=== PATIENT | female | born 1940 | race Caucasian/White ===

== ENCOUNTER → 2018-01-24 12:07 | Outpatient (CLI) | payer MEDICARE, SELFPAY ==
[2018-01-24 13:37] LABS: Cholesterol 202 mg/dL (140-199); HDL Cholesterol 66 mg/dL (40-60); LDL Cholesterol Calculated 116 mg/dL (<100); Triglycerides 101 mg/dL (35-150)
== END ==
PROVIDERS: PCP Family Medicine; Visit Provider Family Medicine
DX: E78.2 Mixed hyperlipidemia (principal)
CPT/HCPCS: 36415; 80061

== ENCOUNTER → 2018-04-07 11:12 | Outpatient (CLI) | payer MEDICARE, SELFPAY ==
[2018-04-07 12:52] LABS: Thyroid Stimulating Hormone 0.69 uIU/mL (0.47-4.68)
[2018-04-07 14:26] LABS: Folate 6.6 ng/mL (2.76-20.0); Vitamin B12 306 pg/mL (239-931)
== END ==
PROVIDERS: PCP Family Medicine; Visit Provider Psychiatry & Neurology Psychiatry
DX: F32.9 Major depressive disorder, single episode, unspecified (principal)
CPT/HCPCS: 36415; 82607; 82746; 84443

== ENCOUNTER → 2018-04-28 09:49 | Outpatient (CLI) | payer MEDICARE, SELFPAY ==
--- NOTE | 2018-04-28 | DI.MRI.S_ITS ---
PROCEDURE: MR LUMBAR SPINE WO CON INDICATIONS: RADICULOPATHY LUMBAR TECHNIQUE: Noncontrast sagittal T1 spin echo and T2 fast echo, sagittal STIR, axial T1 and T2 fast spin echo through the lumbar spine. In cases with scoliosis, additional coronal T2 fast spin echo may be performed. COMPARISON: [facility], MR, L-SPINE WITHOUT CONTRAST, 07/02/2016, 17:30. [facility], CR, L-SPINE 2-3 VIEWS, 06/08/2016, 13:36. FINDINGS: Image quality: Diagnostic, with note made of motion artifact. Alignment and Curvature: There is minimal retrolisthesis at L3-L4 and L4-L5. Bone Marrow: Marrow is of normal overall signal. No acute vertebral body compression fractures. Spinal Cord: Conus medullaris terminates at the L1 level. Visualized cord demonstrates normal signal and size. Paraspinous Soft Tissues: No paravertebral masses. T12-L1: The disc height is well-preserved. Loss of disc signal is seen at this level. Mild to moderate generalized disc bulge is seen. No neural foraminal narrowing is seen. Mild central canal narrowing is seen. L1-L2: The disc height is well-preserved. Loss of disc signal is seen at this level. An annular fissure is seen posteriorly, as on series 5 image 11. Uhwy-[id number]-[id number] disc bulge is seen at this level. No significant neural foraminal narrowing is seen. Mild to moderate central canal narrowing is seen. When comparison is made with the prior examination, these findings are similar. L2-L3: Mild to moderate loss of disc height and disc signal are seen. Moderate generalized disc bulge is seen. Reactive marrow endplate changes are seen, which are hyperintense on T1-weighted and T2-weighted imaging and most consistent with fatty metaplasia (Modic type II changes). Mild to moderate bilateral neural foraminal narrowing is seen. Moderate central canal narrowing is seen. These degenerative changes have progressed compared to 2016. L3-L4: Moderate to severe loss of disc height and disc signal are seen. Reactive marrow endplate changes are seen which are hypointense on T1-weighted imaging and hyperintense on T2 weighted imaging, which is most consistent with edema (Modic type I changes). Moderate to prominent disc bulge is seen, with a central disc extrusion present. There is an associated annular fissure, as on series 5 image 8. There is moderate right-sided and moderate to severe left-sided neural foraminal narrowing. There is associated impingement upon the exiting left L3 nerve root. Moderate to severe central canal narrowing is seen. These degenerative changes are mildly progressed compared to 2016. L4-L5: Moderate loss of disc height and disc signal are seen. Moderate generalized disc bulge is seen. There is a superimposed right lateral recess disc extrusion, with inferior migration of disc material, as on series 4 image 8 and on series 7 image 10. There is a faintly seen annular fissure posteriorly, as on series 3 image 9. Mild to moderate facet hypertrophy is seen. There is moderate to severe right-sided neural foraminal narrowing seen, with associated impingement upon the exiting right L4 nerve root. Moderate left-sided neural foraminal narrowing is seen. Severe central canal narrowing is seen at this level. Compared to 2016, these degenerative changes are minimally progressed. L5-S1: The disc height is well-preserved. Loss of disc signal is seen at this level. At Mild loss of disc height is seen. Loss of disc signal is seen. There is a central disc protrusion, as on series 7 image 5. Mild to moderate hypertrophy is seen. There is mild to moderate left-sided and no significant right-sided neural foraminal narrowing seen. Minimal central canal narrowing is seen. Compared to 2016, these degenerative changes are similar. IMPRESSION: Overall mild progression of degenerative change compared to 2016. The degenerative changes are worst at the L3-L4 and L4-L5 levels. Dictated by: Matthew Borjas M.D. on 04/28/2018 at 10:03 Approved by: Matthew Borjas M.D. on 04/28/2018 at 10:14
== END ==
PROVIDERS: PCP Family Medicine; Visit Provider Physical Medicine & Rehabilitation Pain Medicine
DX: M51.16 Intervertebral disc disorders with radiculopathy, lumbar region (principal)
CPT/HCPCS: 72148

== ENCOUNTER → 2018-07-25 13:34 | Outpatient (CLI) | payer MEDICARE, SELFPAY ==
[2018-07-25 14:19] LABS: Add Manual Diff / Slide Review NO; Basophils Percent Auto 0.7 % (0-2); Eosinophils Percent Auto 1.9 % (2-4); Hematocrit 35.4 % (36-46); Hemoglobin 12.2 g/dL (12.0-16.0); Lymphocytes Percent Auto 16.7 % (25-40); Mean Corpuscular HGB Conc 34.6 % (30-36); Mean Corpuscular Hemoglobin 33.4 PG (26-34); Mean Corpuscular Volume 96.5 fL (80-100); Monocytes Percent Auto 7.9 % (3-14); Neutrophils Absolute Auto 5700 /uL (3000-5900); Neutrophils Percent Auto 72.8 % (50-75); Platelet Count 223 X10^3/uL (150-400); Red Blood Cell Count 3.67 X10^6/uL (4.0-5.2); Red Cell Distribution Width 14.2 % (11.6-14.8); White Blood Cell Count 7.8 X10^3/uL (4.5-11.0)
[2018-07-25 14:21] LABS: Reticulocyte Count, Percent 1.8 % (1.06-2.63)
[2018-07-25 14:30] LABS: Cholesterol 172 mg/dL (140-199); HDL Cholesterol 58 mg/dL (40-60); HEMOLYSIS < 15 (0-50); Iron 63 ug/dL (37-170); LDL Cholesterol Calculated 94 mg/dL (<100); Triglycerides 102 mg/dL (35-150)
[2018-07-25 14:41] LABS: Percent Iron Saturation 23 % (15-50); Total Iron Binding Capacity 273 ug/dL (265-497); Transferrin 229 mg/dL (206-381)
[2018-07-25 15:21] LABS: Alanine Aminotransferase 20 IU/L (9-52); Albumin 4.3 g/dL (3.5-5.0); Albumin Globulin Ratio 1.9 (1.0-2.8); Alkaline Phosphatase 80 U/L (38-126); Aspartate Aminotransferase 18 IU/L (14-36); BUN Creatinine Ratio 16.3 (6-22); Bilirubin Total 0.3 mg/dL (0.2-1.3); Blood Urea Nitrogen 13 mg/dL (7-17); Calcium 9.6 mg/dL (8.4-10.2); Carbon Dioxide 24 mmol/L (22-32); Chloride 103 mmol/L (98-107); Estimated Glomerular Filt Rate > 60.0 mL/min (>60); Globulin 2.3 g/dL (1.7-4.1); Glucose 87 mg/dL (80-110); HEMOLYSIS < 15 (0-50); Potassium 4.5 mmol/L (3.4-5.1); Sodium 139 mmol/L (137-145); Total Protein 6.6 g/dL (6.3-8.2)
[2018-07-25 15:32] LABS: Vitamin D 25 Hydroxy (D3) 36.7 ng/mL (30.0-100.0)
== END ==
PROVIDERS: Family Provider Psychiatry & Neurology Psychiatry; PCP Student in an Organized Health Care Education/Training Program; Visit Provider Student in an Organized Health Care Education/Training Program
DX: D64.9 Anemia, unspecified (principal); E55.9 Vitamin D deficiency, unspecified; R25.1 Tremor, unspecified; F33.1 Major depressive disorder, recurrent, moderate; F41.9 Anxiety disorder, unspecified
CPT/HCPCS: 36415; 80053; 80061; 82306; 83540; 83550; 85025; 85045

== ENCOUNTER → 2018-12-30 13:02 | Outpatient (CLI) | payer MEDICARE, SELFPAY ==
--- NOTE | 2018-12-30 | DI.MRI.S_ITS ---
PROCEDURE: MR CERVICAL SPINE WO CON INDICATIONS: Bilateral arm tremors TECHNIQUE: Noncontrast sagittal T1 spin echo and T2 fast spin echo, sagittal STIR, foraminal oblique sagittal T2 fast spin echo, and axial gradient echo or T2 fast spin echo through the cervical spine. COMPARISON: [facility], , NM BONE SCAN WHOLE BODY, 08/27/2000, 13:52. FINDINGS: Image quality: Excellent. Alignment and Curvature: There is grade 1 anterolisthesis at C6-C7. Bone Marrow: Degenerative endplate signal changes. Spinal Cord: Visualized spinal cord has normal size and signal. No cerebellar tonsillar herniation. Paraspinous Soft Tissues: No paravertebral masses. Prevertebral soft tissues are normal in thickness. C2-C3: Mild loss of disc height and disc desiccation. There is mild posterior disc bulge and bilateral uncovertebral hypertrophy. The central canal is patent. There is moderate foraminal stenosis. No definitive nerve root impingement. C3-C4: Preserved disc height. Mild disc desiccation. There is mild posterior disc bulge. Moderate right and mild left facet arthropathy. The central canal is patent. There is [id number] foraminal stenosis and possible nerve root impingement. C4-C5: Moderate loss of disc height and disc desiccation. There is mild posterior disc bulge and posterior and left posterior lateral annular fissure. Moderate facet arthropathy bilaterally. The central canal is moderately narrowed. There is mild bilateral foraminal stenosis. No definitive nerve root impingement. C5-C6: Moderate loss of disc height and disc desiccation. There is diffuse posterior disc bulge and uncovertebral hypertrophy. Moderate facet arthropathy bilaterally. The central canal is mildly narrowed. There is severe right and moderate left foraminal stenosis. No definitive nerve root impingement. C6-C7: Severe loss of disc height and disc desiccation. There is circumferential posterior disc bulge and posterior and to uncovertebral hypertrophy. Mild facet arthropathy bilaterally. The central canal is moderately narrowed. There is moderate bilateral foraminal stenosis. No definitive nerve root impingement. C7-T1: Preserved height. Mild disc desiccation. There is mild posterior disc bulge. Mild facet arthropathy bilaterally. The central canal is mildly narrowed. No foraminal stenosis. No definitive nerve root impingement. T1-T2: There is a large posterior disc osteophyte complex causing moderate central canal stenosis. IMPRESSION: 1. Multilevel degenerative disc disease and facet arthropathy as described. 2. Multilevel central canal stenosis as described, moderate at C4-C5, C6-7 C7 and T1-T2. 3. Multilevel foraminal stenosis as described. Dictated by: Dougie Rosales M.D. on 12/30/2018 at 16:40 Approved by: Dougie Rosales M.D. on 12/30/2018 at 18:09
--- NOTE | 2018-12-30 | DI.MRI.S_ITS ---
PROCEDURE: MR LUMBAR SPINE WO CON INDICATIONS: Low back and right leg radicular pain. Bilateral leg tremors TECHNIQUE: Noncontrast sagittal T1 spin echo and T2 fast echo, sagittal STIR, axial T1 and T2 fast spin echo through the lumbar spine. In cases with scoliosis, additional coronal T2 fast spin echo may be performed. COMPARISON: [facility], MR, L-SPINE WITHOUT CONTRAST, 07/02/2016, 17:30. [facility], MR, MR LUMBAR SPINE WO CON, 04/28/2018, 10:11. FINDINGS: Image quality: Excellent. Alignment and Curvature: There is mild scoliosis. There is grade 1 retrolisthesis of L3 on L4 and L4-L5. Bone Marrow: Mild chronic compression fracture of T12. There degenerative endplate signal changes scattered in lumbar spine. No acute vertebral body compression fractures. Spinal Cord: Conus medullaris terminates at the L1-L2 level. Visualized cord demonstrates normal signal and size. Paraspinous Soft Tissues: No paravertebral masses. L1-L2: Preserved disc height. Moderate disc desiccation. There is diffuse posterior disc bulge and posterior central annular fissure. Mild bilateral facet arthropathy. The central canal is mildly narrowed. No foraminal stenosis. No definitive nerve root impingement. No significant change from the last exam. L2-L3: Moderate loss of disc height and disc desiccation. There is diffuse posterior disc bulge and disc osteophyte complex. Mild bilateral facet arthropathy. The central canal is mildly narrowed. Moderate bilateral foraminal stenosis. No definitive nerve root impingement. No significant change from the last exam. L3-L4: Severe loss of disc height and disc desiccation. There is diffuse posterior disc bulge and disc osteophyte complex. Mild bilateral facet arthropathy and hypertrophy of ligamentum flavum. The central canal is severely narrowed. Severe bilateral foraminal stenosis and likely nerve root impingement. No significant change from the last exam. L4-L5: Moderate loss of disc height and disc desiccation. There is diffuse posterior disc bulge and posterior central disc protrusion. Mild bilateral facet arthropathy and hypertrophy of ligamentum flavum. The central canal is severely narrowed. Severe bilateral foraminal stenosis and likely nerve root impingement. No significant change from the last exam. L5-S1: Preserved disc height. Moderate disc desiccation. There is diffuse posterior disc bulge and posterior central annular fissure. Mild bilateral facet arthropathy and hypertrophy of ligamentum flavum. The central canal is patent. [id number] bilateral foraminal stenosis and likely nerve root impingement. No significant change from the last exam. IMPRESSION: 1. Multilevel degenerative disc disease and facet arthropathy as described. 2. Multilevel central canal stenosis, severe at L3-L4 and L4-L5. 3. Multilevel foraminal stenosis as described. 4. Mild chronic compression fracture of T12. Dictated by: Dougie Rosales M.D. on 12/30/2018 at 16:29 Approved by: Dougie Rosales M.D. on 12/30/2018 at 18:10
== END ==
PROVIDERS: Family Provider Physical Medicine & Rehabilitation; PCP Student in an Organized Health Care Education/Training Program; Visit Provider Physical Medicine & Rehabilitation Pain Medicine
DX: M54.5 Low back pain (principal); M51.16 Intervertebral disc disorders with radiculopathy, lumbar region; M51.17 Intervertebral disc disorders with radiculopathy, lumbosacral region; M48.07 Spinal stenosis, lumbosacral region; M48.061 Spinal stenosis, lumbar region without neurogenic claudication; M47.26 Other spondylosis with radiculopathy, lumbar region; M47.27 Other spondylosis with radiculopathy, lumbosacral region; M48.54XA Collapsed vertebra, not elsewhere classified, thoracic region, initial encounter for fracture; R25.1 Tremor, unspecified
CPT/HCPCS: 72141; 72148

== ENCOUNTER 2019-01-08 09:45 | Outpatient (RCR) | payer MEDICARE, SELFPAY ==
--- NOTE | 2018-09-29 14:45 | PT.OIE ---
Current Diagnoses Low back pain (09/29/18) Difficulty in walking, not elsewhere classified (09/29/18) Weakness (09/29/18) Fracture of unspecified part of neck of right femur, initial encounter for closed fracture (09/29/18) Past Medical History (Last Reviewed 08/29/18 @ 13:25 by Ranjit Quezada DO) Anxiety (Chronic) Depression (Chronic) Hyperlipidemia (Chronic) Hypertension (Chronic) Lumbar spinal stenosis (Chronic) Lumbosacral radiculopathy (Chronic) Ductal carcinoma in situ (DCIS) of right breast (Resolved 2012) Past Surgical History (Last Reviewed 08/29/18 @ 13:25 by Ranjit Quezada DO) History of ankle surgery (Resolved 2009) History of bilateral mastectomy (Resolved 03/04/13) History of breast augmentation (Resolved 09/2013) History of orthopedic surgery (Resolved 2007) History of removal of cyst (Resolved 1963) History of right hip hemiarthroplasty (Resolved 09/12/17) History of tonsillectomy (Resolved) Status post appendectomy (Resolved) Status post epidural steroid injection (Resolved 07/10/18) Status post total abdominal hysterectomy and bilateral salpingo-oophorectomy (MARTIN-BSO) (Resolved 1962) Provider Visit Care Team Role Provider Type Henok Yanes DO Family Provider Physician Specialty: Psychiatry Address: [address] [place] [address], [id number] Email: [email or web address] Nain Tran MD Attending Provider Physician Primary Care Provider Specialty: Internal Medicine Address: [address] [place] [address], [id number] Email: Physical Therapy Initial Evaluation PT-OP-A Visit Information Start: 09/19/18 16:41 Freq: Status: Active Protocol: Document 09/29/18 11:15 [facility] (Rec: 09/29/18 12:07 [facility] [id number]) Out-Patient Physical Therapy Visit Information Visit Information Visit Type Initial Evaluation Visit Start Time 11:20 Visit Stop Time 12:00 Total Visit Minutes 40 Visit Number 1 PT-OP-B Current Condition Start: 09/19/18 16:41 Freq: Status: Active Protocol: Document 09/29/18 11:15 [facility] (Rec: 09/29/18 12:07 [facility] [id number]) Current Condition History of Current Condition History of Current Condition Pt reports she fell and broke her R hip 1 year ago and had had her hip replaced. Pt reports she is limited in her activity tolerance and has to limit her stops when going shopping. Reports occasionally has pain that goes down R leg and B knee and back pain that limit her. Sometimes her L ankle that also had surgery has pain when stepping down. Reports knees are in terrable condition. Reports pain when leaning against them or when standing up. Reports if she does too much activity her legs get weak and they fall. REports since sciatica her legs have gotten very weak. Pt reports she has been using the cane ever since she had her bout of sciatic after the hip replacement. She thinks sciatica started around May. In the past year, pt reports many many falls. Reports this AM her dog turned over the waste basket, she had to sit down and when she sits down she goes way backwards. Pt reports is also disabled and in unable to help with house activities . Pt reports pt is not supporitive at all and says he is an alcholic. Pt seeing a counselor for depression & home issues. Reports she has been unable to keep up her house d/t back pain and weakness. Pt reports her main issue is leg weakness. Notes sometimes she starts walking and gets going faster and faster and falls. reports tremors in UE and feeling clumsy. Prior Treatments and Tests 2 shots for sciatic and 2nd one helped. Reports therapy last year after hip replacement at [facility] that helped a lot Treatment Goals Patient/Caregiver Goals Pt reports she wants to get more strength. She wants to be able to travel to go visit her dgt in [place]. Improve ability to take care of house PT-OP-E Functional Tests Start: 09/19/18 16:41 Freq: Status: Active Protocol: Document 09/29/18 11:15 [facility] (Rec: 09/29/18 12:07 [facility] [id number]) Functional Tests Tinetti Balance and Gait Assessment Balance Score 8 Gait Score 7 Composite Score 15 Composite Score Impairment Rating 40 to <60% Impaired (Score 12- 16) PT-OP-G Mobility & Gait Start: 09/19/18 16:41 Freq: Status: Active Protocol: Document 09/29/18 11:15 [facility] (Rec: 09/29/18 12:07 [facility] [id number]) OP Gait Assessment Comments Gait Comments Pt amb with SPC with good step length but lateral leaning. PT-OP-M Strength Start: 09/19/18 16:41 Freq: Status: Active Protocol: Document 09/29/18 11:15 [facility] (Rec: 09/29/18 12:07 [facility] [id number]) Hip Strength Hip Manual Muscle Testing Right Flexion (L2) 3+ Fair+ Abduction 3+ Fair+ External Rotation 3- Fair- Internal Rotation 4- Good- Left Flexion (L2) 4- Good- Abduction 4 Good External Rotation 4+ Good+ Internal Rotation 4- Good- Knee Strength Knee Manual Muscle Testing Left Flexion (S2) 4+ Good+ Extension (L3) 4 Good Right Flexion (S2) 4+ Good+ Extension (L3) 4 Good Comments pain in back w/flex PT-OP-Q Treatments Start: 09/19/18 16:41 Freq: Status: Active Protocol: Document 09/29/18 11:15 [facility] (Rec: 09/29/18 12:07 [facility] [id number]) Therapeutic Exercises Supine Exercises SLR Supine Exercise Name SLR Side bilateral Reps/Minutes 10 bridge Supine Exercise Name bridge Side bilateral Reps/Minutes 10 PT-OP-T Assessment and Plan Start: 09/19/18 16:41 Freq: Status: Active Protocol: Document 09/29/18 11:15 [facility] (Rec: 09/29/18 14:45 [facility] [id number]) Physical Therapy Assessment Rehab Potential Rehabilitation Potential Good Evaluation Complexity Number of Personal Factors/Comorbidities 3 or More Number of Body Systems Impaired 4 or More Clinical Presentation at Evaluation Evolving Impairments Impairments Activity Tolerance Balance Functional Activities Functional Mobility Gait Pain Posture Soft Tissue Mobility Strength Goals functional ability Short Term Goal (STG) 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 STG Duration 10/30/18 Aviation Project Manager Goal (LTG) Pt will feel strong enough to be able to travel to visit her dgt. LTG Duration 11/27/18 balance Short Term Goal (STG) Pt will have improvement of tinnetti to 20/28. STG Duration 10/30/18 Aviation Project Manager Goal (LTG) Improvement of tinnetti to 25/ 28 to show low risk for falls LTG Duration 11/27/18 strength Short Term Goal (STG) Pt will be indep with HEP STG Duration 10/30/18 Aviation Project Manager Goal (LTG) Pt will have 4+/5 overall LE strength to improve ability to do functional activities at home. LTG Duration 11/27/18 Assessment Summary Assessment Pt presents with overall complaint of weakness in BLE and impaired balance and gait since fall causing R hip fx and R JENNIFER. SHe has back pain and knee pain that do limit her functional ability, but is feels most limited by strength and balance. Pt would benefit from skilled PT to improve functional ability around the house and the community. Physical Therapy Plan Frequency and Duration Frequency of Treatment 2x/Week Duration of Treatment 2 months Plan of Care Start Date 09/29/18 Plan of Care End Date 11/27/18 Therapeutic Interventions Therapeutic Interventions Aquatic Therapy Balance Training Gait Training Home Exercise Program Joint Mobilizations Manual Therapy Neuromuscular Re-education Patient/Caregiver Education Self-Care/Home Management Soft Tissue Mobilization Taping Therapeutic Activities Therapeutic Exercises Modalities Cold Pack/Ice Massage Electric Stimulation Hot Packs Ultrasound Next Visit Focus/Plan Next Note Type Treatment Note Next Visit Plan seated stepped, balance board, leg press, balance exercises, discuss silver sneakers?
--- NOTE | 2018-09-29 14:46 | PT.OPPOC ---
Current Diagnoses Low back pain (09/29/18) Difficulty in walking, not elsewhere classified (09/29/18) Weakness (09/29/18) Fracture of unspecified part of neck of right femur, initial encounter for closed fracture (09/29/18) Provider Visit Care Team Role Provider Type Henok Yanes DO Family Provider Physician Specialty: Psychiatry Address: [facility] [place], [address] Email: [email or web address] Nain Tran MD Attending Provider Physician Primary Care Provider Specialty: Internal Medicine Address: [address] [place] [address], [address] Email: Plan Of Care PT-OP-T Assessment and Plan Start: 09/19/18 16:41 Freq: Status: Active Protocol: Document 09/29/18 11:15 [facility] (Rec: 09/29/18 14:45 [facility] [id number]) Physical Therapy Assessment Rehab Potential Rehabilitation Potential Good Evaluation Complexity Number of Personal Factors/Comorbidities 3 or More Number of Body Systems Impaired 4 or More Clinical Presentation at Evaluation Evolving Impairments Impairments Activity Tolerance Balance Functional Activities Functional Mobility Gait Pain Posture Soft Tissue Mobility Strength Goals functional ability Short Term Goal (STG) 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 STG Duration 10/30/18 Label Cutter Goal (LTG) Pt will feel strong enough to be able to travel to visit her dgt. LTG Duration 11/27/18 balance Short Term Goal (STG) Pt will have improvement of tinnetti to 20/28. STG Duration 10/30/18 Mcfp Goal (LTG) Improvement of tinnetti to 25/ 28 to show low risk for falls LTG Duration 11/27/18 strength Short Term Goal (STG) Pt will be indep with HEP STG Duration 10/30/18 Label Cutter Goal (LTG) Pt will have 4+/5 overall LE strength to improve ability to do functional activities at home. LTG Duration 11/27/18 Assessment Summary Assessment Pt presents with overall complaint of weakness in BLE and impaired balance and gait since fall causing R hip fx and R JENNIFER. SHe has back pain and knee pain that do limit her functional ability, but is feels most limited by strength and balance. Pt would benefit from skilled PT to improve functional ability around the house and the community. Physical Therapy Plan Frequency and Duration Frequency of Treatment 2x/Week Duration of Treatment 2 months Plan of Care Start Date 09/29/18 Plan of Care End Date 11/27/18 Therapeutic Interventions Therapeutic Interventions Aquatic Therapy Balance Training Gait Training Home Exercise Program Joint Mobilizations Manual Therapy Neuromuscular Re-education Patient/Caregiver Education Self-Care/Home Management Soft Tissue Mobilization Taping Therapeutic Activities Therapeutic Exercises Modalities Cold Pack/Ice Massage Electric Stimulation Hot Packs Ultrasound Next Visit Focus/Plan Next Note Type Treatment Note Next Visit Plan seated stepped, balance board, leg press, balance exercises, discuss silver sneakers? Plan of Care Dates Plan of Care Start Date 09/29/18 Plan of Care End Date 11/27/18 Please Sign and Return: I have reviewed this Plan of Care and certify that the skilled therapy services above are required to meet the patient?s needs. Physician Signature Date Printed Name and Credentials Clinical Instructor Signature Printed Name and Credentials
--- NOTE | 2018-10-02 15:18 | PT.OTN ---
Current Diagnoses Fracture of unspecified part of neck of right femur, initial encounter for closed fracture (10/02/18) Physical Therapy Treatment Note PT-OP-A Visit Information Start: 09/19/18 16:41 Freq: Status: Active Protocol: Document 10/02/18 13:34 [facility] (Rec: 10/02/18 15:18 [facility] [id number]) Out-Patient Physical Therapy Visit Information Visit Information Visit Type Treatment Note Visit Start Time 13:34 Visit Stop Time 14:17 Total Visit Minutes 43 Visit Number 2 Number of COUNTRY PRINTER Visits 0 Evaluation Information Evaluation Date 09/29/18 PT-OP-B Current Condition Start: 09/19/18 16:41 Freq: Status: Active Protocol: Document 09/29/18 11:15 [facility] (Rec: 09/29/18 12:07 [facility] [id number]) Current Condition History of Current Condition History of Current Condition Pt reports she fell and broke her R hip 1 year ago and had had her hip replaced. Pt reports she is limited in her activity tolerance and has to limit her stops when going shopping. Reports occasionally has pain that goes down R leg and B knee and back pain that limit her. Sometimes her L ankle that also had surgery has pain when stepping down. Reports knees are in terrable condition. Reports pain when leaning against them or when standing up. Reports if she does too much activity her legs get weak and they fall. REports since sciatica her legs have gotten very weak. Pt reports she has been using the cane ever since she had her bout of sciatic after the hip replacement. She thinks sciatica started around May. In the past year, pt reports many many falls. Reports this AM her dog turned over the waste basket, she had to sit down and when she sits down she goes way backwards. Pt reports is also disabled and in unable to help with house activities . Pt reports pt is not supporitive at all and says he is an alcholic. Pt seeing a counselor for depression & home issues. Reports she has been unable to keep up her house d/t back pain and weakness. Pt reports her main issue is leg weakness. Notes sometimes she starts walking and gets going faster and faster and falls. reports tremors in UE and feeling clumsy. Prior Treatments and Tests 2 shots for sciatic and 2nd one helped. Reports therapy last year after hip replacement at [facility] that helped a lot Treatment Goals Patient/Caregiver Goals Pt reports she wants to get more strength. She wants to be able to travel to go visit her dgt in [place]. Improve ability to take care of house PT-OP-C Subjective Start: 09/19/18 16:41 Freq: Status: Active Protocol: Document 10/02/18 13:34 [facility] (Rec: 10/02/18 15:18 [facility] [id number]) OP-PT Subjective Patient Comments Patient Comments She has been doing one set of the ex's, but was too tired to do 2 sets. States they made her muscle sore. PT-OP-E Functional Tests Start: 09/19/18 16:41 Freq: Status: Active Protocol: Document 09/29/18 11:15 [facility] (Rec: 09/29/18 12:07 [facility] [id number]) Functional Tests Tinetti Balance and Gait Assessment Balance Score 8 Gait Score 7 Composite Score 15 Composite Score Impairment Rating 40 to <60% Impaired (Score 12- 16) PT-OP-G Mobility & Gait Start: 09/19/18 16:41 Freq: Status: Active Protocol: Document 09/29/18 11:15 [facility] (Rec: 09/29/18 12:07 [facility] [id number]) OP Gait Assessment Comments Gait Comments Pt amb with SPC with good step length but lateral leaning. PT-OP-M Strength Start: 09/19/18 16:41 Freq: Status: Active Protocol: Document 09/29/18 11:15 [facility] (Rec: 09/29/18 12:07 [facility] [id number]) Hip Strength Hip Manual Muscle Testing Right Flexion (L2) 3+ Fair+ Abduction 3+ Fair+ External Rotation 3- Fair- Internal Rotation 4- Good- Left Flexion (L2) 4- Good- Abduction 4 Good External Rotation 4+ Good+ Internal Rotation 4- Good- Knee Strength Knee Manual Muscle Testing Left Flexion (S2) 4+ Good+ Extension (L3) 4 Good Right Flexion (S2) 4+ Good+ Extension (L3) 4 Good Comments pain in back w/flex PT-OP-Q Treatments Start: 09/19/18 16:41 Freq: Status: Active Protocol: Document 10/02/18 13:34 [facility] (Rec: 10/02/18 15:18 [facility] [id number]) Cardio Equipment Recumbent Elliptical (Biodex) Duration (Minutes) 5 Resistance 1 Seat Position 4 Gym Equipment Shuttle Recovery Bilateral Squats Resistance 37 Shuttle Recovery Platform Stable Reps/Time 10x, 5x Unilateral Squats Resistance 12 Shuttle Recovery Platform Stable Reps/Time 10x Therapeutic Exercises Supine Exercises SLR Supine Exercise Name SLR Side bilateral Reps/Minutes 10 x 2 bridge Supine Exercise Name bridge Side bilateral Reps/Minutes 10 x 2 Sitting Exercises Knee ext/flex Sitting Exercise Name Hold 5 sec's Side right Reps/Minutes 10 x Comments H.O. 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 STG Duration 10/30/18 Health Occupations Instructor Goal (LTG) Pt will feel strong enough to be able to travel to visit her dgt. LTG Duration 11/27/18 balance Short Term Goal (STG) Pt will have improvement of tinnetti to 20/28. STG Duration 10/30/18 Health Occupations Instructor Goal (LTG) Improvement of tinnetti to 25/ 28 to show low risk for falls LTG Duration 11/27/18 strength Short Term Goal (STG) Pt will be indep with HEP STG Duration 10/30/18 Health Occupations Instructor Goal (LTG) Pt will have 4+/5 overall LE strength to improve ability to do functional activities at home. LTG Duration 11/27/18 Progress Towards Goals Progress Comments Goal #1 Progressing with strengthening. Goal #2 No change Goal #3 No change Assessment Summary Assessment Pt required review with ex's and cuing to slow ex's for eccentric strengthening. Pt fatigues quickly. Arthritic R knee may be a hinderance in LE strengthening. Physical Therapy Plan Frequency and Duration Frequency of Treatment 2x/Week Duration of Treatment 2 months Plan of Care Start Date 09/29/18 Plan of Care End Date 11/27/18 Therapeutic Interventions Therapeutic Interventions Aquatic Therapy Balance Training Gait Training Home Exercise Program Joint Mobilizations Manual Therapy Neuromuscular Re-education Patient/Caregiver Education Self-Care/Home Management Soft Tissue Mobilization Taping Therapeutic Activities Therapeutic Exercises Modalities Cold Pack/Ice Massage Electric Stimulation Hot Packs Ultrasound Next Visit Focus/Plan Next Note Type Treatment Note Next Visit Plan Progress program. Add balance board, balance exercises, discuss silver sneakers?
--- NOTE | 2018-10-06 12:31 | PT.OTN ---
Current Diagnoses Fracture of unspecified part of neck of right femur, initial encounter for closed fracture (10/06/18) Physical Therapy Treatment Note PT-OP-A Visit Information Start: 09/19/18 16:41 Freq: Status: Active Protocol: Document 10/06/18 11:25 LRN (Rec: 10/06/18 12:29 LRN [id number]) Out-Patient Physical Therapy Visit Information Visit Information Visit Type Treatment Note Visit Start Time 11:25 Visit Stop Time 12:10 Total Visit Minutes 45 Visit Number 3 Number of RN BSN Visits 0 Evaluation Information Evaluation Date 09/29/18 PT-OP-B Current Condition Start: 09/19/18 16:41 Freq: Status: Active Protocol: Document 09/29/18 11:15 [facility] (Rec: 09/29/18 12:07 [facility] [id number]) Current Condition History of Current Condition History of Current Condition Pt reports she fell and broke her R hip 1 year ago and had had her hip replaced. Pt reports she is limited in her activity tolerance and has to limit her stops when going shopping. Reports occasionally has pain that goes down R leg and B knee and back pain that limit her. Sometimes her L ankle that also had surgery has pain when stepping down. Reports knees are in terrable condition. Reports pain when leaning against them or when standing up. Reports if she does too much activity her legs get weak and they fall. REports since sciatica her legs have gotten very weak. Pt reports she has been using the cane ever since she had her bout of sciatic after the hip replacement. She thinks sciatica started around May. In the past year, pt reports many many falls. Reports this AM her dog turned over the waste basket, she had to sit down and when she sits down she goes way backwards. Pt reports is also disabled and in unable to help with house activities . Pt reports pt is not supporitive at all and says he is an alcholic. Pt seeing a counselor for depression & home issues. Reports she has been unable to keep up her house d/t back pain and weakness. Pt reports her main issue is leg weakness. Notes sometimes she starts walking and gets going faster and faster and falls. reports tremors in UE and feeling clumsy. Prior Treatments and Tests 2 shots for sciatic and 2nd one helped. Reports therapy last year after hip replacement at [facility] [place] [facility] that helped a lot Treatment Goals Patient/Caregiver Goals Pt reports she wants to get more strength. She wants to be able to travel to go visit her dgt in [place]. Improve ability to take care of house PT-OP-C Subjective Start: 09/19/18 16:41 Freq: Status: Active Protocol: Document 10/06/18 11:25 LRN (Rec: 10/06/18 12:29 LRN [id number]) OP-PT Subjective Patient Comments Patient Comments Did ex's daily and was sore and hip hurt the next day. PT-OP-E Functional Tests Start: 09/19/18 16:41 Freq: Status: Active Protocol: Document 09/29/18 11:15 [facility] (Rec: 09/29/18 12:07 [facility] [id number]) Functional Tests Tinetti Balance and Gait Assessment Balance Score 8 Gait Score 7 Composite Score 15 Composite Score Impairment Rating 40 to <60% Impaired (Score 12- 16) PT-OP-G Mobility & Gait Start: 09/19/18 16:41 Freq: Status: Active Protocol: Document 09/29/18 11:15 LR (Rec: 09/29/18 12:07 [facility] [id number]) OP Gait Assessment Comments Gait Comments Pt amb with SPC with good step length but lateral leaning. PT-OP-M Strength Start: 09/19/18 16:41 Freq: Status: Active Protocol: Document 09/29/18 11:15 [facility] (Rec: 09/29/18 12:07 [facility] [id number]) Hip Strength Hip Manual Muscle Testing Right Flexion (L2) 3+ Fair+ Abduction 3+ Fair+ External Rotation 3- Fair- Internal Rotation 4- Good- Left Flexion (L2) 4- Good- Abduction 4 Good External Rotation 4+ Good+ Internal Rotation 4- Good- Knee Strength Knee Manual Muscle Testing Left Flexion (S2) 4+ Good+ Extension (L3) 4 Good Right Flexion (S2) 4+ Good+ Extension (L3) 4 Good Comments pain in back w/flex PT-OP-Q Treatments Start: 09/19/18 16:41 Freq: Status: Active Protocol: Document 10/06/18 11:25 LRN (Rec: 10/06/18 12:29 LRN [id number]) Cardio Equipment Recumbent Elliptical (Biodex) Duration (Minutes) 8 Resistance 1 Seat Position 4 Other keeping at 30rpm or greater Therapeutic Exercises Supine Exercises SLR Supine Exercise Name SLR Side bilateral Reps/Minutes 7x, 10x bridge Supine Exercise Name bridge Side bilateral Reps/Minutes 10 x Sitting Exercises Resisted Knee flex Sitting Exercise Name T-Band knee flex strengthening Side bilateral Resistance Lev 2 Equipment Used Step stool & T-Band Reps/Minutes 15x Comments Start with feet on step stool Knee ext/flex Sitting Exercise Name Knee ext Side bilateral Resistance 2# Reps/Minutes 10x Therapeutic Activity Therapeutic Activity Transfer training Name Sit <-> Stand Reps/Minutes 2x Comments Up/Down from R side of table Neuro Re-Education Treatment Balance Activities Balance board Details Fwd/Bwd Equipment Tilt board PT-OP-T Assessment and Plan Start: 09/19/18 16:41 Freq: Status: Active Protocol: Document 10/06/18 11:25 LRN (Rec: 10/06/18 12:29 LRN [id number]) Physical Therapy Assessment Assessment Summary Assessment Pt Left LBP limiting her ex tolerance. STM may be needed to improve the pt's tolerance to exercise. She needed training for neutral spine positioning with ex's to minimize back pain. Pt is interested in [place] program. Physical Therapy Plan Next Visit Focus/Plan Next Note Type Treatment Note Next Visit Plan Progress program and balance exercises. Further discussion on silver Issue Lev 2 T-Band and handouts for knee strengthening HEP. MFR to trunk as needed to minimize back pain.
--- NOTE | 2018-10-17 14:58 | PT.OTN ---
Current Diagnoses Fracture of unspecified part of neck of right femur, initial encounter for closed fracture (10/17/18) Physical Therapy Treatment Note PT-OP-A Visit Information Start: 09/19/18 16:41 Freq: Status: Active Protocol: Document 10/17/18 10:34 LRN (Rec: 10/17/18 11:15 LRN [id number]) Out-Patient Physical Therapy Visit Information Visit Information Visit Type Treatment Note Visit Note Pt 15' late, had trouble finding parking lot. Visit Start Time 10:45 Visit Stop Time 11:15 Total Visit Minutes 30 Visit Number 4 Number of CLAY MINE CUTTING MACHINE OPERATOR Visits 0 Evaluation Information Evaluation Date 09/29/18 PT-OP-B Current Condition Start: 09/19/18 16:41 Freq: Status: Active Protocol: Document 09/29/18 11:15 LR (Rec: 09/29/18 12:07 [facility] [id number]) Current Condition History of Current Condition History of Current Condition Pt reports she fell and broke her R hip 1 year ago and had had her hip replaced. Pt reports she is limited in her activity tolerance and has to limit her stops when going shopping. Reports occasionally has pain that goes down R leg and B knee and back pain that limit her. Sometimes her L ankle that also had surgery has pain when stepping down. Reports knees are in terrable condition. Reports pain when leaning against them or when standing up. Reports if she does too much activity her legs get weak and they fall. REports since sciatica her legs have gotten very weak. Pt reports she has been using the cane ever since she had her bout of sciatic after the hip replacement. She thinks sciatica started around May. In the past year, pt reports many many falls. Reports this AM her dog turned over the waste basket, she had to sit down and when she sits down she goes way backwards. Pt reports is also disabled and in unable to help with house activities . Pt reports pt is not supporitive at all and says he is an alcholic. Pt seeing a counselor for depression & home issues. Reports she has been unable to keep up her house d/t back pain and weakness. Pt reports her main issue is leg weakness. Notes sometimes she starts walking and gets going faster and faster and falls. reports tremors in UE and feeling clumsy. Prior Treatments and Tests 2 shots for sciatic and 2nd one helped. Reports therapy last year after hip replacement at [facility] that helped a lot Treatment Goals Patient/Caregiver Goals Pt reports she wants to get more strength. She wants to be able to travel to go visit her dgt in [place]. Improve ability to take care of house PT-OP-C Subjective Start: 09/19/18 16:41 Freq: Status: Active Protocol: Document 10/17/18 10:34 LRN (Rec: 10/17/18 11:15 LRN [id number]) OP-PT Subjective Patient Comments Patient Comments States she was not able to exercise every day because the first day she was so sore she couldn't get out of bed and couldn't ex for 2 days. PT-OP-E Functional Tests Start: 09/19/18 16:41 Freq: Status: Active Protocol: Document 09/29/18 11:15 [facility] (Rec: 09/29/18 12:07 [facility] [id number]) Functional Tests Tinetti Balance and Gait Assessment Balance Score 8 Gait Score 7 Composite Score 15 Composite Score Impairment Rating 40 to <60% Impaired (Score 12- 16) PT-OP-G Mobility & Gait Start: 09/19/18 16:41 Freq: Status: Active Protocol: Document 09/29/18 11:15 LR (Rec: 09/29/18 12:07 [facility] [id number]) OP Gait Assessment Comments Gait Comments Pt amb with SPC with good step length but lateral leaning. PT-OP-M Strength Start: 09/19/18 16:41 Freq: Status: Active Protocol: Document 09/29/18 11:15 LR (Rec: 09/29/18 12:07 [facility] [id number]) Hip Strength Hip Manual Muscle Testing Right Flexion (L2) 3+ Fair+ Abduction 3+ Fair+ External Rotation 3- Fair- Internal Rotation 4- Good- Left Flexion (L2) 4- Good- Abduction 4 Good External Rotation 4+ Good+ Internal Rotation 4- Good- Knee Strength Knee Manual Muscle Testing Left Flexion (S2) 4+ Good+ Extension (L3) 4 Good Right Flexion (S2) 4+ Good+ Extension (L3) 4 Good Comments pain in back w/flex PT-OP-Q Treatments Start: 09/19/18 16:41 Freq: Status: Active Protocol: Document 10/17/18 10:34 LRN (Rec: 10/17/18 11:15 LRN [id number]) Therapeutic Exercises Supine Exercises bridge Supine Exercise Name bridge Side bilateral Reps/Minutes 30 x Prone Exercises FLORENCIO Prone Exercise Name Prone push ups Side bilateral Reps/Minutes 10 x 2 Sitting Exercises Resisted Knee flex Sitting Exercise Name T-Band knee flex strengthening Side bilateral Resistance Lev 2 Equipment Used Step stool & T-Band Reps/Minutes 30 x Comments Start with feet on step stool Neuro Re-Education Treatment Vestibular Rehabilitation VOR Retraining Details Head turns looking at static spot Distance From Target 10 Speed Slow Position Sitting/Standing PT-OP-T Assessment and Plan Start: 09/19/18 16:41 Freq: Status: Active Protocol: Document 10/17/18 10:34 LRN (Rec: 10/17/18 11:15 LRN [id number]) Physical Therapy Assessment Assessment Summary Assessment Today the pt was 30' late because she was confused with where the PT parking lot was. She came in a wheel chair because she was so fatigued walking to therapy from where she was parked. The pt shows signs balance deficit due to vestibular involvement with dizziness onset with VOR exercise. Further training to improve balance and strengthening to improve tolerance to daily activities. Physical Therapy Plan Frequency and Duration Frequency of Treatment 2x/Week Duration of Treatment 2 months Plan of Care Start Date 09/29/18 Plan of Care End Date 11/27/18 Next Visit Focus/Plan Next Note Type Treatment Note Next Visit Plan Progress program and balance/ vestibular exercises. Discuss [employer] Class. Issue Lev 2 T-Band and handouts for knee strengthening HEP. MFR to trunk as needed to minimize back pain.
--- NOTE | 2018-10-31 12:44 | PT.OTN ---
Current Diagnoses Fracture of unspecified part of neck of right femur, initial encounter for closed fracture (10/31/18) Physical Therapy Treatment Note PT-OP-A Visit Information Start: 09/19/18 16:41 Freq: Status: Active Protocol: Document 10/31/18 11:20 LRN (Rec: 10/31/18 12:22 LRN [id number]) Out-Patient Physical Therapy Visit Information Visit Information Visit Type Treatment Note Visit Start Time 11:20 Visit Stop Time 11:58 Total Visit Minutes 38 Visit Number 5 Number of DRY END OPERATOR Visits 0 Evaluation Information Evaluation Date 09/29/18 PT-OP-B Current Condition Start: 09/19/18 16:41 Freq: Status: Active Protocol: Document 09/29/18 11:15 [facility] (Rec: 09/29/18 12:07 [facility] [id number]) Current Condition History of Current Condition History of Current Condition Pt reports she fell and broke her R hip 1 year ago and had had her hip replaced. Pt reports she is limited in her activity tolerance and has to limit her stops when going shopping. Reports occasionally has pain that goes down R leg and B knee and back pain that limit her. Sometimes her L ankle that also had surgery has pain when stepping down. Reports knees are in terrable condition. Reports pain when leaning against them or when standing up. Reports if she does too much activity her legs get weak and they fall. REports since sciatica her legs have gotten very weak. Pt reports she has been using the cane ever since she had her bout of sciatic after the hip replacement. She thinks sciatica started around May. In the past year, pt reports many many falls. Reports this AM her dog turned over the waste basket, she had to sit down and when she sits down she goes way backwards. Pt reports is also disabled and in unable to help with house activities . Pt reports pt is not supporitive at all and says he is an alcholic. Pt seeing a counselor for depression & home issues. Reports she has been unable to keep up her house d/t back pain and weakness. Pt reports her main issue is leg weakness. Notes sometimes she starts walking and gets going faster and faster and falls. reports tremors in UE and feeling clumsy. Prior Treatments and Tests 2 shots for sciatic and 2nd one helped. Reports therapy last year after hip replacement at [facility] that helped a lot Treatment Goals Patient/Caregiver Goals Pt reports she wants to get more strength. She wants to be able to travel to go visit her dgt in [place]. Improve ability to take care of house PT-OP-C Subjective Start: 09/19/18 16:41 Freq: Status: Active Protocol: Document 10/31/18 11:20 LRN (Rec: 10/31/18 12:22 LRN [id number]) OP-PT Subjective Patient Comments Patient Comments States the last ex's given caused too much back pain, so stopped after not too many reps. She reports several nights ago her R thigh and LE hurt, could hardly get out of bed. Needed to take Alleve and Gabapentin. Worried its Sciatic pain. PT-OP-E Functional Tests Start: 09/19/18 16:41 Freq: Status: Active Protocol: Document 09/29/18 11:15 [facility] (Rec: 09/29/18 12:07 [facility] [id number]) Functional Tests Tinetti Balance and Gait Assessment Balance Score 8 Gait Score 7 Composite Score 15 Composite Score Impairment Rating 40 to <60% Impaired (Score 12- 16) PT-OP-G Mobility & Gait Start: 09/19/18 16:41 Freq: Status: Active Protocol: Document 09/29/18 11:15 [facility] (Rec: 09/29/18 12:07 [facility] [id number]) OP Gait Assessment Comments Gait Comments Pt amb with SPC with good step length but lateral leaning. PT-OP-M Strength Start: 09/19/18 16:41 Freq: Status: Active Protocol: Document 09/29/18 11:15 [facility] (Rec: 09/29/18 12:07 [facility] [id number]) Hip Strength Hip Manual Muscle Testing Right Flexion (L2) 3+ Fair+ Abduction 3+ Fair+ External Rotation 3- Fair- Internal Rotation 4- Good- Left Flexion (L2) 4- Good- Abduction 4 Good External Rotation 4+ Good+ Internal Rotation 4- Good- Knee Strength Knee Manual Muscle Testing Left Flexion (S2) 4+ Good+ Extension (L3) 4 Good Right Flexion (S2) 4+ Good+ Extension (L3) 4 Good Comments pain in back w/flex PT-OP-Q Treatments Start: 09/19/18 16:41 Freq: Status: Active Protocol: Document 10/31/18 11:20 LRN (Rec: 10/31/18 12:22 LRN [id number]) Therapeutic Exercises Sitting Exercises Resisted Knee flex Sitting Exercise Name T-Band knee flex strengthening Side bilateral Resistance Lev 2 Equipment Used Step stool & T-Band Reps/Minutes 20 x Comments Start with feet on step stool Knee ext/flex Sitting Exercise Name Knee ext Side bilateral Resistance Lev 2 T-/Band Reps/Minutes 20x Standing Exercises Hip AB strengthening/balance trng Standing Exercise Name Side stepping Side bilateral Resistance Lev 2 T-Band Reps/Minutes 4' Neuro Re-Education Treatment Balance Activities Balance board Details Fwd/Bwd/side to side Equipment Tilt board, Gait belt Reps/Duration 10' Comments With and without UE support Coordination Activities Finger tip to finger tip Details Stable and target that moved Speed Static targets, pt slow movement Reps/Duration 7' Comments Pt had greater difficulty hitting static target with L hand. R hand had a little difficulty hitting target that had moved, Vestibular Rehabilitation VOR Retraining Details Smooth pursuit & gaze stabilization ex's Distance From Target 10' Speed Slow Position Sitting/Standing Comments Pt had dizziness with diagonal smooth pursuit and gaze stabilization (horizontal). Self-Care/Home Management Treatment Education Other Education Discussed Silver sneaker program with pt. PT-OP-T Assessment and Plan Start: 09/19/18 16:41 Freq: Status: Active Protocol: Document 10/31/18 11:20 LRN (Rec: 10/31/18 12:22 LRN [id number]) Physical Therapy Assessment Progress Towards Goals Progress Towards Goals Slow Progress due to Medical Issues Progress Comments Complaints of R sciatic type pain is hindering her progress . Assessment Summary Assessment Pt no enthusiatic regarding [employer] Sneaker Program; therefore doubtful she will check into the program. The pt shows signs balance deficit due to vestibular involvement with dizziness onset with VOR exercise. She is limited with strengthening due to her arthritic knees and R Sciatic type pain. Further assessment of RLE pain is needed to decrease and improve the pt's tolerance to exercise. Further training to improve balance and strengthening to improve tolerance to daily activities. Physical Therapy Plan Frequency and Duration Frequency of Treatment 2x/Week Duration of Treatment 2 months Plan of Care Start Date 09/29/18 Plan of Care End Date 11/27/18 Next Visit Focus/Plan Next Note Type Treatment Note Next Visit Plan Check R LE for Sciatic pain. Progress program and balance/ vestibular exercises. Issue Lev 2 T-Band and handouts for knee strengthening HEP. MFR to trunk as needed to minimize back pain.
--- NOTE | 2018-11-03 14:15 | PT.OTN ---
Current Diagnoses Fracture of unspecified part of neck of right femur, initial encounter for closed fracture (11/03/18) Physical Therapy Treatment Note PT-OP-A Visit Information Start: 09/19/18 16:41 Freq: Status: Active Protocol: Document 11/03/18 11:19 LRN (Rec: 11/03/18 12:18 LRN [id number]) Out-Patient Physical Therapy Visit Information Visit Information Visit Type Treatment Note Visit Start Time 11:19 Visit Stop Time 11:58 Total Visit Minutes 39 Visit Number 6 Number of POULTRY SCALDER Visits 0 Evaluation Information Evaluation Date 09/29/18 PT-OP-B Current Condition Start: 09/19/18 16:41 Freq: Status: Active Protocol: Document 09/29/18 11:15 [facility] (Rec: 09/29/18 12:07 [facility] [id number]) Current Condition History of Current Condition History of Current Condition Pt reports she fell and broke her R hip 1 year ago and had had her hip replaced. Pt reports she is limited in her activity tolerance and has to limit her stops when going shopping. Reports occasionally has pain that goes down R leg and B knee and back pain that limit her. Sometimes her L ankle that also had surgery has pain when stepping down. Reports knees are in terrable condition. Reports pain when leaning against them or when standing up. Reports if she does too much activity her legs get weak and they fall. REports since sciatica her legs have gotten very weak. Pt reports she has been using the cane ever since she had her bout of sciatic after the hip replacement. She thinks sciatica started around May. In the past year, pt reports many many falls. Reports this AM her dog turned over the waste basket, she had to sit down and when she sits down she goes way backwards. Pt reports is also disabled and in unable to help with house activities . Pt reports pt is not supporitive at all and says he is an alcholic. Pt seeing a counselor for depression & home issues. Reports she has been unable to keep up her house d/t back pain and weakness. Pt reports her main issue is leg weakness. Notes sometimes she starts walking and gets going faster and faster and falls. reports tremors in UE and feeling clumsy. Prior Treatments and Tests 2 shots for sciatic and 2nd one helped. Reports therapy last year after hip replacement at [facility] that helped a lot Treatment Goals Patient/Caregiver Goals Pt reports she wants to get more strength. She wants to be able to travel to go visit her dgt in [place]. Improve ability to take care of house PT-OP-C Subjective Start: 09/19/18 16:41 Freq: Status: Active Protocol: Document 11/03/18 11:19 LRN (Rec: 11/03/18 12:18 LRN [id number]) OP-PT Subjective Patient Comments Patient Comments R leg is not hurting right now . Pt has Lev 2 T-Band at home . liked the balance ex's. PT-OP-E Functional Tests Start: 09/19/18 16:41 Freq: Status: Active Protocol: Document 09/29/18 11:15 LR (Rec: 09/29/18 12:07 [facility] [id number]) Functional Tests Tinetti Balance and Gait Assessment Balance Score 8 Gait Score 7 Composite Score 15 Composite Score Impairment Rating 40 to <60% Impaired (Score 12- 16) PT-OP-G Mobility & Gait Start: 09/19/18 16:41 Freq: Status: Active Protocol: Document 09/29/18 11:15 LR (Rec: 09/29/18 12:07 [facility] [id number]) OP Gait Assessment Comments Gait Comments Pt amb with SPC with good step length but lateral leaning. PT-OP-M Strength Start: 09/19/18 16:41 Freq: Status: Active Protocol: Document 09/29/18 11:15 LR (Rec: 09/29/18 12:07 [facility] [id number]) Hip Strength Hip Manual Muscle Testing Right Flexion (L2) 3+ Fair+ Abduction 3+ Fair+ External Rotation 3- Fair- Internal Rotation 4- Good- Left Flexion (L2) 4- Good- Abduction 4 Good External Rotation 4+ Good+ Internal Rotation 4- Good- Knee Strength Knee Manual Muscle Testing Left Flexion (S2) 4+ Good+ Extension (L3) 4 Good Right Flexion (S2) 4+ Good+ Extension (L3) 4 Good Comments pain in back w/flex PT-OP-Q Treatments Start: 09/19/18 16:41 Freq: Status: Active Protocol: Document 11/03/18 11:19 LRN (Rec: 11/03/18 12:18 LRN [id number]) Gym Equipment Shuttle Recovery Bilateral Squats Resistance 62# Shuttle Recovery Platform Stable Reps/Time 8x2, 5x Shuttle Balance Staggered stance Details Static stance Reps/Duration 3' Comments Pt legs were feeling tired. Normal stance Details Static, with Head turns with horizontal eye movements Reps/Duration 10' Comments Increased sway and some LOB with only horiz eye movements. Therapeutic Exercises Sitting Exercises Resisted Knee flex Sitting Exercise Name T-Band knee flex strengthening Side bilateral Resistance Lev 2 Equipment Used Step stool & T-Band Reps/Minutes 10x, 20x Comments Start with feet on step stool Knee ext/flex Sitting Exercise Name Knee ext Side bilateral Resistance Lev 2 T-/Band Reps/Minutes 20x Standing Exercises Hip AB strengthening/balance trng Standing Exercise Name Side stepping Side bilateral Resistance Lev 2 T-Band Reps/Minutes 4' Sit to Stand Side bilateral Reps/Minutes 5x Comments Previously put on HOLD due to arthritic instability of R knee Neuro Re-Education Treatment Vestibular Rehabilitation VOR Retraining Details Smooth pursuit & gaze stabilization ex's Speed Slow Position On Shuttle Balance Comments Pt had dizziness with gaze stabilization (horizontal). 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 STG Duration 10/30/18 (11/03/18 GOAL MET for carrying laundry up/down stairs) Halfway Goal (LTG) Pt will feel strong enough to be able to travel to visit her dgt. LTG Duration 11/27/18 balance Short Term Goal (STG) Pt will have improvement of tinnetti to 20/28. STG Duration 10/30/18 Halfway Goal (LTG) Improvement of tinnetti to 25/ to show low risk for falls LTG Duration 11/27/18 strength Short Term Goal (STG) Pt will be indep with HEP STG Duration 10/30/18 Attorney Lawyer Goal (LTG) Pt will have 4+/5 overall LE strength to improve ability to do functional activities at home. LTG Duration 11/27/18 Progress Towards Goals Progress Towards Goals Slow Progress due to Medical Issues Progress Comments Functional STG was MET. Assessment Summary Assessment Pt has Lev 2 T-Band. She is not having RLE Sciatic pain today, appears controlled by medications. She tolerated greater resistance on the shuttle indicating improved knee strength. Functional ability is improved, she is now carrying laundry up/down stairs. Balance deficit due to vestibular involvement with dizziness onset with VOR exercise and LE weakness. Strengthening is hindered due to her arthritic knees and R Sciatic type pain. Not able to assess RLE pain because not present. Further training to improve balance and LE strength to improve tolerance to daily activities. Physical Therapy Plan Frequency and Duration Frequency of Treatment 2x/Week Duration of Treatment 2 months Plan of Care Start Date 09/29/18 Plan of Care End Date 11/27/18 Next Visit Focus/Plan Next Note Type Treatment Note Next Visit Plan Monitor R LE for Sciatic pain. Progress balance/vestibular exercises. MFR to trunk as needed to minimize back pain.
--- NOTE | 2018-11-06 15:37 | PT.OTN ---
Current Diagnoses Fracture of unspecified part of neck of right femur, initial encounter for closed fracture (11/06/18) Physical Therapy Treatment Note PT-OP-A Visit Information Start: 09/19/18 16:41 Freq: Status: Active Protocol: Document 11/06/18 11:21 LRN (Rec: 11/06/18 11:46 LRN [id number]) Out-Patient Physical Therapy Visit Information Visit Information Visit Type Treatment Note Visit Start Time 11:21 Visit Stop Time 12:05 Total Visit Minutes 44 Visit Number 7 Number of TRAM OPERATOR Visits 0 Evaluation Information Evaluation Date 09/29/18 PT-OP-B Current Condition Start: 09/19/18 16:41 Freq: Status: Active Protocol: Document 09/29/18 11:15 [facility]H (Rec: 09/29/18 12:07 [facility] [id number]) Current Condition History of Current Condition History of Current Condition Pt reports she fell and broke her R hip 1 year ago and had had her hip replaced. Pt reports she is limited in her activity tolerance and has to limit her stops when going shopping. Reports occasionally has pain that goes down R leg and B knee and back pain that limit her. Sometimes her L ankle that also had surgery has pain when stepping down. Reports knees are in terrable condition. Reports pain when leaning against them or when standing up. Reports if she does too much activity her legs get weak and they fall. REports since sciatica her legs have gotten very weak. Pt reports she has been using the cane ever since she had her bout of sciatic after the hip replacement. She thinks sciatica started around May. In the past year, pt reports many many falls. Reports this AM her dog turned over the waste basket, she had to sit down and when she sits down she goes way backwards. Pt reports is also disabled and in unable to help with house activities . Pt reports pt is not supporitive at all and says he is an alcholic. Pt seeing a counselor for depression & home issues. Reports she has been unable to keep up her house d/t back pain and weakness. Pt reports her main issue is leg weakness. Notes sometimes she starts walking and gets going faster and faster and falls. reports tremors in UE and feeling clumsy. Prior Treatments and Tests 2 shots for sciatic and 2nd one helped. Reports therapy last year after hip replacement at [facility] that helped a lot Treatment Goals Patient/Caregiver Goals Pt reports she wants to get more strength. She wants to be able to travel to go visit her dgt in [place]. Improve ability to take care of house PT-OP-C Subjective Start: 09/19/18 16:41 Freq: Status: Active Protocol: Document 11/06/18 11:21 LRN (Rec: 11/06/18 11:46 LRN [id number]) OP-PT Subjective Patient Comments Patient Comments May have over did ex's because fell twice. Once was overreaching and grabbed a twirling chair and was twirled to the ground; the other time she reports either tripping on something or her R leg gave out on her and she went to the ground. PT-OP-E Functional Tests Start: 09/19/18 16:41 Freq: Status: Active Protocol: Document 09/29/18 11:15 [facility] (Rec: 09/29/18 12:07 [facility] [id number]) Functional Tests Tinetti Balance and Gait Assessment Balance Score 8 Gait Score 7 Composite Score 15 Composite Score Impairment Rating 40 to <60% Impaired (Score 12- 16) PT-OP-G Mobility & Gait Start: 09/19/18 16:41 Freq: Status: Active Protocol: Document 09/29/18 11:15 LR (Rec: 09/29/18 12:07 [facility] [id number]) OP Gait Assessment Comments Gait Comments Pt amb with SPC with good step length but lateral leaning. PT-OP-M Strength Start: 09/19/18 16:41 Freq: Status: Active Protocol: Document 09/29/18 11:15 [facility] (Rec: 09/29/18 12:07 [facility] [id number]) Hip Strength Hip Manual Muscle Testing Right Flexion (L2) 3+ Fair+ Abduction 3+ Fair+ External Rotation 3- Fair- Internal Rotation 4- Good- Left Flexion (L2) 4- Good- Abduction 4 Good External Rotation 4+ Good+ Internal Rotation 4- Good- Knee Strength Knee Manual Muscle Testing Left Flexion (S2) 4+ Good+ Extension (L3) 4 Good Right Flexion (S2) 4+ Good+ Extension (L3) 4 Good Comments pain in back w/flex PT-OP-Q Treatments Start: 09/19/18 16:41 Freq: Status: Active Protocol: Document 11/06/18 11:21 LRN (Rec: 11/06/18 11:46 LRN [id number]) Therapeutic Exercises Supine Exercises Ankle/Toe DF Side right Reps/Minutes 15x Sidelying Exercises Hip AB Side right Reps/Minutes 15x2 Comments With assist for proper hip AB movement Clamshell Side right Reps/Minutes 10x2 Comments With assist and cuing for neutral core positioning Sitting Exercises Resisted Knee flex Sitting Exercise Name T-Band knee flex strengthening Side bilateral Resistance Lev 2 Equipment Used Step stool & T-Band Reps/Minutes 10x, 20x Comments Start with feet on step stool Knee ext/flex Sitting Exercise Name Knee ext Side left Resistance Lev 2 T-/Band Reps/Minutes 20x Manual Therapy Treatment Soft Tissue Mobilization R Gluteal Body Location R Upper Gluteal Mobilization Type Strumming Intensity/Depth Moderate Body Position Sidelying Joint Mobilizations Lumbar Joint L3 Direction PA Grade II Body Position Sidelying Comments Oscillations Manual Traction Lumbar Details Traction at Pelvis Body Position Supine Comments 3' Self-Care/Home Management Treatment Education Patient Education Home Exercise Program Activities Self-Care/Home Management Activities Issued & reviewed HEP: R Clamshell, and R hip AB strengthening. PT-OP-T Assessment and Plan Start: 09/19/18 16:41 Freq: Status: Active Protocol: Document 11/06/18 11:21 LRN (Rec: 11/06/18 12:09 LRN [id number]) Physical Therapy Assessment Progress Towards Goals Progress Towards Goals Slow Progress due to Medical Issues Progress Comments Functional STG was MET. Assessment Summary Assessment Pt is having RLE Sciatic pain to start. She appears to have neurological weakness of her R ankle DF's and possibly R Quads. Her pain is controlled by medications. Her balance and stability appears compromised today and showed poor sitting balance during knee flex/ext strengthening exercise. Balance deficit appear worse with onset of sciatic pain as well as vestibular involvement with dizziness onset with VOR exercise. Strengthening is hindered due to her arthritic knees and R Sciatic type pain. Further training needed to improve balance and LE strength to improve tolerance to daily activities. Physical Therapy Plan Frequency and Duration Frequency of Treatment 2x/Week Duration of Treatment 2 months Plan of Care Start Date 09/29/18 Plan of Care End Date 11/27/18 Next Visit Focus/Plan Next Note Type Treatment Note Next Visit Plan Monitor and treat R LE for Sciatic pain in order to improve pt's balance and stability. Progress balance/ vestibular exercises.
--- NOTE | 2018-11-10 15:39 | PT.OTN ---
Current Diagnoses Fracture of unspecified part of neck of right femur, initial encounter for closed fracture (11/10/18) Physical Therapy Treatment Note PT-OP-A Visit Information Start: 09/19/18 16:41 Freq: Status: Active Protocol: Document 11/10/18 11:22 LRN (Rec: 11/10/18 12:18 LRN [id number]) Out-Patient Physical Therapy Visit Information Visit Information Visit Type Treatment Note Visit Start Time 11:22 Visit Stop Time 12:09 Total Visit Minutes 47 Visit Number 8 Number of TABLE SETTER Visits 0 Evaluation Information Evaluation Date 09/29/18 PT-OP-B Current Condition Start: 09/19/18 16:41 Freq: Status: Active Protocol: Document 09/29/18 11:15 [facility]H (Rec: 09/29/18 12:07 [facility] [id number]) Current Condition History of Current Condition History of Current Condition Pt reports she fell and broke her R hip 1 year ago and had had her hip replaced. Pt reports she is limited in her activity tolerance and has to limit her stops when going shopping. Reports occasionally has pain that goes down R leg and B knee and back pain that limit her. Sometimes her L ankle that also had surgery has pain when stepping down. Reports knees are in terrable condition. Reports pain when leaning against them or when standing up. Reports if she does too much activity her legs get weak and they fall. REports since sciatica her legs have gotten very weak. Pt reports she has been using the cane ever since she had her bout of sciatic after the hip replacement. She thinks sciatica started around May. In the past year, pt reports many many falls. Reports this AM her dog turned over the waste basket, she had to sit down and when she sits down she goes way backwards. Pt reports is also disabled and in unable to help with house activities . Pt reports pt is not supporitive at all and says he is an alcholic. Pt seeing a counselor for depression & home issues. Reports she has been unable to keep up her house d/t back pain and weakness. Pt reports her main issue is leg weakness. Notes sometimes she starts walking and gets going faster and faster and falls. reports tremors in UE and feeling clumsy. Prior Treatments and Tests 2 shots for sciatic and 2nd one helped. Reports therapy last year after hip replacement at [facility] that helped a lot Treatment Goals Patient/Caregiver Goals Pt reports she wants to get more strength. She wants to be able to travel to go visit her dgt in [place]. Improve ability to take care of house PT-OP-C Subjective Start: 09/19/18 16:41 Freq: Status: Active Protocol: Document 11/10/18 11:22 LRN (Rec: 11/10/18 12:18 LRN [id number]) OP-PT Subjective Patient Comments Patient Comments Didn't exercise because she had a cold. Having a dental implant in tomorrow. PT-OP-E Functional Tests Start: 09/19/18 16:41 Freq: Status: Active Protocol: Document 09/29/18 11:15 LR (Rec: 09/29/18 12:07 [facility] [id number]) Functional Tests Tinetti Balance and Gait Assessment Balance Score 8 Gait Score 7 Composite Score 15 Composite Score Impairment Rating 40 to <60% Impaired (Score 12- 16) PT-OP-G Mobility & Gait Start: 09/19/18 16:41 Freq: Status: Active Protocol: Document 09/29/18 11:15 LR (Rec: 09/29/18 12:07 [facility] [id number]) OP Gait Assessment Comments Gait Comments Pt amb with SPC with good step length but lateral leaning. PT-OP-M Strength Start: 09/19/18 16:41 Freq: Status: Active Protocol: Document 09/29/18 11:15 LR (Rec: 09/29/18 12:07 [facility] [id number]) Hip Strength Hip Manual Muscle Testing Right Flexion (L2) 3+ Fair+ Abduction 3+ Fair+ External Rotation 3- Fair- Internal Rotation 4- Good- Left Flexion (L2) 4- Good- Abduction 4 Good External Rotation 4+ Good+ Internal Rotation 4- Good- Knee Strength Knee Manual Muscle Testing Left Flexion (S2) 4+ Good+ Extension (L3) 4 Good Right Flexion (S2) 4+ Good+ Extension (L3) 4 Good Comments pain in back w/flex PT-OP-Q Treatments Start: 09/19/18 16:41 Freq: Status: Active Protocol: Document 11/10/18 11:22 LRN (Rec: 11/10/18 12:18 LRN [id number]) Gym Equipment Shuttle Balance Side sway Details Shifting and rocking side to side Reps/Duration 5' Comments Blue setting Working on stable upper body, moving at hips/knees to rock Normal stance Details Static, with Head turns with horizontal eye movements Reps/Duration 10' Comments Increased sway and some LOB with only horiz eye movements. Therapeutic Exercises Standing Exercises Standing wgt shift Standing Exercise Name Wgt shift keeping COG & upper body stable Side bilateral Reps/Minutes 12' Comments Pt able to perform occasionally for short periods Hip AB strengthening/balance trng Standing Exercise Name Side stepping Side bilateral Resistance Lev 2 T-Band Reps/Minutes 4' Neuro Re-Education Treatment Balance Activities Standing balance Details Lifts and lift holds MARCH & SIDE LIFTS Surface Level Reps/Duration 10' Comments Without UE support Balance board Details Fwd/Bwd/side to side Equipment Tilt board, Gait belt Reps/Duration 5' Comments Without UE support PT-OP-T Assessment and Plan Start: 09/19/18 16:41 Freq: Status: Active Protocol: Document 11/10/18 11:22 LRN (Rec: 11/10/18 12:18 LRN [id number]) Physical Therapy Assessment Goals functional ability Short Term Goal (STG) Pt will be able to do small bulk filler for short durations. STG Duration 10/30/18 (11/03/18 GOAL MET for carrying laundry up/down stairs) Usp Goal (LTG) Pt will feel strong enough to be able to travel to visit her dgt. LTG Duration 11/27/18 balance Short Term Goal (STG) Pt will have improvement of tinetti to 20/28. STG Duration 10/30/18 Usp Goal (LTG) Improvement of tinetti to 25/ 28 to show low risk for falls LTG Duration 11/27/18 strength Short Term Goal (STG) Pt will be indep with HEP STG Duration 10/30/18 Mortgage Collector Goal (LTG) Pt will have 4+/5 overall LE strength to improve ability to do functional activities at home. LTG Duration 11/27/18 Progress Towards Goals Progress Towards Goals Slow Progress due to Medical Issues Progress Comments Functional STG was MET. Assessment Summary Assessment No RLE Sciatic pain to start, pain controlled by medications . Improved balance and stability today, possibly due to no sciatic pain limiting exercises. Strengthening is hindered due to her arthritic knees. Pt has difficulty using hip/knee strategy for maintaining balance; she shifts with her upper body instead. Further training needed to improve balance and LE strength to improve tolerance to daily activities. Physical Therapy Plan Frequency and Duration Frequency of Treatment 2x/Week Duration of Treatment 2 months Plan of Care Start Date 09/29/18 Plan of Care End Date 11/27/18 Next Visit Focus/Plan Next Note Type Treatment Note Next Visit Plan Monitor and treat R LE for Sciatic pain as needed to improve balance and stability. Continue LE strengthening & balance/vestibular exercises. Progress note in 2 visits.
--- NOTE | 2018-11-17 14:31 | PT.OTN ---
Current Diagnoses Fracture of unspecified part of neck of right femur, initial encounter for closed fracture (11/17/18) Physical Therapy Treatment Note PT-OP-A Visit Information Start: 09/19/18 16:41 Freq: Status: Active Protocol: Document 11/17/18 11:20 LRN (Rec: 11/17/18 12:31 LRN [id number]) Out-Patient Physical Therapy Visit Information Visit Information Visit Type Treatment Note Visit Start Time 11:20 Visit Stop Time 12:00 Total Visit Minutes 40 Visit Number 9 Number of POLICE BOOKING OFFICER Visits 0 Evaluation Information Evaluation Date 09/29/18 PT-OP-B Current Condition Start: 09/19/18 16:41 Freq: Status: Active Protocol: Document 09/29/18 11:15 LRH (Rec: 09/29/18 12:07 [facility] [id number]) Current Condition History of Current Condition History of Current Condition Pt reports she fell and broke her R hip 1 year ago and had had her hip replaced. Pt reports she is limited in her activity tolerance and has to limit her stops when going shopping. Reports occasionally has pain that goes down R leg and B knee and back pain that limit her. Sometimes her L ankle that also had surgery has pain when stepping down. Reports knees are in terrable condition. Reports pain when leaning against them or when standing up. Reports if she does too much activity her legs get weak and they fall. REports since sciatica her legs have gotten very weak. Pt reports she has been using the cane ever since she had her bout of sciatic after the hip replacement. She thinks sciatica started around May. In the past year, pt reports many many falls. Reports this AM her dog turned over the waste basket, she had to sit down and when she sits down she goes way backwards. Pt reports is also disabled and in unable to help with house activities . Pt reports pt is not supporitive at all and says he is an alcholic. Pt seeing a counselor for depression & home issues. Reports she has been unable to keep up her house d/t back pain and weakness. Pt reports her main issue is leg weakness. Notes sometimes she starts walking and gets going faster and faster and falls. reports tremors in UE and feeling clumsy. Prior Treatments and Tests 2 shots for sciatic and 2nd one helped. Reports therapy last year after hip replacement at [facility] that helped a lot Treatment Goals Patient/Caregiver Goals Pt reports she wants to get more strength. She wants to be able to travel to go visit her dgt in [place]. Improve ability to take care of house PT-OP-C Subjective Start: 09/19/18 16:41 Freq: Status: Active Protocol: Document 11/17/18 11:20 LRN (Rec: 11/17/18 12:31 LRN [id number]) OP-PT Subjective Patient Comments Patient Comments Hurt all over first in morning . Took Gabapentin and Alleve, so no pain currently. PT-OP-E Functional Tests Start: 09/19/18 16:41 Freq: Status: Active Protocol: Document 09/29/18 11:15 LR (Rec: 09/29/18 12:07 [facility] [id number]) Functional Tests Tinetti Balance and Gait Assessment Balance Score 8 Gait Score 7 Composite Score 15 Composite Score Impairment Rating 40 to <60% Impaired (Score 12- 16) PT-OP-G Mobility & Gait Start: 09/19/18 16:41 Freq: Status: Active Protocol: Document 09/29/18 11:15 LR (Rec: 09/29/18 12:07 [facility] [id number]) OP Gait Assessment Comments Gait Comments Pt amb with SPC with good step length but lateral leaning. PT-OP-M Strength Start: 09/19/18 16:41 Freq: Status: Active Protocol: Document 09/29/18 11:15 LRH (Rec: 09/29/18 12:07 [facility] [id number]) Hip Strength Hip Manual Muscle Testing Right Flexion (L2) 3+ Fair+ Abduction 3+ Fair+ External Rotation 3- Fair- Internal Rotation 4- Good- Left Flexion (L2) 4- Good- Abduction 4 Good External Rotation 4+ Good+ Internal Rotation 4- Good- Knee Strength Knee Manual Muscle Testing Left Flexion (S2) 4+ Good+ Extension (L3) 4 Good Right Flexion (S2) 4+ Good+ Extension (L3) 4 Good Comments pain in back w/flex PT-OP-Q Treatments Start: 09/19/18 16:41 Freq: Status: Active Protocol: Document 11/17/18 11:20 LRN (Rec: 11/17/18 12:31 LRN [id number]) Cardio Equipment Recumbent Elliptical (Biodex) Duration (Minutes) 5 Resistance 1 Seat Position 5 Other keeping at 30rpm or greater Gym Equipment Shuttle Recovery Bilateral Squats Resistance 62# Shuttle Recovery Platform Stable Reps/Time 15x2 Unilateral Squats Resistance 12 Shuttle Recovery Platform Stable Reps/Time 10x Therapeutic Exercises Standing Exercises Standing wgt shift Standing Exercise Name Neuro paulo: Wgt shift keeping COG & upper body stable Side bilateral Reps/Minutes 15' Comments Pt able to perform occasionally for short periods Sit to Stand Side bilateral Reps/Minutes 5x Comments Previously put on HOLD due to arthritic instability of R knee Neuro Re-Education Treatment Balance Activities Recovery training from LOB backwards Details Pt practice of recovery when given perturbation of backward pull Equipment Gait Belt & Min>Mod A. Reps/Duration 5' Comments Technique of step back and ending with wide stance. Standing balance Details Lifts and lift holds MARCH & SIDE LIFTS Surface Level Reps/Duration 5' Comments Without UE support Self-Care/Home Management Treatment Education Patient Education Home Exercise Program Activities Self-Care/Home Management Activities Reissued previously given HEP. 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 STG Duration 10/30/18 (11/03/18 GOAL MET for carrying laundry up/down stairs) Railway Head Tender Goal (LTG) Pt will feel strong enough to be able to travel to visit her dgt. LTG Duration 11/27/18 balance Short Term Goal (STG) Pt will have improvement of tinetti to 20/28. STG Duration 10/30/18 Usp Goal (LTG) Improvement of tinetti to 25/ 28 to show low risk for falls LTG Duration 11/27/18 strength Short Term Goal (STG) Pt will be indep with HEP STG Duration 10/30/18 Usp Goal (LTG) Pt will have 4+/5 overall LE strength to improve ability to do functional activities at home. LTG Duration 11/27/18 Progress Towards Goals Progress Towards Goals Slow Progress due to Medical Issues Progress Comments Functional STG was MET. Assessment Summary Assessment Pt needs encouragement to do strengthening ex's at home. No RLE Sciatic pain, controlled by medications this AM. Pt demonstrates improved LE strength with ability to tolerate greater resistance on squat ex's. Pt has difficulty using hip/knee strategy for maintaining balance; she shifts with her upper body instead. Further training needed to improve balance and LE strength to improve tolerance to daily activities. Physical Therapy Plan Frequency and Duration Frequency of Treatment 2x/Week Duration of Treatment 2 months Plan of Care Start Date 09/29/18 Plan of Care End Date 11/27/18 Next Visit Focus/Plan Next Note Type Progress Note Next Visit Plan Monitor and treat R LE for Sciatic pain as needed to improve balance and stability. Continue LE strengthening & balance/vestibular exercises. Progress note next visit.
--- NOTE | 2018-11-20 14:46 | PT.OTN ---
Current Diagnoses Fracture of unspecified part of neck of right femur, initial encounter for closed fracture (11/20/18) Physical Therapy Treatment Note PT-OP-A Visit Information Start: 09/19/18 16:41 Freq: Status: Active Protocol: Document 11/20/18 11:16 LRN (Rec: 11/20/18 12:16 LRN [id number]) Out-Patient Physical Therapy Visit Information Visit Information Visit Type Progress Note Visit Start Time 11:16 Visit Stop Time 12:05 Total Visit Minutes 49 Visit Number 10 Number of DISTRIBUTION ENGINEERING TECHNOLOGIST Visits 0 Evaluation Information Evaluation Date 09/29/18 PT-OP-B Current Condition Start: 09/19/18 16:41 Freq: Status: Active Protocol: Document 09/29/18 11:15 LRH (Rec: 09/29/18 12:07 [facility] [id number]) Current Condition History of Current Condition History of Current Condition Pt reports she fell and broke her R hip 1 year ago and had had her hip replaced. Pt reports she is limited in her activity tolerance and has to limit her stops when going shopping. Reports occasionally has pain that goes down R leg and B knee and back pain that limit her. Sometimes her L ankle that also had surgery has pain when stepping down. Reports knees are in terrable condition. Reports pain when leaning against them or when standing up. Reports if she does too much activity her legs get weak and they fall. REports since sciatica her legs have gotten very weak. Pt reports she has been using the cane ever since she had her bout of sciatic after the hip replacement. She thinks sciatica started around May. In the past year, pt reports many many falls. Reports this AM her dog turned over the waste basket, she had to sit down and when she sits down she goes way backwards. Pt reports is also disabled and in unable to help with house activities . Pt reports pt is not supporitive at all and says he is an alcholic. Pt seeing a counselor for depression & home issues. Reports she has been unable to keep up her house d/t back pain and weakness. Pt reports her main issue is leg weakness. Notes sometimes she starts walking and gets going faster and faster and falls. reports tremors in UE and feeling clumsy. Prior Treatments and Tests 2 shots for sciatic and 2nd one helped. Reports therapy last year after hip replacement at [facility] that helped a lot Treatment Goals Patient/Caregiver Goals Pt reports she wants to get more strength. She wants to be able to travel to go visit her dgt in [place]. Improve ability to take care of house PT-OP-C Subjective Start: 09/19/18 16:41 Freq: Status: Active Protocol: Document 11/20/18 11:16 LRN (Rec: 11/20/18 12:16 LRN [id number]) OP-PT Subjective Patient Comments Patient Comments Did ex's yesterday. Wobbly today. Pt excited to demonstrate her improved ability to weight shift. OP-PT Pain Assessment Pain Assessment Grid Paper Pain Assessment Grid Completed Yes Location Legs Pain Location Details Navarro LE sciatic pain: Ant & Post LE's Intensity 3 PT-OP-E Functional Tests Start: 09/19/18 16:41 Freq: Status: Active Protocol: Document 09/29/18 11:15 [facility] (Rec: 09/29/18 12:07 [facility] [id number]) Functional Tests Tinetti Balance and Gait Assessment Balance Score 8 Gait Score 7 Composite Score 15 Composite Score Impairment Rating 40 to <60% Impaired (Score 12- 16) PT-OP-G Mobility & Gait Start: 09/19/18 16:41 Freq: Status: Active Protocol: Document 09/29/18 11:15 [facility] (Rec: 09/29/18 12:07 [facility] [id number]) OP Gait Assessment Comments Gait Comments Pt amb with SPC with good step length but lateral leaning. PT-OP-M Strength Start: 09/19/18 16:41 Freq: Status: Active Protocol: Document 09/29/18 11:15 [facility] (Rec: 09/29/18 12:07 [facility] [id number]) Hip Strength Hip Manual Muscle Testing Right Flexion (L2) 3+ Fair+ Abduction 3+ Fair+ External Rotation 3- Fair- Internal Rotation 4- Good- Left Flexion (L2) 4- Good- Abduction 4 Good External Rotation 4+ Good+ Internal Rotation 4- Good- Knee Strength Knee Manual Muscle Testing Left Flexion (S2) 4+ Good+ Extension (L3) 4 Good Right Flexion (S2) 4+ Good+ Extension (L3) 4 Good Comments pain in back w/flex PT-OP-Q Treatments Start: 09/19/18 16:41 Freq: Status: Active Protocol: Document 11/20/18 11:16 LRN (Rec: 11/20/18 12:16 LRN [id number]) Therapeutic Exercises Sitting Exercises Knee ext/flex Sitting Exercise Name Knee ext Side left Resistance Lev 2 T-/Band Reps/Minutes 15x Standing Exercises Knee flex Standing Exercise Name Foot lifts Side bilateral Reps/Minutes 15x each Comments Holding onto railing Soleus stretch Standing Exercise Name Stretch followed immediately with active ankle DF Side bilateral Reps/Minutes 8' Comments Pt not able to have a good understanding of the stretch after much training Gastroc stretch Standing Exercise Name Stretch followed immediately with active ankle DF Side bilateral Reps/Minutes 8' Comments Much training needed to do correctly. Stand to sit Standing Exercise Name Popping up to stance when feeling buttock touch table Equipment Used Mat table Comments Table 21 inches high. Standing wgt shift Standing Exercise Name Neuro paulo: Wgt shift keeping COG & upper body stable Side bilateral Reps/Minutes 5' Comments Pt able to perform occasionally for short periods Sit to Stand Standing Exercise Name Eccentric partial sit Side bilateral Equipment Used Webbed chair & 21 tall Reps/Minutes 10x, 15x Self-Care/Home Management Treatment Education Patient Education Home Exercise Program Activities Self-Care/Home Management Activities Issued and reviewed HEP: Standing knee flexion, sit to stand, Gastroc & Soleus stretching. Reviewed previous HEP of sitting knee ext & flex. PT-OP-T Assessment and Plan Start: 09/19/18 16:41 Freq: Status: Active Protocol: Document 11/20/18 11:16 LRN (Rec: 11/20/18 14:31 LRN [id number]) Physical Therapy Assessment Rehab Potential Rehabilitation Potential Good Evaluation Complexity Number of Personal Factors/Comorbidities 3 or More Number of Body Systems Impaired 4 or More Clinical Presentation at Evaluation Evolving Impairments Impairments Activity Tolerance Balance Functional Activities Functional Mobility Gait Pain Posture Soft Tissue Mobility Strength Goals functional ability Short Term Goal (STG) Pt will be able to do small wind up operator for short durations. STG Duration 11/03/18 GOAL MET for carrying laundry up/down stairs Credentialing Manager Goal (LTG) Pt will feel strong enough to be able to travel to visit her dgt. LTG Duration 01/23/19 balance Short Term Goal (STG) Pt will have improvement of tinetti to 20/28. STG Duration 12/28/18 Correction Goal (LTG) Improvement of tinetti to 25/ 28 to show low risk for falls LTG Duration 01/23/19 strength Short Term Goal (STG) Pt will be indep with HEP STG Duration 12/28/18 Correction Goal (LTG) Pt will have 4+/5 overall LE strength to improve ability to do functional activities at home. LTG Duration 01/23/19 Progress Towards Goals Progress Towards Goals Slow Progress due to Medical Issues Progress Comments Functional Ability: STG: MET. LTG: Progressing Balance: Tinetti STG & LTG's not assessed. Strength: STG: Progressing with HEP. LTG: Strength of LE's is improving. Assessment Summary Assessment Pt progress is slow due to poor memory, variable onset of R LE Sciatic pain, and arthritis of the knees. Pt's sciatic pain is usually controlled by medications. Overall the pt demonstrates improved LE strength with ability to tolerate greater resistance on squat ex's. She has difficulty with balance demonstrating poor weight shifting ability. I would recommend continuation of skilled physical therapy for further training to improve balance and LE strength and to improve her tolerance to daily activities. Physical Therapy Plan Frequency and Duration Frequency of Treatment 2x/Week Duration of Treatment 2 months Plan of Care Start Date 11/20/18 Plan of Care End Date 01/23/19 Therapeutic Interventions Therapeutic Interventions Aquatic Therapy Balance Training Gait Training Home Exercise Program Joint Mobilizations Manual Therapy Neuromuscular Re-education Patient/Caregiver Education Self-Care/Home Management Soft Tissue Mobilization Taping Therapeutic Activities Therapeutic Exercises Modalities Cold Pack/Ice Massage Electric Stimulation Hot Packs Ultrasound Next Visit Focus/Plan Next Note Type Treatment Note Next Visit Plan Review hip strengthening HEP ( hip AB & Clamshell), improve ankle DF mobility and strength , strengthen LE's, balance/ vestibular exercises & training for proper weight shift. Monitor and treat R LE for Sciatic pain as needed to improve balance and stability .
--- NOTE | 2018-11-20 14:46 | PT.OPPOC ---
Current Diagnoses Fracture of unspecified part of neck of right femur, initial encounter for closed fracture (11/20/18) Provider Visit Care Team Role Provider Type Henok Yanes DO Family Provider Physician Specialty: Psychiatry Address: [address] [place], [address] Email: [email or web address] Tran MD Attending Provider Physician Primary Care Provider Specialty: Internal Medicine Address: [address] [place] [address], [id number] Email: Plan Of Care PT-OP-T Assessment and Plan Start: 09/19/18 16:41 Freq: Status: Active Protocol: Document 11/20/18 11:16 LRN (Rec: 11/20/18 14:31 LRN [id number]) Physical Therapy Assessment Rehab Potential Rehabilitation Potential Good Evaluation Complexity Number of Personal Factors/Comorbidities 3 or More Number of Body Systems Impaired 4 or More Clinical Presentation at Evaluation Evolving Impairments Impairments Activity Tolerance Balance Functional Activities Functional Mobility Gait Pain Posture Soft Tissue Mobility Strength Goals functional ability Short Term Goal (STG) 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 STG Duration 11/03/18 GOAL MET for carrying laundry up/down stairs Long-Term Goal (LTG) Pt will feel strong enough to be able to travel to visit her dgt. LTG Duration 01/23/19 balance Short Term Goal (STG) Pt will have improvement of tinetti to 20/28. STG Duration 12/28/18 Long-Term Goal (LTG) Improvement of tinetti to 25/ 28 to show low risk for falls LTG Duration 01/23/19 strength Short Term Goal (STG) Pt will be indep with HEP STG Duration 12/28/18 Long-Term Goal (LTG) Pt will have 4+/5 overall LE strength to improve ability to do functional activities at home. LTG Duration 01/23/19 Progress Towards Goals Progress Towards Goals Slow Progress due to Medical Issues Progress Comments Functional Ability: STG: MET. LTG: Progressing Balance: Tinetti STG & LTG's not assessed. Strength: STG: Progressing with HEP. LTG: Strength of LE's is improving. Assessment Summary Assessment Pt progress is slow due to poor memory, variable onset of R LE Sciatic pain, and arthritis of the knees. Pt's sciatic pain is usually controlled by medications. Overall the pt demonstrates improved LE strength with ability to tolerate greater resistance on squat ex's. She has difficulty with balance demonstrating poor weight shifting ability. I would recommend continuation of skilled physical therapy for further training to improve balance and LE strength and to improve her tolerance to daily activities. Physical Therapy Plan Frequency and Duration Frequency of Treatment 2x/Week Duration of Treatment 2 months Plan of Care Start Date 11/20/18 Plan of Care End Date 01/23/19 Therapeutic Interventions Therapeutic Interventions Aquatic Therapy Balance Training Gait Training Home Exercise Program Joint Mobilizations Manual Therapy Neuromuscular Re-education Patient/Caregiver Education Self-Care/Home Management Soft Tissue Mobilization Taping Therapeutic Activities Therapeutic Exercises Modalities Cold Pack/Ice Massage Electric Stimulation Hot Packs Ultrasound Next Visit Focus/Plan Next Note Type Treatment Note Next Visit Plan Review hip strengthening HEP ( hip AB & Clamshell), improve ankle DF mobility and strength , strengthen LE's, balance/ vestibular exercises & training for proper weight shift. Monitor and treat R LE for Sciatic pain as needed to improve balance and stability . Plan of Care Dates Plan of Care Start Date 11/20/18 Plan of Care End Date 01/23/19 Please Sign and Return: I have reviewed this Plan of Care and certify that the skilled therapy services above are required to meet the patient?s needs. Physician Signature Date Printed Name and Credentials Clinical Instructor Signature Printed Name and Credentials
--- NOTE | 2018-12-11 14:47 | PT.OTN ---
Current Diagnoses Fracture of unspecified part of neck of right femur, initial encounter for closed fracture (12/11/18) Physical Therapy Treatment Note PT-OP-A Visit Information Start: 09/19/18 16:41 Freq: Status: Active Protocol: Document 12/11/18 10:10 LRN (Rec: 12/11/18 11:06 [facility] [id number]) Out-Patient Physical Therapy Visit Information Visit Information Visit Type Treatment Note Visit Note Pt reports increased incidents of falls during time away from therapy. Visit Start Time 10:00 Visit Stop Time 10:55 Total Visit Minutes 55 Visit Number 11 Number of FINANCE LEAD Visits 0 Evaluation Information Evaluation Date 09/29/18 Precautions Precautions R JENNIFER PT-OP-B Current Condition Start: 09/19/18 16:41 Freq: Status: Active Protocol: Document 09/29/18 11:15 [facility] (Rec: 09/29/18 12:07 [facility] [id number]) Current Condition History of Current Condition History of Current Condition Pt reports she fell and broke her R hip 1 year ago and had had her hip replaced. Pt reports she is limited in her activity tolerance and has to limit her stops when going shopping. Reports occasionally has pain that goes down R leg and B knee and back pain that limit her. Sometimes her L ankle that also had surgery has pain when stepping down. Reports knees are in terrable condition. Reports pain when leaning against them or when standing up. Reports if she does too much activity her legs get weak and they fall. REports since sciatica her legs have gotten very weak. Pt reports she has been using the cane ever since she had her bout of sciatic after the hip replacement. She thinks sciatica started around May. In the past year, pt reports many many falls. Reports this AM her dog turned over the waste basket, she had to sit down and when she sits down she goes way backwards. Pt reports is also disabled and in unable to help with house activities . Pt reports pt is not supporitive at all and says he is an alcholic. Pt seeing a counselor for depression & home issues. Reports she has been unable to keep up her house d/t back pain and weakness. Pt reports her main issue is leg weakness. Notes sometimes she starts walking and gets going faster and faster and falls. reports tremors in UE and feeling clumsy. Prior Treatments and Tests 2 shots for sciatic and 2nd one helped. Reports therapy last year after hip replacement at [facility] that helped a lot Treatment Goals Patient/Caregiver Goals Pt reports she wants to get more strength. She wants to be able to travel to go visit her dgt in [place]. Improve ability to take care of house PT-OP-C Subjective Start: 09/19/18 16:41 Freq: Status: Active Protocol: Document 12/11/18 10:10 LRN (Rec: 12/11/18 11:06 [facility] [id number]) OP-PT Subjective Patient Comments Patient Comments Reports falling a lot. Fallen several times with last fall 2 days ago. All falls were forward and sometimes with SPC in hand. Fell trying to get up (multiple falls), trying to walk dog & walking into [facility] [address]. Has c/o R hip pain with exercise and later reports it as weakness. States now only sometimes the use of Gabapentin relieves the pain. Too tired to do home ex's due to falls. PT-OP-E Functional Tests Start: 09/19/18 16:41 Freq: Status: Active Protocol: Document 09/29/18 11:15 [facility] (Rec: 09/29/18 12:07 [facility] [id number]) Functional Tests Tinetti Balance and Gait Assessment Balance Score 8 Gait Score 7 Composite Score 15 Composite Score Impairment Rating 40 to <60% Impaired (Score 12- 16) PT-OP-G Mobility & Gait Start: 09/19/18 16:41 Freq: Status: Active Protocol: Document 09/29/18 11:15 [facility] (Rec: 09/29/18 12:07 [facility] [id number]) OP Gait Assessment Comments Gait Comments Pt amb with SPC with good step length but lateral leaning. PT-OP-M Strength Start: 09/19/18 16:41 Freq: Status: Active Protocol: Document 09/29/18 11:15 [facility] (Rec: 09/29/18 12:07 [facility] [id number]) Hip Strength Hip Manual Muscle Testing Right Flexion (L2) 3+ Fair+ Abduction 3+ Fair+ External Rotation 3- Fair- Internal Rotation 4- Good- Left Flexion (L2) 4- Good- Abduction 4 Good External Rotation 4+ Good+ Internal Rotation 4- Good- Knee Strength Knee Manual Muscle Testing Left Flexion (S2) 4+ Good+ Extension (L3) 4 Good Right Flexion (S2) 4+ Good+ Extension (L3) 4 Good Comments pain in back w/flex PT-OP-Q Treatments Start: 09/19/18 16:41 Freq: Status: Active Protocol: Document 12/11/18 10:10 [facility] (Rec: 12/11/18 11:06 [facility] [id number]) Therapeutic Exercises Supine Exercises Hip AB Supine Exercise Name [place]arro Hip AB w/TA Side bilateral Reps/Minutes 15x LE roll in/outs Supine Exercise Name LE Roll in/outs w/TA Side bilateral Reps/Minutes 15x SLR Supine Exercise Name SLR with TA Side left bridge Supine Exercise Name Bridge Reps/Minutes 10x Sidelying Exercises Hip AB Sidelying Exercise Name Hip AB after L innominate correction Side right Reps/Minutes 10x Comments With assist for proper hip AB movement Standing Exercises Ankle DF Standing Exercise Name Ankle DF with support of trunk Side bilateral Equipment Used ISAC, stairs railing Reps/Minutes 30x Gastroc stretch Standing Exercise Name Stretch followed immediately with active ankle DF Side bilateral Equipment Used SIAC Reps/Minutes 2' Manual Therapy Treatment Soft Tissue Mobilization R Gluteal Body Location Scar mob Mobilization Type Sustained Pressure Intensity/Depth Superficial Body Position Sidelying Comments Visual check of RLE showed no bruising. Joint Mobilizations SIJ Joint L SIJ - Contract relax Direction Correction of posteriorly rotated L innominate Body Position Supine Reps/Duration 8' Comments 2x to correct Self-Care/Home Management Treatment Education Patient Education Fall Risk Activities Self-Care/Home Management Activities Discussed with pt at length need for assist with laundry to avoid stair ambulation carrying laundry. I/S pt to obtain walker to use at home in open areas and outside and cont'd use of cane for in home in tight space areas. 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 STG Duration 11/03/18 GOAL MET for carrying laundry up/down stairs Business Transformation Analyst Goal (LTG) Pt will feel strong enough to be able to travel to visit her dgt. LTG Duration 01/23/19 balance Short Term Goal (STG) Pt will have improvement of tinetti to 20/28. STG Duration 12/28/18 Fpc Goal (LTG) Improvement of tinetti to 25/ 28 to show low risk for falls LTG Duration 01/23/19 strength Short Term Goal (STG) Pt will be indep with HEP STG Duration 12/28/18 Fpc Goal (LTG) Pt will have 4+/5 overall LE strength to improve ability to do functional activities at home. LTG Duration 01/23/19 Progress Towards Goals Progress Comments Pt attends today in a worsened state of tolerance to ex due to multiple falls over the past 2 weeks. Assessment Summary Assessment Pt returns after ~2 weeks since last appointment with reports of increase in falls at home and outside the home that is concerning. The pt is resistant to having to use a walker because of reported space limitations in her home. A cane does not appear to provide enough stability for the pt. Her hip did not show signs of bruising but she does have discoloration of the L hand from an apparent bruise. 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 The pt is at risk of falling. Physical Therapy Plan Frequency and Duration Frequency of Treatment 2x/Week Duration of Treatment 2 months Plan of Care Start Date 11/20/18 Plan of Care End Date 01/23/19 Other Referrals/Consults Referrals/Consults Recommended Primary care physician recheck . Next Visit Focus/Plan Next Note Type Treatment Note Next Visit Plan Pt is upset over frequent falls and has poor recall of HEP of hip strengthening ex's (hip AB & [employer]hell). Encourage use of walker for safety with gait. Assess Tinetti & add manual scar mobilization to decreased pain at R hip. Rehab to improve ankle DF mobility and strength , LE's strength, balance/ vestibular exercises & training for proper weight shift. Monitor and treat R LE for Sciatic pain as needed to improve balance and stability .
--- NOTE | 2018-12-16 15:06 | PT.OTN ---
Current Diagnoses Fracture of unspecified part of neck of right femur, initial encounter for closed fracture (12/16/18) Physical Therapy Treatment Note PT-OP-A Visit Information Start: 09/19/18 16:41 Freq: Status: Active Protocol: Document 12/16/18 09:55 [facility] (Rec: 12/16/18 10:36 [facility] [id number]) Out-Patient Physical Therapy Visit Information Visit Information Visit Type Treatment Note Visit Start Time 09:55 Visit Stop Time 10:36 Total Visit Minutes 41 Visit Number 12 Number of SUBWAY CAR REPAIRER Visits 0 Evaluation Information Evaluation Date 09/29/18 Precautions Precautions s/p R JENNIFER due to femoral neck fracture. PT-OP-B Current Condition Start: 09/19/18 16:41 Freq: Status: Active Protocol: Document 09/29/18 11:15 [facility] (Rec: 09/29/18 12:07 [facility] [id number]) Current Condition History of Current Condition History of Current Condition Pt reports she fell and broke her R hip 1 year ago and had had her hip replaced. Pt reports she is limited in her activity tolerance and has to limit her stops when going shopping. Reports occasionally has pain that goes down R leg and B knee and back pain that limit her. Sometimes her L ankle that also had surgery has pain when stepping down. Reports knees are in terrable condition. Reports pain when leaning against them or when standing up. Reports if she does too much activity her legs get weak and they fall. REports since sciatica her legs have gotten very weak. Pt reports she has been using the cane ever since she had her bout of sciatic after the hip replacement. She thinks sciatica started around May. In the past year, pt reports many many falls. Reports this AM her dog turned over the waste basket, she had to sit down and when she sits down she goes way backwards. Pt reports is also disabled and in unable to help with house activities . Pt reports pt is not supporitive at all and says he is an alcholic. Pt seeing a counselor for depression & home issues. Reports she has been unable to keep up her house d/t back pain and weakness. Pt reports her main issue is leg weakness. Notes sometimes she starts walking and gets going faster and faster and falls. reports tremors in UE and feeling clumsy. Prior Treatments and Tests 2 shots for sciatic and 2nd one helped. Reports therapy last year after hip replacement at [facility] that helped a lot Treatment Goals Patient/Caregiver Goals Pt reports she wants to get more strength. She wants to be able to travel to go visit her dgt in [place]. Improve ability to take care of house PT-OP-C Subjective Start: 09/19/18 16:41 Freq: Status: Active Protocol: Document 12/16/18 09:55 [facility] (Rec: 12/16/18 10:36 [facility] [id number]) OP-PT Subjective Patient Comments Patient Comments States after last PT session ran an errand and went home and fell on the way into the house. Is concerned she is not getting any stronger. Hasn't been doing HEP. Visiting [place] are not providing help. PT-OP-E Functional Tests Start: 09/19/18 16:41 Freq: Status: Active Protocol: Document 09/29/18 11:15 [facility] (Rec: 09/29/18 12:07 [facility] [id number]) Functional Tests Tinetti Balance and Gait Assessment Balance Score 8 Gait Score 7 Composite Score 15 Composite Score Impairment Rating 40 to <60% Impaired (Score 12- 16) PT-OP-G Mobility & Gait Start: 09/19/18 16:41 Freq: Status: Active Protocol: Document 09/29/18 11:15 [facility] (Rec: 09/29/18 12:07 [facility] [id number]) OP Gait Assessment Comments Gait Comments Pt amb with SPC with good step length but lateral leaning. PT-OP-M Strength Start: 09/19/18 16:41 Freq: Status: Active Protocol: Document 09/29/18 11:15 [facility] (Rec: 09/29/18 12:07 [facility] [id number]) Hip Strength Hip Manual Muscle Testing Right Flexion (L2) 3+ Fair+ Abduction 3+ Fair+ External Rotation 3- Fair- Internal Rotation 4- Good- Left Flexion (L2) 4- Good- Abduction 4 Good External Rotation 4+ Good+ Internal Rotation 4- Good- Knee Strength Knee Manual Muscle Testing Left Flexion (S2) 4+ Good+ Extension (L3) 4 Good Right Flexion (S2) 4+ Good+ Extension (L3) 4 Good Comments pain in back w/flex PT-OP-Q Treatments Start: 09/19/18 16:41 Freq: Status: Active Protocol: Document 12/16/18 09:55 [facility] (Rec: 12/16/18 10:36 [facility] [id number]) Therapeutic Exercises Sitting Exercises Knee ext/flex Sitting Exercise Name Knee ext/flex Side left Resistance Lev 2 T-/Band Reps/Minutes 20x each Standing Exercises Ankle DF Standing Exercise Name Ankle DF with support of trunk Side bilateral Equipment Used ISAC, stairs railing Reps/Minutes 30x each Comments Pt moves slow with ex,needs rest between sets Knee flex Standing Exercise Name Foot lifts Side bilateral Reps/Minutes 10x3 each Comments Holding onto railing. Pt moves slow with ex Gastroc stretch Standing Exercise Name Stretch followed immediately with active ankle DF Side bilateral Equipment Used ISAC Reps/Minutes 3' Sit to Stand Standing Exercise Name Sit to stand Side bilateral Equipment Used Webbed chair & 21 tall Reps/Minutes 10x, 15x Comments Pt moves slowly Gait Training Gait Activity 1 Description Gait 10'x4 Device Used None Distance/Duration 10'x4 Comments Rests between sets of 20'. TUG of 39 sec's Self-Care/Home Management Treatment Education Other Education Discussed with pt the need for her to exercise at home in order to improve LE strength. Discussed POC and for pt to return to [facility] for recheck. PT-OP-T Assessment and Plan Start: 09/19/18 16:41 Freq: Status: Active Protocol: Document 12/16/18 09:55 [facility] (Rec: 12/16/18 10:36 [facility] [id number]) Physical Therapy Assessment Assessment Summary Assessment Pt reports 1 fall since last visit. She is not being consistent with her HEP and indicates financial difficulty in being able to employ someone to help with her ex's. The pt is resistant to having to use a walker because of reported space limitations in her home. Today, pt's use of cane appears to provide enough stability for gait. Physical Therapy Plan Frequency and Duration Frequency of Treatment 2x/Week Duration of Treatment 2 months Plan of Care Start Date 11/20/18 Plan of Care End Date 01/23/19 Next Visit Focus/Plan Next Note Type Treatment Note Next Visit Plan Start with Biodex for LE strengthening. Assess Tinetti & add manual scar mobilization to decreased pain at R hip. Pt has poor recall of HEP and admits to not doing her home ex's. Rehab to improve ankle DF mobility and strength, LE's strength, balance/vestibular exercises & training for proper weight shift. Monitor and treat R LE for Sciatic pain as needed to improve balance and stability . Pt to go back to [place] for other possible causes of frequent falls.
--- NOTE | 2018-12-18 17:06 | PT.OTN ---
Current Diagnoses Fracture of unspecified part of neck of right femur, initial encounter for closed fracture (12/18/18) Physical Therapy Treatment Note PT-OP-A Visit Information Start: 09/19/18 16:41 Freq: Status: Active Protocol: Document 12/18/18 10:40 [facility] (Rec: 12/18/18 11:16 [facility] [id number]) Out-Patient Physical Therapy Visit Information Visit Information Visit Type Treatment Note Visit Start Time 10:40 Visit Stop Time 11:21 Total Visit Minutes 41 Visit Number 13 Number of UX INFORMATION ARCHITECT Visits 0 Evaluation Information Evaluation Date 09/29/18 Precautions Precautions s/p R JENNIFER due to femoral neck fracture. PT-OP-B Current Condition Start: 09/19/18 16:41 Freq: Status: Active Protocol: Document 09/29/18 11:15 [facility] (Rec: 09/29/18 12:07 [facility] [id number]) Current Condition History of Current Condition History of Current Condition Pt reports she fell and broke her R hip 1 year ago and had had her hip replaced. Pt reports she is limited in her activity tolerance and has to limit her stops when going shopping. Reports occasionally has pain that goes down R leg and B knee and back pain that limit her. Sometimes her L ankle that also had surgery has pain when stepping down. Reports knees are in terrable condition. Reports pain when leaning against them or when standing up. Reports if she does too much activity her legs get weak and they fall. REports since sciatica her legs have gotten very weak. Pt reports she has been using the cane ever since she had her bout of sciatic after the hip replacement. She thinks sciatica started around May. In the past year, pt reports many many falls. Reports this AM her dog turned over the waste basket, she had to sit down and when she sits down she goes way backwards. Pt reports is also disabled and in unable to help with house activities . Pt reports pt is not supporitive at all and says he is an alcholic. Pt seeing a counselor for depression & home issues. Reports she has been unable to keep up her house d/t back pain and weakness. Pt reports her main issue is leg weakness. Notes sometimes she starts walking and gets going faster and faster and falls. reports tremors in UE and feeling clumsy. Prior Treatments and Tests 2 shots for sciatic and 2nd one helped. Reports therapy last year after hip replacement at [facility] that helped a lot Treatment Goals Patient/Caregiver Goals Pt reports she wants to get more strength. She wants to be able to travel to go visit her dgt in [place]. Improve ability to take care of house PT-OP-C Subjective Start: 09/19/18 16:41 Freq: Status: Active Protocol: Document 12/18/18 10:40 LRN (Rec: 12/18/18 11:16 [facility] [id number]) OP-PT Subjective Patient Comments Patient Comments States no falls since last treatment PT-OP-E Functional Tests Start: 09/19/18 16:41 Freq: Status: Active Protocol: Document 12/18/18 10:40 [facility] (Rec: 12/18/18 16:34 [facility] [id number]) Functional Tests Tinetti Balance and Gait Assessment Balance Score 15 Gait Score 10 Composite Score 25 Balance Score Impairment Rating 1 to <20% Impaired (Score 13- 15) Gait Score Impairment Rating 1 to <20% Impaired (Score 10- 11) Composite Score Impairment Rating 1 to <20% Impaired (Score 23- 27) PT-OP-G Mobility & Gait Start: 09/19/18 16:41 Freq: Status: Active Protocol: Document 09/29/18 11:15 LR (Rec: 09/29/18 12:07 [facility] [id number]) OP Gait Assessment Comments Gait Comments Pt amb with SPC with good step length but lateral leaning. PT-OP-M Strength Start: 09/19/18 16:41 Freq: Status: Active Protocol: Document 09/29/18 11:15 [facility] (Rec: 09/29/18 12:07 [facility] [id number]) Hip Strength Hip Manual Muscle Testing Right Flexion (L2) 3+ Fair+ Abduction 3+ Fair+ External Rotation 3- Fair- Internal Rotation 4- Good- Left Flexion (L2) 4- Good- Abduction 4 Good External Rotation 4+ Good+ Internal Rotation 4- Good- Knee Strength Knee Manual Muscle Testing Left Flexion (S2) 4+ Good+ Extension (L3) 4 Good Right Flexion (S2) 4+ Good+ Extension (L3) 4 Good Comments pain in back w/flex PT-OP-Q Treatments Start: 09/19/18 16:41 Freq: Status: Active Protocol: Document 12/18/18 10:40 [facility] (Rec: 12/18/18 11:16 [facility] [id number]) Cardio Equipment Recumbent Elliptical (Biodex) Duration (Minutes) 8 Resistance 1 Seat Position 5 Other keeping at 30rpm or greater Therapeutic Exercises Standing Exercises Ankle DF Standing Exercise Name Ankle DF with support of trunk Side bilateral Equipment Used ISAC, stairs railing Reps/Minutes 10x3 each Comments Pt moves slow with ex,needs rest between sets Knee flex Standing Exercise Name Foot lifts Side bilateral Resistance 1# Equipment Used Parallel bars Reps/Minutes 15x1 each Comments Holding onto parallel bars. Pt moves slow with ex Gastroc stretch Standing Exercise Name Stretch followed immediately with active ankle DF Side bilateral Equipment Used ISAC Reps/Minutes 4' Hip AB strengthening/balance trng Standing Exercise Name Hip AB Side bilateral Resistance Lev 1 T-Band Equipment Used Parallel bars Reps/Minutes 15x2 Sit to Stand Standing Exercise Name Sit to stand Side bilateral Equipment Used Webbed chair & 21 tall Reps/Minutes 10x, 5x Comments Pt moves slowly, Crepitus at the knees limiting ex. 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 STG Duration 11/03/18 GOAL MET for carrying laundry up/down stairs Healthcare Representative Goal (LTG) Pt will feel strong enough to be able to travel to visit her dgt. LTG Duration 01/23/19 balance Short Term Goal (STG) Pt will have improvement of tinetti to 20/28. STG Duration 12/28/18 (12/18/18: GOAL MET, Tinetti score 25) Healthcare Representative Goal (LTG) Improvement of tinetti to 25/ 28 to show low risk for falls LTG Duration 01/23/19 (12/18/18: GOAL MET, Tinetti score 25) strength Short Term Goal (STG) Pt will be indep with HEP STG Duration 12/28/18 Alf Goal (LTG) Pt will have 4+/5 overall LE strength to improve ability to do functional activities at home. LTG Duration 01/23/19 Progress Towards Goals Progress Towards Goals Slow Progress due to Activity Tolerance Slow Progress due to Noncompliance Progress Comments Pt has not fallen since last visit and the pt reports doing her once HEP. Functional Ability: STG: Met. LTG: Very slow Progress Balance: STG & LTG GOAL MET today, although pt reporting fall history. Strength: STG: Slowy Progressing HEP. LTG: Slow Progression. Pt's bilateral knee arthritis & lack of consistency with HEP is hindering progress Assessment Summary Assessment No falls since last visit. Pt more compliant with doing HEP reporting she did do her ex's . The pt comes to therapy using her SPC and appears more stable than previously with no increased sway upon walking . Today Tinetti Score indicates improved stability and indicates she is at a low risk of falling. Pt has made good improvement in the last few days with consistency of therapy and doing her HEP. Physical Therapy Plan Frequency and Duration Frequency of Treatment 2x/Week Duration of Treatment 2 months Plan of Care Start Date 11/20/18 Plan of Care End Date 01/23/19 Next Visit Focus/Plan Next Note Type Treatment Note Next Visit Plan Start with Biodex for LE strengthening. Add manual scar mobilization to decreased pain at R hip. Rehab to improve ankle DF mobility and strength, LE's strength, balance/vestibular exercises & training for proper weight shift. Monitor and treat R LE for Sciatic pain as needed to improve balance and stability . Check if pt scheduled to go back to [place] for other possible causes of frequent falls.
--- NOTE | 2018-12-23 11:08 | PT.OTN ---
Current Diagnoses Fracture of unspecified part of neck of right femur, initial encounter for closed fracture (12/23/18) Physical Therapy Treatment Note PT-OP-A Visit Information Start: 09/19/18 16:41 Freq: Status: Active Protocol: Document 12/23/18 09:49 LRN (Rec: 12/23/18 10:38 LRN [id number]) Out-Patient Physical Therapy Visit Information Visit Information Visit Type Treatment Note Visit Start Time 09:49 Visit Stop Time 10:34 Total Visit Minutes 45 Visit Number 14 Number of WAREDRESSER Visits 0 Evaluation Information Evaluation Date 09/29/18 Precautions Precautions s/p R JENNIFER due to femoral neck fracture. PT-OP-B Current Condition Start: 09/19/18 16:41 Freq: Status: Active Protocol: Document 09/29/18 11:15 [facility] (Rec: 09/29/18 12:07 LR [id number]) Current Condition History of Current Condition History of Current Condition Pt reports she fell and broke her R hip 1 year ago and had had her hip replaced. Pt reports she is limited in her activity tolerance and has to limit her stops when going shopping. Reports occasionally has pain that goes down R leg and B knee and back pain that limit her. Sometimes her L ankle that also had surgery has pain when stepping down. Reports knees are in terrable condition. Reports pain when leaning against them or when standing up. Reports if she does too much activity her legs get weak and they fall. REports since sciatica her legs have gotten very weak. Pt reports she has been using the cane ever since she had her bout of sciatic after the hip replacement. She thinks sciatica started around May. In the past year, pt reports many many falls. Reports this AM her dog turned over the waste basket, she had to sit down and when she sits down she goes way backwards. Pt reports is also disabled and in unable to help with house activities . Pt reports pt is not supporitive at all and says he is an alcholic. Pt seeing a counselor for depression & home issues. Reports she has been unable to keep up her house d/t back pain and weakness. Pt reports her main issue is leg weakness. Notes sometimes she starts walking and gets going faster and faster and falls. reports tremors in UE and feeling clumsy. Prior Treatments and Tests 2 shots for sciatic and 2nd one helped. Reports therapy last year after hip replacement at [facility] that helped a lot Treatment Goals Patient/Caregiver Goals Pt reports she wants to get more strength. She wants to be able to travel to go visit her dgt in [place]. Improve ability to take care of house PT-OP-C Subjective Start: 09/19/18 16:41 Freq: Status: Active Protocol: Document 12/23/18 09:49 LRN (Rec: 12/23/18 10:38 LRN [id number]) OP-PT Subjective Patient Comments Patient Comments Woke with crick in her back. Couldn't walk getting out of bad. Now her low back is tender. States she saw Dr. Miller yesterday and she has arthritis and extuded disc. He is going to give her a MRI of the back and neck. PT-OP-E Functional Tests Start: 09/19/18 16:41 Freq: Status: Active Protocol: Document 12/18/18 10:40 LRN (Rec: 12/18/18 16:34 LRN [id number]) Functional Tests Tinetti Balance and Gait Assessment Balance Score 15 Gait Score 10 Composite Score 25 Balance Score Impairment Rating 1 to <20% Impaired (Score 13- 15) Gait Score Impairment Rating 1 to <20% Impaired (Score 10- 11) Composite Score Impairment Rating 1 to <20% Impaired (Score 23- 27) PT-OP-G Mobility & Gait Start: 09/19/18 16:41 Freq: Status: Active Protocol: Document 09/29/18 11:15 [facility] (Rec: 09/29/18 12:07 [facility] [id number]) OP Gait Assessment Comments Gait Comments Pt amb with SPC with good step length but lateral leaning. PT-OP-M Strength Start: 09/19/18 16:41 Freq: Status: Active Protocol: Document 09/29/18 11:15 [facility] (Rec: 09/29/18 12:07 [facility] [id number]) Hip Strength Hip Manual Muscle Testing Right Flexion (L2) 3+ Fair+ Abduction 3+ Fair+ External Rotation 3- Fair- Internal Rotation 4- Good- Left Flexion (L2) 4- Good- Abduction 4 Good External Rotation 4+ Good+ Internal Rotation 4- Good- Knee Strength Knee Manual Muscle Testing Left Flexion (S2) 4+ Good+ Extension (L3) 4 Good Right Flexion (S2) 4+ Good+ Extension (L3) 4 Good Comments pain in back w/flex PT-OP-Q Treatments Start: 09/19/18 16:41 Freq: Status: Active Protocol: Document 12/23/18 09:49 LRN (Rec: 12/23/18 10:38 LRN [id number]) Cardio Equipment Recumbent Stepper (Sci-Fit) Duration (Minutes) 8 Resistance 2 Seat Position 6 Gym Equipment Shuttle Recovery Bilateral Squats Resistance 37# Shuttle Recovery Platform Stable Reps/Time 15x2 Unilateral Squats Resistance 12 Reps/Time 15x3 each leg, L helping R Therapeutic Exercises Standing Exercises Ankle DF Standing Exercise Name Ankle DF with support of trunk Side bilateral Equipment Used ISAC, stairs railing Reps/Minutes 10x3 each Comments Pt moves slow with ex,needs rest between sets Gastroc stretch Standing Exercise Name Stretch followed immediately with active ankle DF Side bilateral Equipment Used ISAC Reps/Minutes 4' PT-OP-T Assessment and Plan Start: 09/19/18 16:41 Freq: Status: Active Protocol: Document 12/23/18 09:49 LRN (Rec: 12/23/18 10:38 LRN [id number]) Physical Therapy Assessment Assessment Summary Assessment No falls since last visit. Pt is not being consistent with her HEP, doing ex's 1-2 days in the past 4 days because she thought the exs made her more weak and apt to fall. The pt is a little more unsteady today. No palpable pain in the R lateral upper thigh or back, except with R piriformis on the lateral 1/3 region. Scar is tender to moderate to deep mobilization. Tenderness at L5-S1; therefore pain in R hip is probably from low back . Strengthening of RLE is being limited by R sciatic pain and arthritis today. Pt will be having an MRI of neck and back, per pt report of outcome of her appt with Dr Surendra Fuentes. Physical Therapy Plan Frequency and Duration Frequency of Treatment 2x/Week Duration of Treatment 2 months Plan of Care Start Date 11/20/18 Plan of Care End Date 01/23/19 Next Visit Focus/Plan Next Note Type Treatment Note Next Visit Plan Start with Biodex for LE strengthening. Cont manual scar mobilization to decreased pain with R hip ROM. Rehab to improve ankle DF mobility and strength, LE's strength, balance/vestibular exercises & training for proper weight shift. Monitor and treat R LE Sciatic pain as needed to improve balance and stability. Check if pt scheduled to go back to [place] for other possible causes of frequent falls.
--- NOTE | 2018-12-29 16:34 | PT.OTN ---
Current Diagnoses Fracture of unspecified part of neck of right femur, initial encounter for closed fracture (12/29/18) Physical Therapy Treatment Note PT-OP-A Visit Information Start: 09/19/18 16:41 Freq: Status: Active Protocol: Document 12/29/18 10:11 LRN (Rec: 12/29/18 10:35 LRN [id number]) Out-Patient Physical Therapy Visit Information Visit Information Visit Type Treatment Note Visit Start Time 10:11 Visit Stop Time 10:40 Total Visit Minutes 29 Visit Number 15 Number of REVENUE OFFICER Visits 0 Evaluation Information Evaluation Date 09/29/18 Precautions Precautions s/p R JENNIFER due to femoral neck fracture. PT-OP-B Current Condition Start: 09/19/18 16:41 Freq: Status: Active Protocol: Document 09/29/18 11:15 LR (Rec: 09/29/18 12:07 [facility] [id number]) Current Condition History of Current Condition History of Current Condition Pt reports she fell and broke her R hip 1 year ago and had had her hip replaced. Pt reports she is limited in her activity tolerance and has to limit her stops when going shopping. Reports occasionally has pain that goes down R leg and B knee and back pain that limit her. Sometimes her L ankle that also had surgery has pain when stepping down. Reports knees are in terrable condition. Reports pain when leaning against them or when standing up. Reports if she does too much activity her legs get weak and they fall. REports since sciatica her legs have gotten very weak. Pt reports she has been using the cane ever since she had her bout of sciatic after the hip replacement. She thinks sciatica started around May. In the past year, pt reports many many falls. Reports this AM her dog turned over the waste basket, she had to sit down and when she sits down she goes way backwards. Pt reports is also disabled and in unable to help with house activities . Pt reports pt is not supporitive at all and says he is an alcholic. Pt seeing a counselor for depression & home issues. Reports she has been unable to keep up her house d/t back pain and weakness. Pt reports her main issue is leg weakness. Notes sometimes she starts walking and gets going faster and faster and falls. reports tremors in UE and feeling clumsy. Prior Treatments and Tests 2 shots for sciatic and 2nd one helped. Reports therapy last year after hip replacement at [facility] that helped a lot Treatment Goals Patient/Caregiver Goals Pt reports she wants to get more strength. She wants to be able to travel to go visit her dgt in [place]. Improve ability to take care of house PT-OP-C Subjective Start: 09/19/18 16:41 Freq: Status: Active Protocol: Document 12/29/18 10:11 LRN (Rec: 12/29/18 10:35 LRN [id number]) OP-PT Subjective Patient Comments Patient Comments Knees hurt more with home exercise, during and after. States ankle ex's cause knee pain. PT-OP-E Functional Tests Start: 09/19/18 16:41 Freq: Status: Active Protocol: Document 12/18/18 10:40 LRN (Rec: 12/18/18 16:34 LR [id number]) Functional Tests Tinetti Balance and Gait Assessment Balance Score 15 Gait Score 10 Composite Score 25 Balance Score Impairment Rating 1 to <20% Impaired (Score 13- 15) Gait Score Impairment Rating 1 to <20% Impaired (Score 10- 11) Composite Score Impairment Rating 1 to <20% Impaired (Score 23- 27) PT-OP-G Mobility & Gait Start: 09/19/18 16:41 Freq: Status: Active Protocol: Document 09/29/18 11:15 [facility] (Rec: 09/29/18 12:07 [facility] [id number]) OP Gait Assessment Comments Gait Comments Pt amb with SPC with good step length but lateral leaning. PT-OP-M Strength Start: 09/19/18 16:41 Freq: Status: Active Protocol: Document 09/29/18 11:15 [facility] (Rec: 09/29/18 12:07 [facility] [id number]) Hip Strength Hip Manual Muscle Testing Right Flexion (L2) 3+ Fair+ Abduction 3+ Fair+ External Rotation 3- Fair- Internal Rotation 4- Good- Left Flexion (L2) 4- Good- Abduction 4 Good External Rotation 4+ Good+ Internal Rotation 4- Good- Knee Strength Knee Manual Muscle Testing Left Flexion (S2) 4+ Good+ Extension (L3) 4 Good Right Flexion (S2) 4+ Good+ Extension (L3) 4 Good Comments pain in back w/flex PT-OP-Q Treatments Start: 09/19/18 16:41 Freq: Status: Active Protocol: Document 12/29/18 10:11 LRN (Rec: 12/29/18 10:35 LRN [id number]) Cardio Equipment Recumbent Elliptical (BiodTMS) Duration (Minutes) 8 Resistance 1 Seat Position 5 Other keeping at 30rpm or greater Therapeutic Exercises Supine Exercises SLR Supine Exercise Name SLR with TA Side bilateral Reps/Minutes 15 x 1 bridge Supine Exercise Name Bridge Reps/Minutes 15x Sidelying Exercises Hip AB Sidelying Exercise Name Hip AB after L innominate correction Side right Reps/Minutes 10 x 2 Comments With assist for proper hip AB movement Clamshell Side right Reps/Minutes 15 x 2 Comments With assist and cuing for neutral core positioning Standing Exercises Ankle DF Standing Exercise Name Ankle DF with support of trunk Side bilateral Equipment Used stairs railing Reps/Minutes 15x2 Comments Pt moves slow with ex,needs rest between sets Gastroc stretch Standing Exercise Name Stretch followed immediately with active ankle DF Side bilateral Equipment Used ISAC Reps/Minutes 4' Manual Therapy Treatment Nerve Glides LE Nerve Sciatic nerve Details LE nerve glide Body Position Supine Reps/Duration 4' PT-OP-T Assessment and Plan Start: 09/19/18 16:41 Freq: Status: Active Protocol: Document 12/29/18 10:11 LRN (Rec: 12/29/18 10:35 LRN [id number]) Physical Therapy Assessment Goals functional ability Short Term Goal (STG) 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 STG Duration 11/03/18 GOAL MET for carrying laundry up/down stairs Usp Goal (LTG) Pt will feel strong enough to be able to travel to visit her dgt. LTG Duration 01/23/19 balance Short Term Goal (STG) Pt will have improvement of tinetti to 20/28. STG Duration 12/28/18 (12/18/18: GOAL MET, Tinetti score 25) Director Of Outpatient Services Goal (LTG) Improvement of tinetti to 25/ 28 to show low risk for falls LTG Duration 01/23/19 (12/18/18: GOAL MET, Tinetti score 25) strength Short Term Goal (STG) Pt will be indep with HEP STG Duration 12/28/18 Usp Goal (LTG) Pt will have 4+/5 overall LE strength to improve ability to do functional activities at home. LTG Duration 01/23/19 Assessment Summary Assessment No reported falls since last visit. Pt reports being consistent with her HEP resulting in increased bilateral knee pain and popping. Pt appears in emotional distress over her spouse and is a little more unsteady today. Pt is today more easily distracted and moves slowly through ex's, possibly attributed to her emotional state. Limited in time; therefore no Scar tissue mobilization today. Physical Therapy Plan Frequency and Duration Frequency of Treatment 2x/Week Duration of Treatment 2 months Plan of Care Start Date 11/20/18 Plan of Care End Date 01/23/19 Next Visit Focus/Plan Next Note Type Treatment Note Next Visit Plan Try starting Biodex for LE strengthening. Cont manual scar mobilization to decreased pain with R hip ROM. Rehab to improve ankle DF mobility and strength, LE's strengthening, balance/ vestibular exercises & training for weight shifting if needed. Monitor and treat R LE Sciatic pain as needed to improve balance and stability . Check if pt scheduled to go back to [place] for other possible causes of frequent falls.
--- NOTE | 2019-01-01 16:00 | PT.OTN ---
Current Diagnoses Fracture of unspecified part of neck of right femur, initial encounter for closed fracture (01/01/19) Physical Therapy Treatment Note PT-OP-A Visit Information Start: 09/19/18 16:41 Freq: Status: Active Protocol: Document 01/01/19 09:47 LRN (Rec: 01/01/19 10:31 LRN [id number]) Out-Patient Physical Therapy Visit Information Visit Information Visit Type Treatment Note Visit Start Time 09:47 Visit Stop Time 10:32 Total Visit Minutes 45 Visit Number 16 Number of BALLING MACHINE OPERATOR Visits 0 Evaluation Information Evaluation Date 09/29/18 Precautions Precautions s/p R JENNIFER due to femoral neck fracture. PT-OP-B Current Condition Start: 09/19/18 16:41 Freq: Status: Active Protocol: Document 09/29/18 11:15 LR (Rec: 09/29/18 12:07 [facility] [id number]) Current Condition History of Current Condition History of Current Condition Pt reports she fell and broke her R hip 1 year ago and had had her hip replaced. Pt reports she is limited in her activity tolerance and has to limit her stops when going shopping. Reports occasionally has pain that goes down R leg and B knee and back pain that limit her. Sometimes her L ankle that also had surgery has pain when stepping down. Reports knees are in terrable condition. Reports pain when leaning against them or when standing up. Reports if she does too much activity her legs get weak and they fall. REports since sciatica her legs have gotten very weak. Pt reports she has been using the cane ever since she had her bout of sciatic after the hip replacement. She thinks sciatica started around May. In the past year, pt reports many many falls. Reports this AM her dog turned over the waste basket, she had to sit down and when she sits down she goes way backwards. Pt reports is also disabled and in unable to help with house activities . Pt reports pt is not supporitive at all and says he is an alcholic. Pt seeing a counselor for depression & home issues. Reports she has been unable to keep up her house d/t back pain and weakness. Pt reports her main issue is leg weakness. Notes sometimes she starts walking and gets going faster and faster and falls. reports tremors in UE and feeling clumsy. Prior Treatments and Tests 2 shots for sciatic and 2nd one helped. Reports therapy last year after hip replacement at [facility] that helped a lot Treatment Goals Patient/Caregiver Goals Pt reports she wants to get more strength. She wants to be able to travel to go visit her dgt in [place]. Improve ability to take care of house PT-OP-C Subjective Start: 09/19/18 16:41 Freq: Status: Active Protocol: Document 01/01/19 09:47 LRN (Rec: 01/01/19 10:31 LRN [id number]) OP-PT Subjective Patient Comments Patient Comments No falls. Will be seeing the today to discuss results of MRI> PT-OP-E Functional Tests Start: 09/19/18 16:41 Freq: Status: Active Protocol: Document 12/18/18 10:40 LRN (Rec: 12/18/18 16:34 LRN [id number]) Functional Tests Tinetti Balance and Gait Assessment Balance Score 15 Gait Score 10 Composite Score 25 Balance Score Impairment Rating 1 to <20% Impaired (Score 13- 15) Gait Score Impairment Rating 1 to <20% Impaired (Score 10- 11) Composite Score Impairment Rating 1 to <20% Impaired (Score 23- 27) PT-OP-G Mobility & Gait Start: 09/19/18 16:41 Freq: Status: Active Protocol: Document 09/29/18 11:15 [facility] (Rec: 09/29/18 12:07 [facility] [id number]) OP Gait Assessment Comments Gait Comments Pt amb with SPC with good step length but lateral leaning. PT-OP-M Strength Start: 09/19/18 16:41 Freq: Status: Active Protocol: Document 09/29/18 11:15 [facility] (Rec: 09/29/18 12:07 [facility] [id number]) Hip Strength Hip Manual Muscle Testing Right Flexion (L2) 3+ Fair+ Abduction 3+ Fair+ External Rotation 3- Fair- Internal Rotation 4- Good- Left Flexion (L2) 4- Good- Abduction 4 Good External Rotation 4+ Good+ Internal Rotation 4- Good- Knee Strength Knee Manual Muscle Testing Left Flexion (S2) 4+ Good+ Extension (L3) 4 Good Right Flexion (S2) 4+ Good+ Extension (L3) 4 Good Comments pain in back w/flex PT-OP-Q Treatments Start: 09/19/18 16:41 Freq: Status: Active Protocol: Document 01/01/19 09:47 LRN (Rec: 01/01/19 10:31 LRN [id number]) Cardio Equipment Recumbent Elliptical (Biodex) Duration (Minutes) 3 Resistance 1 Seat Position 5 Other keeping at 30rpm or greater Gym Equipment Shuttle Balance Normal stance Details Chain on blue and red Reps/Duration 8' Comments With heel at blue, more ankle DF strengthening. Therapeutic Exercises Supine Exercises Hip AB Supine Exercise Name Navarro Hip AB w/TA Side bilateral Reps/Minutes 15x LE roll in/outs Supine Exercise Name LE Roll in/outs w/TA Side bilateral Reps/Minutes 15x bridge Supine Exercise Name Bridge Reps/Minutes 15x Sidelying Exercises Hip AB Sidelying Exercise Name Hip AB after L innominate correction Side right Reps/Minutes 10 x 2 Comments With assist for proper hip AB movement Clamshell Side right Reps/Minutes 10x3 Comments With assist and cuing for neutral core positioning Standing Exercises Ankle DF Standing Exercise Name Ankle DF with support of trunk Side bilateral Equipment Used stairs railing Reps/Minutes 15x2 Comments Pt moves slow with ex,needs rest between sets Gastroc stretch Standing Exercise Name Stretch followed immediately with active ankle DF Side bilateral Equipment Used ISAC Reps/Minutes 4' Manual Therapy Treatment Joint Mobilizations Lumbar Joint L2-L4 Direction PA Grade II Body Position Sidelying Reps/Duration 3' Comments Oscillations Manual Techniques TrP Type TrP treatment Body Location R posterior hip, R Ilipsoas Body Position Sidelying Reps/Duration 6' Scar mob Type Scar mob Body Location R hip Body Position Sidelying Reps/Duration 9' PT-OP-T Assessment and Plan Start: 09/19/18 16:41 Freq: Status: Active Protocol: Document 01/01/19 09:47 LRN (Rec: 01/01/19 10:31 LRN [id number]) Physical Therapy Assessment Assessment Summary Assessment No falls since last visit. Pt reports being consistent with her HEP resulting in increased bilateral knee pain and popping. Seeing MD for MRI results discussion later today. Pt moves slowly through ex's. Minimal complaints of pain at scar today, active trigger points relieved after manual treatment. Balance shuttle was helpful for ankle strengthening. Physical Therapy Plan Frequency and Duration Frequency of Treatment 2x/Week Duration of Treatment 2 months Plan of Care Start Date 11/20/18 Plan of Care End Date 01/23/19 Next Visit Focus/Plan Next Note Type Treatment Note Next Visit Plan Biodex for LE strengthening if knee tolerate. Manual scar mobilization to decrease pain with R hip ROM. Rehab to improve ankle DF mobility and strength, LE's strengthening, balance/vestibular exercises. Assess LE strength & need of training for weight shifting. Monitor and treat R LE Sciatic pain as needed to improve balance and stability.
--- NOTE | 2019-01-06 11:00 | PT.OTN ---
Current Diagnoses Fracture of unspecified part of neck of right femur, initial encounter for closed fracture (01/06/19) Physical Therapy Treatment Note PT-OP-A Visit Information Start: 09/19/18 16:41 Freq: Status: Active Protocol: Document 01/06/19 09:55 LRN (Rec: 01/06/19 10:38 LRN [id number]) Out-Patient Physical Therapy Visit Information Visit Information Visit Type Treatment Note Visit Start Time 09:55 Visit Stop Time 10:29 Total Visit Minutes 34 Visit Number 17 Number of PUBLIC TRANSPORTATION INSPECTOR Visits 0 Evaluation Information Evaluation Date 09/29/18 Precautions Precautions s/p R JENNIFER due to femoral neck fracture. PT-OP-B Current Condition Start: 09/19/18 16:41 Freq: Status: Active Protocol: Document 09/29/18 11:15 [facility]H (Rec: 09/29/18 12:07 [facility] [id number]) Current Condition History of Current Condition History of Current Condition Pt reports she fell and broke her R hip 1 year ago and had had her hip replaced. Pt reports she is limited in her activity tolerance and has to limit her stops when going shopping. Reports occasionally has pain that goes down R leg and B knee and back pain that limit her. Sometimes her L ankle that also had surgery has pain when stepping down. Reports knees are in terrable condition. Reports pain when leaning against them or when standing up. Reports if she does too much activity her legs get weak and they fall. REports since sciatica her legs have gotten very weak. Pt reports she has been using the cane ever since she had her bout of sciatic after the hip replacement. She thinks sciatica started around May. In the past year, pt reports many many falls. Reports this AM her dog turned over the waste basket, she had to sit down and when she sits down she goes way backwards. Pt reports is also disabled and in unable to help with house activities . Pt reports pt is not supporitive at all and says he is an alcholic. Pt seeing a counselor for depression & home issues. Reports she has been unable to keep up her house d/t back pain and weakness. Pt reports her main issue is leg weakness. Notes sometimes she starts walking and gets going faster and faster and falls. reports tremors in UE and feeling clumsy. Prior Treatments and Tests 2 shots for sciatic and 2nd one helped. Reports therapy last year after hip replacement at [facility] that helped a lot Treatment Goals Patient/Caregiver Goals Pt reports she wants to get more strength. She wants to be able to travel to go visit her dgt in [place]. Improve ability to take care of house PT-OP-C Subjective Start: 09/19/18 16:41 Freq: Status: Active Protocol: Document 01/06/19 09:55 LRN (Rec: 01/06/19 10:38 LRN [id number]) OP-PT Subjective Patient Comments Patient Comments States she has had a crick in her back since 2 days after the last appt. Pt also saw the Dr. Quezada after the last PT session and was told they would try an injection in the back next back. No falls since last seen. PT-OP-E Functional Tests Start: 09/19/18 16:41 Freq: Status: Active Protocol: Document 12/18/18 10:40 LRN (Rec: 12/18/18 16:34 LRN [id number]) Functional Tests Tinetti Balance and Gait Assessment Balance Score 15 Gait Score 10 Composite Score 25 Balance Score Impairment Rating 1 to <20% Impaired (Score 13- 15) Gait Score Impairment Rating 1 to <20% Impaired (Score 10- 11) Composite Score Impairment Rating 1 to <20% Impaired (Score 23- 27) PT-OP-G Mobility & Gait Start: 09/19/18 16:41 Freq: Status: Active Protocol: Document 09/29/18 11:15 LR (Rec: 09/29/18 12:07 [facility] [id number]) OP Gait Assessment Comments Gait Comments Pt amb with SPC with good step length but lateral leaning. PT-OP-M Strength Start: 09/19/18 16:41 Freq: Status: Active Protocol: Document 09/29/18 11:15 LR (Rec: 09/29/18 12:07 [facility] [id number]) Hip Strength Hip Manual Muscle Testing Right Flexion (L2) 3+ Fair+ Abduction 3+ Fair+ External Rotation 3- Fair- Internal Rotation 4- Good- Left Flexion (L2) 4- Good- Abduction 4 Good External Rotation 4+ Good+ Internal Rotation 4- Good- Knee Strength Knee Manual Muscle Testing Left Flexion (S2) 4+ Good+ Extension (L3) 4 Good Right Flexion (S2) 4+ Good+ Extension (L3) 4 Good Comments pain in back w/flex PT-OP-Q Treatments Start: 09/19/18 16:41 Freq: Status: Active Protocol: Document 01/06/19 09:55 LRN (Rec: 01/06/19 10:38 LRN [id number]) Manual Therapy Treatment Soft Tissue Mobilization Low Back Body Location Navarro lumbar paraspinals Mobilization Type Strumming Sustained Pressure Intensity/Depth Moderate Body Position Prone R Gluteal Body Location Upper Gluteals Mobilization Type Strumming Sustained Pressure Intensity/Depth Moderate Body Position Prone Joint Mobilizations SIJ Joint Sacrum Direction Correction of R rotated sacrum Grade II Body Position Prone Reps/Duration 3' Comments 2x to correct Lumbar Joint L2-L4 Direction L rot, & PA of L2 Grade II Body Position Prone Reps/Duration 8' Comments Oscillations Self-Care/Home Management Treatment Education Patient Education Body Mechanics Pain Management Other Education I/S pt in use of cryotherapy for pain management, body mechanics for avoiding rotation and prolonged sitting . Training for log roll transfer off plinth. PT-OP-T Assessment and Plan Start: 09/19/18 16:41 Freq: Status: Active Protocol: Document 01/06/19 09:55 LRN (Rec: 01/06/19 10:38 LRN [id number]) Physical Therapy Assessment Goals functional ability Short Term Goal (STG) Pt will be able to do small cooler tender for short durations. STG Duration 11/03/18 GOAL MET for carrying laundry up/down stairs Mcc Goal (LTG) Pt will feel strong enough to be able to travel to visit her dgt. LTG Duration 01/23/19 balance Short Term Goal (STG) Pt will have improvement of tinetti to 20/28. STG Duration 12/28/18 (12/18/18: GOAL MET, Tinetti score 25) Mcc Goal (LTG) Improvement of tinetti to 25/ 28 to show low risk for falls LTG Duration 01/23/19 (12/18/18: GOAL MET, Tinetti score 25) strength Short Term Goal (STG) Pt will be indep with HEP STG Duration 12/28/18 Swimming Pool Servicer Goal (LTG) Pt will have 4+/5 overall LE strength to improve ability to do functional activities at home. LTG Duration 01/23/19 Progress Towards Goals Progress Comments No changes today due to limited tolerance with therapy . Assessment Summary Assessment Pt not able to tolerate a full session of PT due to pain behavior with walking and movement of trunk rotation. During her walk out of the treatment room the pt noted a click in her back and appeared to move more fluid like without as much of the jumping pain behavior with movement. Pt may have had a stuck facet joint with the lumbar and sacrum stuck in R rotation. Postioning of lumbar spine and sacrum was improved after manual therapy. No change with goals today due to limited tolerance to PT . Physical Therapy Plan Frequency and Duration Frequency of Treatment 2x/Week Duration of Treatment 2 months Plan of Care Start Date 11/20/18 Plan of Care End Date 01/23/19 Next Visit Focus/Plan Next Note Type Treatment Note Next Visit Plan Discuss cont of therapy and visits, POC expires in ~2 weeks. Assess LE strength & need of training for weight shifting. Rehab to improve ankle DF mobility and strength , LE's strengthening, balance/ vestibular exercises. Monitor and treat R LE Sciatic pain as needed to improve balance and stability.
--- NOTE | 2019-01-08 15:23 | PT.OTN ---
Current Diagnoses Fracture of unspecified part of neck of right femur, initial encounter for closed fracture (01/08/19) Physical Therapy Treatment Note PT-OP-A Visit Information Start: 09/19/18 16:41 Freq: Status: Active Protocol: Document 01/08/19 09:45 LRN (Rec: 01/08/19 15:15 LRN [id number]) Out-Patient Physical Therapy Visit Information Visit Information Visit Type Treatment Note Visit Start Time 09:45 Visit Stop Time 10:30 Total Visit Minutes 45 Visit Number 18 Number of DIP FILLER Visits 0 Evaluation Information Evaluation Date 09/29/18 Precautions Precautions s/p R JENNIFER due to femoral neck fracture. PT-OP-B Current Condition Start: 09/19/18 16:41 Freq: Status: Active Protocol: Document 09/29/18 11:15 [facility] (Rec: 09/29/18 12:07 [facility] [id number]) Current Condition History of Current Condition History of Current Condition Pt reports she fell and broke her R hip 1 year ago and had had her hip replaced. Pt reports she is limited in her activity tolerance and has to limit her stops when going shopping. Reports occasionally has pain that goes down R leg and B knee and back pain that limit her. Sometimes her L ankle that also had surgery has pain when stepping down. Reports knees are in terrable condition. Reports pain when leaning against them or when standing up. Reports if she does too much activity her legs get weak and they fall. REports since sciatica her legs have gotten very weak. Pt reports she has been using the cane ever since she had her bout of sciatic after the hip replacement. She thinks sciatica started around May. In the past year, pt reports many many falls. Reports this AM her dog turned over the waste basket, she had to sit down and when she sits down she goes way backwards. Pt reports is also disabled and in unable to help with house activities . Pt reports pt is not supporitive at all and says he is an alcholic. Pt seeing a counselor for depression & home issues. Reports she has been unable to keep up her house d/t back pain and weakness. Pt reports her main issue is leg weakness. Notes sometimes she starts walking and gets going faster and faster and falls. reports tremors in UE and feeling clumsy. Prior Treatments and Tests 2 shots for sciatic and 2nd one helped. Reports therapy last year after hip replacement at [facility] that helped a lot Treatment Goals Patient/Caregiver Goals Pt reports she wants to get more strength. She wants to be able to travel to go visit her dgt in [place]. Improve ability to take care of house PT-OP-C Subjective Start: 09/19/18 16:41 Freq: Status: Active Protocol: Document 01/08/19 09:45 LRN (Rec: 01/08/19 15:15 LRN [id number]) OP-PT Subjective Patient Comments Patient Comments Pt reports ongoing back pain making her unsteady. Needing to use cane for safety. Having an injection on same day of next PT appt, I was told not to do much 1-2 days after the injection. States she will go visit her daughter at end of April. Patient Reported Progress Worse PT-OP-E Functional Tests Start: 09/19/18 16:41 Freq: Status: Active Protocol: Document 12/18/18 10:40 LRN (Rec: 12/18/18 16:34 LRN [id number]) Functional Tests Tinetti Balance and Gait Assessment Balance Score 15 Gait Score 10 Composite Score 25 Balance Score Impairment Rating 1 to <20% Impaired (Score 13- 15) Gait Score Impairment Rating 1 to <20% Impaired (Score 10- 11) Composite Score Impairment Rating 1 to <20% Impaired (Score 23- 27) PT-OP-G Mobility & Gait Start: 09/19/18 16:41 Freq: Status: Active Protocol: Document 09/29/18 11:15 LR (Rec: 09/29/18 12:07 [facility] [id number]) OP Gait Assessment Comments Gait Comments Pt amb with SPC with good step length but lateral leaning. PT-OP-M Strength Start: 09/19/18 16:41 Freq: Status: Active Protocol: Document 01/08/19 09:45 LRN (Rec: 01/08/19 15:15 LRN [id number]) Ankle/Foot Strength Ankle and Foot Manual Muscle Testing Right Plantarflexion (S1) 3 Fair Comments Generally 5/5 except PF above. Toe Strength Toe Manual Muscle Testing Right Great Toe Flexion 3 Fair PT-OP-Q Treatments Start: 09/19/18 16:41 Freq: Status: Active Protocol: Document 01/08/19 09:45 LRN (Rec: 01/08/19 15:15 LRN [id number]) Therapeutic Exercises Sitting Exercises Ankle EV Sitting Exercise Name Ankle EV with heel on floor Side bilateral Resistance Lev 2 T-Band Reps/Minutes 10x Comments Extra time taken to keep pt on task and correctly doing ex. Ankle PF Sitting Exercise Name Ankle PF with heel on floor Side right Resistance Lev 2 T-Band Reps/Minutes 15x Comments Extra time taken to keep pt on task and correctly doing ex. Standing Exercises Gastroc stretch Standing Exercise Name Stretch followed immediately with active ankle DF Side bilateral Reps/Minutes 4' Therapeutic Activity Therapeutic Activity Transfer training Name Supine to sit from L side & sit<>stand Reps/Minutes 2x Comments Pt needed verbal and physical cuing for core stabilization. Manual Therapy Treatment Soft Tissue Mobilization Low Back Body Location R lumbar paraspinals & QL Mobilization Type Strumming Sustained Pressure Intensity/Depth Moderate Body Position Prone R Gluteal Body Location Upper Gluteals Mobilization Type Strumming Sustained Pressure Intensity/Depth Moderate Body Position Prone Joint Mobilizations SIJ Joint Sacrum Direction Correction of R rotated sacrum Grade II Body Position Prone Reps/Duration 3' Comments 2x to correct Lumbar Joint L3-L4 Direction L rot, & PA of L2 Grade II Body Position Prone Reps/Duration 5' Comments Oscillations Manual Traction Lumbar Details Traction at Pelvis Body Position Supine Comments 3' Manual Techniques TrP Type TrP treatment Body Location R posterior hip Body Position Sidelying Reps/Duration 6' PT-OP-T Assessment and Plan Start: 09/19/18 16:41 Freq: Status: Active Protocol: Document 01/08/19 09:45 LRN (Rec: 01/08/19 15:15 LRN [id number]) Physical Therapy Assessment Progress Towards Goals Progress Towards Goals Slow Progress due to Medical Issues Assessment Summary Assessment Pt has weakness of R ankle PF (S1) & R Big toe ext (L5). Pt R thigh pain decreased with therapy and her back pain decreased to 4/10 making her gait appear more stable although a SPC was needed for pt to feel safe walking. Pt back pain is hindering her ability to progress. Postioning of lumbar spine and sacrum was improved after manual therapy with a decrease in back pain complaints. No change with progress of goals today due to pt's limited ability for balance ex's. Pt agreeable to hold therapy if back is not helped by injections. Pt is planning on visiting her daughter at end of April. Physical Therapy Plan Frequency and Duration Frequency of Treatment 2x/Week Duration of Treatment 2 months Plan of Care Start Date 11/20/18 Plan of Care End Date 01/23/19 Next Visit Focus/Plan Next Note Type Treatment Note Next Visit Plan POC expires in ~2 weeks. Assess need of training for weight shifting if pt returns after (lumbar?) injection. Rehab to improve ankle DF mobility and R ankle strength (focus on PF), balance/ vestibular exercises, general LE strengthening. Monitor and treat R LE Sciatic pain as needed to improve balance and stability.
--- NOTE | 2019-03-22 15:59 | PT.OPDS ---
Current Diagnoses Fracture of unspecified part of neck of right femur, initial encounter for closed fracture (01/08/19) Provider Visit Care Team Role Provider Type Henok Yanes DO Family Provider Physician Specialty: Psychiatry Address: [address] [place], [address] Email: [email or web address] Nain Tran MD Attending Provider Physician Primary Care Provider Specialty: Internal Medicine Address: [facility] [address] [place] [address] [place], [place], [address] Email: Visit Number Visit Number [id number] Discharge Summary PT-OP-B Current Condition Start: 09/19/18 16:41 Freq: Status: Active Protocol: Document 09/29/18 11:15 [facility] (Rec: 09/29/18 12:07 [facility] [id number]) Current Condition History of Current Condition History of Current Condition Pt reports she fell and broke her R hip 1 year ago and had had her hip replaced. Pt reports she is limited in her activity tolerance and has to limit her stops when going shopping. Reports occasionally has pain that goes down R leg and B knee and back pain that limit her. Sometimes her L ankle that also had surgery has pain when stepping down. Reports knees are in terrable condition. Reports pain when leaning against them or when standing up. Reports if she does too much activity her legs get weak and they fall. REports since sciatica her legs have gotten very weak. Pt reports she has been using the cane ever since she had her bout of sciatic after the hip replacement. She thinks sciatica started around May. In the past year, pt reports many many falls. Reports this AM her dog turned over the waste basket, she had to sit down and when she sits down she goes way backwards. Pt reports is also disabled and in unable to help with house activities . Pt reports pt is not supporitive at all and says he is an alcholic. Pt seeing a counselor for depression & home issues. Reports she has been unable to keep up her house d/t back pain and weakness. Pt reports her main issue is leg weakness. Notes sometimes she starts walking and gets going faster and faster and falls. reports tremors in UE and feeling clumsy. Prior Treatments and Tests 2 shots for sciatic and 2nd one helped. Reports therapy last year after hip replacement at [facility] that helped a lot Treatment Goals Patient/Caregiver Goals Pt reports she wants to get more strength. She wants to be able to travel to go visit her dgt in [place]. Improve ability to take care of house PT-OP-T Assessment and Plan Start: 09/19/18 16:41 Freq: Status: Active Protocol: Document 03/22/19 15:54 [facility] (Rec: 03/22/19 15:59 [facility] [id number]) Physical Therapy Assessment Goals functional ability Short Term Goal (STG) Pt will be able to do small rehab aid for short durations. STG Duration 11/03/18 GOAL MET for carrying laundry up/down stairs Care Home Goal (LTG) Pt will feel strong enough to be able to travel to visit her dgt. LTG Duration 01/23/19 balance Short Term Goal (STG) Pt will have improvement of tinetti to 20/28. STG Duration 12/28/18 (12/18/18: GOAL MET, Tinetti score 25) Industrial Servicer Goal (LTG) Improvement of tinetti to 25/ 28 to show low risk for falls LTG Duration 01/23/19 (12/18/18: GOAL MET, Tinetti score 25) strength Short Term Goal (STG) Pt will be indep with HEP STG Duration 12/28/18 Care Home Goal (LTG) Pt will have 4+/5 overall LE strength to improve ability to do functional activities at home. LTG Duration 01/23/19 Progress Towards Goals Progress Towards Goals Slow Progress due to Medical Issues Physical Therapy Plan Discharge Physical Therapy Discharge Reasons Change in Medical Status Discharge Comments Pt was last seen in physical therapy 01/08/19. Records indicate her undergoing lumbar surgery 02/24/19 for L34, L45 laminectomy and discectomy.
== END 2019-04-02 09:24 | disposition home or self-care (01) ==
LOC: PHYS 09:45
PROVIDERS: Family Provider Psychiatry & Neurology Psychiatry; PCP Student in an Organized Health Care Education/Training Program; Visit Provider Student in an Organized Health Care Education/Training Program
DX: S72.001A Fracture of unspecified part of neck of right femur, initial encounter for closed fracture (principal)
CPT/HCPCS: 97110; 97112; 97140; 97162; 97535

== ENCOUNTER 2019-01-13 14:54 | Outpatient (CLI) | payer MEDICARE, SELFPAY ==
[2019-01-13] VITALS (8 sets, daily range): BP systolic 119–141; BP diastolic 41–91; PULSE 59–66; RESP 16–18; TEMP 36.2; O2SAT 93–96
--- NOTE | 2019-01-13 15:00 | DI.RAD.S_ITS ---
PROCEDURE: PAIN L INTERLAMINAR/CAUDAL INJ INDICATIONS: SPINAL STENOSIS FINDINGS: Fluoroscopic spot filming was performed to verify placement of spinal needles at the L3-L4 level(s), as labeled on the films. Appropriate location(s) of the needle tip(s) was confirmed by injection of iodinated contrast. Dictated by: Harshal Tong M.D. on 01/14/2019 at 9:59 Approved by: Harshal Tong M.D. on 01/14/2019 at 10:00
[2019-01-13] MEDS: MIDAZOLAM 5 MG/5 ML VIAL IV (15:44)
[2019-01-13] MEDS: BETAMETHASONE 30 MG/5 ML MDV 6 MG INJ (15:53)
[2019-01-13] MEDS: BUPIVACAINE 0.25% (PF) VIAL 2 ML INJ (15:53)
[2019-01-13] MEDS: IOPAMIDOL 15 ML VIAL 3 ML INJ (15:53)
[2019-01-13] MEDS: DEXAMETHASONE 10 MG/ML VIAL 20 MG INJ (15:54)
--- NOTE | 2019-01-13 15:57 | PC.NURSE ---
pt tolerated procedure well. Able to get off table with standby assist. Transferred to pre procedure room via wheelchair for continued monitoring with Diana GARZA.
--- NOTE | 2019-01-13 16:03 | P.PCN_ITS ---
Procedures Date/Time Date of procedure: 01/13/19 Time of procedure: 16:01 General Procedure description: POST OP DIAGNOSIS 1. HNP WITH RADICULAR FEATURES, 2. MULTILEVEL CENTRAL STENOSIS, PROCEDURES 1. FLUORSCOPICALLY GUIDED CONTRAST CONTROLLED INTERLAMINAR EPIDURAL STEROID INJECTION - L3/4 PHYSICIAN: Ranjit Quezada, DO INDICATIONS Criss is referred by Dr. Tran for treatment of HNP with Right LE symptoms. FINDINGS Multilevel Central Spinal Stenosis with Nerve Root Compression DESCRIPTION OF PROCEDURE Fluoroscopically guided, contrast-controlled L3/4 translaminar epidural steroid injection. Following denial of allergy and review of potential side effects and complications, including, but not necessarily limited to, infection, allergic reaction, local tissue breakdown, temporary as well as permanent nerve injury, paralysis, stroke and possible , the patient indicated that the patient understood and agreed to proceed. An informed consent document was signed by the patient, witnessed by a nurse, and placed in the patient's chart. Additionally, other treatment options including modalities, medications, and physical therapy were reviewed with the patient. After review of previous anaesthesic history and IV conscious sedation the patient was deemed safe to proceed with todays procedure with IV conscious sedation as ASA class II designation. Safety time-out was performed to confirm patient ID, procedure to be performed and site of procedure. IV sedation was accomplished with 2mg of Versed was administered by the RN after DO order, titrated to patient comfort during the course of the procedure while the patient remained responsive to all verbal commands. In the prone position, following sterile prep and drape of the lumbar region, the L3/4 translaminar space was identified fluoroscopically. The skin was anesthetized via a 25-gauge, 1.5-inch needle with 1% lidocaine solution. At this point, a 22-gauge short bevel spinal needle was atraumatically introduced and advanced under fluoroscopic guidance into the region of the L3/4 translaminar space. Depth was confirmed on lateral view. Radiological data, including multiple fluoroscopic views of the lumbar spine, reveal a spinal needle at the L3/4 translaminar space. Lateral views then show placement of the needle in the epidural space. Subsequent views show contrast material flowing superiorly and inferiorly in the epidural space. No vascular or intrathecal uptake is observed. At this point, using loss of resistance technique with saline and air, the epidural space was entered. This was confirmed following negative aspiration with injection of approximately 1.5 cc of Isovue 200, showing excellent epidural flow without vascular or intrathecal uptake. At this point, 1 cc of 1% lidocaine solution combined with 2cc or 20mg of dexamethasone was injected without incident. The patient tolerated the procedure well without signs or symptoms of complications prior to transfer to the recovery area continued monitoring withou t incident. The patient was then transferred to the recovery area where they were observed for an appropriate period of time after the injection. The patient reported a VAS score of 6 prior to the procedure and a post- procedure VAS of 0. Total Fluoroscopy Time: 11.8 seconds Total Conscious Sedation Time: 24min POST OP INSTRUCTIONS The patient was provided a Pain Log to continue to record their response to the target-specific procedure prior to follow-up visit with their referring physician. Additionally, specific post-injection care instructions and a contact number to our office were provided if concerns arise regarding possible complications associated with the procedure are suspected. Ranjit Quezada, Complications: none
--- NOTE | 2019-01-13 16:07 | PC.NURSE ---
ACCEPTED CARE OF PT IN POST PROC AREA IN STABLE CONDITION
== END 2019-01-13 16:31 | disposition home or self-care (01) ==
LOC: RAD 14:59
PROVIDERS: Family Provider Psychiatry & Neurology Psychiatry; PCP Student in an Organized Health Care Education/Training Program; Visit Provider Physical Medicine & Rehabilitation
DX: M51.16 Intervertebral disc disorders with radiculopathy, lumbar region (principal); M48.061 Spinal stenosis, lumbar region without neurogenic claudication
CPT/HCPCS: 62323; 99152; J0702; J1100; J2250; J3010

== ENCOUNTER → 2019-02-10 16:16 | Outpatient (CLI) | payer MEDICARE, SELFPAY ==
[2019-02-10 17:38] LABS: Add Manual Diff / Slide Review NO; Basophils Absolute Auto 100 /uL (0-100); Basophils Percent Auto 0.9 % (0-2); Eosinophils Absolute Auto 200 /uL (0-450); Hematocrit 41.9 % (36-46); Hemoglobin 14.1 g/dL (12.0-16.0); Lymphocytes Absolute Auto 900 /uL (1100-4500); Lymphocytes Percent Auto 14.4 % (25-40); Mean Corpuscular HGB Conc 33.6 % (30-36); Mean Corpuscular Hemoglobin 32.9 PG (26-34); Mean Corpuscular Volume 97.9 fL (80-100); Monocytes Absolute Auto 500 /uL (0-900); Monocytes Percent Auto 7.8 % (3-14); Neutrophils Absolute Auto 4400 /uL (1500-7000); Neutrophils Percent Auto 72.9 % (50-75); Platelet Count 261 X10^3/uL (150-400); Red Blood Cell Count 4.28 X10^6/uL (4.0-5.2); Red Cell Distribution Width 13.4 % (11.6-14.8); White Blood Cell Count 6.1 X10^3/uL (4.5-11.0)
[2019-02-10 18:02] LABS: BUN Creatinine Ratio 15.6 (6-22); Blood Urea Nitrogen 14 mg/dL (7-17); Calcium 10.3 mg/dL (8.4-10.2); Carbon Dioxide 28 mmol/L (22-32); Chloride 99 mmol/L (98-107); Estimated Glomerular Filt Rate > 60.0 mL/min (>60); Glucose 82 mg/dL (80-110); HEMOLYSIS < 15 (0-50); Potassium 4.6 mmol/L (3.4-5.1); Sodium 135 mmol/L (137-145)
== END ==
PROVIDERS: Family Provider Psychiatry & Neurology Psychiatry; PCP Student in an Organized Health Care Education/Training Program; Visit Provider Student in an Organized Health Care Education/Training Program
DX: Z01.810 Encounter for preprocedural cardiovascular examination (principal)
CPT/HCPCS: 80048; 85025

== ENCOUNTER 2019-02-11 07:54 | Emergency (ER) | payer MEDICARE, SELFPAY ==
[2019-02-11 07:51] VITALS: BP 168/66; PULSE 60; RESP 16; TEMP 36.7; O2SAT 94; BMI 23.0
--- NOTE | 2019-02-11 08:06 | ED_ITS ---
HPI - Back Pain/Injury General Chief Complaint: Extremity Injury, Lower Stated Complaint: Right leg pain Time Seen by Provider: 02/11/19 07:57 Source: patient and EMS Mode of arrival: EMS Limitations: no limitations History of Present Illness HPI Narrative: Patient comes emergency department via EMS, complaining of right lower extremity and lower back pain. Patient has been dealing with this chronically and states that she has actually seen spinal specialist, who is planning to do surgery. She states she has been told she has a ?pinched nerve? in her back. Patient states that the pain is of the same quality as usual, and that nothing is different this time except that pain is more intense. Patient states that when she tried to walk, it hurt too bad to keep going. Patient states that she has not had any recent injuries. She denies any loss of bowel or bladder control. She states that she has not had any abdominal pain, fever, vomiting, or dysuria. No blood in her urine. Patient denies any numbness or tingling in her foot currently, though she occasionally does have this. No other complaints at this time. Related Data Previous Rx's Medication Instructions Recorded alendronate 70 mg tablet 70 mg PO QWEEK #4 tab 08/06/18 buspirone 15 mg tablet 15 mg PO DAILY #30 tab 08/15/18 cyclobenzaprine 10 mg tablet 10 mg PO BID #60 tab 08/15/18 docusate sodium 250 mg capsule 250 mg PO DAILY #30 cap 08/15/18 hydroxyzine pamoate 50 mg capsule 50 mg PO BEDTIME PRN #30 cap 08/15/18 trazodone 50 mg tablet 50 mg PO BEDTIME #30 tab 08/15/18 propranolol 60 mg tablet 60 mg PO BID #60 tab 12/05/18 tramadol 50 mg tablet 50 mg PO Q8H PRN #60 tab 01/16/19 bupropion HCl SR 200 mg tablet,12 200 mg PO Q DAY #90 tab 01/29/19 hr sustained-release sennosides 8.6 mg tablet 17.2 mg PO HS #180 tab 01/29/19 sertraline 100 mg tablet 200 mg PO QAM #180 tab 01/29/19 simvastatin 20 mg tablet 20 mg PO HS #90 tab 01/29/19 gabapentin 800 mg tablet 800 mg PO Q6H #120 tab 01/30/19 oxycodone-acetaminophen [Percocet] 1 tab PO Q4-6H PRN #20 tab 02/11/19 Allergies Allergy/AdvReac Type Severity Reaction Status Date / Time diphenhydramine Allergy Severe Big welts Verified 02/11/19 08:08 throughout my body Sulfa (Sulfonamide Allergy Intermediate HIVES Verified 02/11/19 08:08 Antibiotics) Review of Systems Constitutional Denies chills, Denies fever(s), Denies lethargy and Denies weakness Eyes Denies change in vision, Denies eye discharge, Denies irritation and Denies loss of vision ENT Ears, Nose, Mouth, and Throat: Denies change in voice, Denies neck pain and Denies sore throat Cardiovascular Denies chest pain, Denies irregular heart rhythm, Denies lightheadedness, Denies palpitations, Denies dyspnea, Denies dyspnea on exertion and Denies orthopnea Respiratory Denies cough, Denies dyspnea, Denies dyspnea on exertion and Denies wheezing Gastrointestinal Gastrointestinal: Denies abdominal pain, Denies change in bowel habits, Denies diarrhea, Denies nausea and Denies vomiting Genitourinary Denies hematuria, Denies flank pain, Denies urinary incontinence and Denies urinary urgency Musculoskeletal Denies neck pain Comments: Back and right leg pain Integumentary/Breasts Denies pruritus, Denies erythema, Denies rash and Denies wounds Neurologic Denies confusion, Denies loss of vision and Denies weakness Psychiatric Denies anxiety, Denies confusion, Denies depression, Denies homicidal ideation and Denies suicidal ideation Endocrine Denies palpitations Hematologic/Lymphatic Denies easy bruising Allergic/Immunologic Denies wheezing [facility] Medical History Anxiety (Chronic) Depression (Chronic) Hyperlipidemia (Chronic) Hypertension (Chronic) Lumbar spinal stenosis (Chronic) Lumbosacral radiculopathy (Chronic) Ductal carcinoma in situ (DCIS) of right breast (Resolved 2012) Surgical History History of ankle surgery (Resolved 2009) History of bilateral mastectomy (Resolved 03/04/13) History of breast augmentation (Resolved 09/2013) History of orthopedic surgery (Resolved 2007) History of removal of cyst (Resolved 1963) History of right hip hemiarthroplasty (Resolved 09/12/17) History of tonsillectomy (Resolved) Status post appendectomy (Resolved) Status post epidural steroid injection (Resolved 07/10/18) Status post total abdominal hysterectomy and bilateral salpingo-oophorectomy (MARTIN-BSO) (Resolved 1962) Family History Brother [place] (myocardial infarction) Father NH (myocardial infarction) Mother Heart disease Sister Maternal complication related to childbirth Sister [place] (myocardial infarction) MVA (motor vehicle accident) Family/Other MS (multiple sclerosis) Social History Smoking Status: Current every day smoker Tobacco: How many years used: 15 quit status: not considering quitting second hand exposure: No alcohol intake: never substance use type: does not use Family History Brother [place] (myocardial infarction) Father [place] (myocardial infarction) Mother Heart disease Sister Maternal complication related to childbirth Sister [place] (myocardial infarction) MVA (motor vehicle accident) Family/Other MS (multiple sclerosis) Social History Smoking Status: Current every day smoker Tobacco: How many years used: 15 quit status: not considering quitting second hand exposure: No alcohol intake: never substance use type: does not use Exam Initial Vital Signs Initial Vital Signs: Vital Signs Temperature 98.1 F 02/11/19 07:51 Pulse Rate 60 02/11/19 07:51 Respiratory Rate 16 02/11/19 07:51 Blood Pressure 168/66 H 02/11/19 07:51 Pulse Oximetry 94 02/11/19 07:51 Const General: cooperative and well developed Nutritional Appearance: well nourished Orientation: alert, awake, oriented x3 and not confused [facility] Head: normocephalic and atraumatic Ears: external ears normal Nose: external nose normal and No nasal discharge Face and sinus: face symmetric and No dry mucous membranes Mouth: oral mucosae normal and moist mucous membranes Teeth and gingiva: dentition normal Eyes General: appearance normal, both eyes and all related structures Eyelids: eyelids normal Conjunctivae: conjunctivae normal Sclera: sclerae normal Pupils: PERRL EOM: EOM intact bilaterally Neck Neck: normal visual inspection, trachea midline, No lymphadenopathy, No midline deformity and No JVD Lymphatic: No lymphedema Chest Chest: normal inspection of the chest Resp Effort & Inspection: normal respiratory effort, able to speak in complete sentences, no respiratory distress and no use of accessory muscles Auscultation: clear to auscultation bilaterally, no rales, no rhonchi and no wheezes Cardio Rate: regular rate Rhythm: regular rhythm Heart Sounds: no click, no gallops, no murmurs and no rubs Pulses: normal peripheral pulses GI Inspection: non-distended Palpation: soft, no hepatosplenomegaly, No guarding, No pulsatile mass and No tender Auscultation: normal bowel sounds Back/Spine/Pelvis Back: No CVA tenderness Cervical Spine: cervical ROM normal and No pain with cervical ROM Thoracic/Lumbar Spine: thoracic and lumbar spine normal to inspection Other: Patient has tenderness over her right SI joint. Skin General: no rashes or lesions noted, No jaundice and No petechiae Neuro General: alert, oriented x3, gait normal and no focal motor deficits Speech: speech normal Extrem General: full ROM, no pedal edema and no calf tenderness Other: Patient has no contusion or other evidence of trauma of her right lower extremity. There is no edema. Patient has intact distal pulses in her right foot and ankle. No discoloration. Patient has full passive range of motion of her right leg. Psych Appearance: well kempt Mental Status: mental status grossly normal Attitude: cooperative Thought Content: normal and suicidality Judgment: judgment good Course Course Narrative: Patient was treated symptomatically for her pain. She did not have any fever, recent injury, or neurologic deficit to indicate a more serious cause of pain. Additionally, her pain character was the same as prior episodes. Pain had been longstanding, and patient had already been worked up and had established specialty care. As such, I did not feel further workup was indicated in the emergency department. Patient was found to be feeling much better. We have discussed follow-up as well as the usual indications for return. Orders Ordered: Discontinued Medications Hydromorphone HCl (Dilaudid) 0.5 mg IM NOW ONE Stop: 02/11/19 08:14 Last Admin: 02/11/19 08:35 Dose: 0.5 mg Ketorolac Tromethamine (Toradol) 60 mg IM NOW ONE Stop: 02/11/19 08:14 Last Admin: 02/11/19 08:36 Dose: 60 mg MDM - Back Pain/Injury Medical Records Attestation: I reviewed the patient's medical records. Discharge Plan Departure Patient Disposition: Home Clinical Impression: Radicular low back pain Discharge Date/Time: 02/11/19 09:36 Interventions: ED Discharge Assessment Last Done: 02/11/19 09:34 Instructions: DI for Back Pain With Sciatica Activity Restrictions/Additional Instructions: You may take the Percocet for your pain, but if you take this, please do not take Tylenol simultaneously or for 4 hours before or afterward. Please follow up with Dr. Hyde about your pain, as well as to plan your surgery. Prescriptions: New oxycodone-acetaminophen [Percocet] 5-325 mg tablet 1 tab PO Q4-6H PRN (Reason: pain) Qty: 20 RF: 0 No Action alendronate [Fosamax] 70 mg tablet 70 mg PO QWEEK Qty: 4 RF: 6 propranolol 60 mg tablet 60 mg PO BID Qty: 60 RF: 5 tramadol 50 mg tablet 50 mg PO Q8H PRN (Reason: pain) Qty: 60 RF: 1 simvastatin 20 mg tablet 20 mg PO HS Qty: 90 RF: 1 sennosides [Senna Lax] 8.6 mg tablet 17.2 mg PO HS Qty: 180 RF: 1 sertraline 100 mg tablet 200 mg PO QAM Qty: 180 RF: 1 bupropion HCl 200 mg tablet sustained-release 12 hr 200 mg PO Q DAY Qty: 90 RF: 1 gabapentin 800 mg tablet 800 mg PO Q6H Qty: 120 RF: 2 buspirone 15 mg tablet 15 mg PO DAILY Qty: 30 RF: 5 trazodone 50 mg tablet 50 mg PO BEDTIME Qty: 30 RF: 5 hydroxyzine pamoate [Vistaril] 50 mg capsule 50 mg PO BEDTIME PRN (Reason: itching) Qty: 30 RF: 5 docusate sodium 250 mg capsule 250 mg PO DAILY Qty: 30 RF: 5 cyclobenzaprine 10 mg tablet 10 mg PO BID Qty: 60 RF: 5 Referrals: Nain Tran MD [Primary Care Provider] -
--- NOTE | 2019-02-11 08:16 | PC.NURSE ---
c/o right buttocks , lateral side of legs , all the way down to the toes pain. denies uti sxs, denies bladder or bowel issue, denies fever or vomiting, reported diarrhea yesterday. denies injury or trauma
[2019-02-11] MEDS: HYDROMORPHONE 1 MG INJ 0.5 MG IM (08:35)
[2019-02-11] MEDS: KETOROLAC 60 MG/2 ML VIAL IM (08:36)
[2019-02-11 09:00] VITALS: BP 125/60; PULSE 61; RESP 17; O2SAT 96
[2019-02-11 09:12] VITALS: BP 125/60; PULSE 64; RESP 16; O2SAT 95
--- NOTE | 2019-02-11 09:13 | PC.NURSE ---
did not check temp due to pt drinking coffee
== END 2019-02-11 09:36 | disposition home or self-care (01) ==
PROVIDERS: Emergency Provider Emergency Medicine; Family Provider Psychiatry & Neurology Psychiatry; PCP Student in an Organized Health Care Education/Training Program
DX: M54.16 Radiculopathy, lumbar region (principal)
CPT/HCPCS: 96372; 99283; J1170; J1885

== ENCOUNTER 2019-02-25 16:17 | Inpatient (IN) | payer MEDICARE, SELFPAY ==
[2019-02-17 12:21] VITALS: BMI 22.8
[2019-02-24] VITALS (17 sets, daily range): BP systolic 87–168; BP diastolic 46–74; PULSE 58–76; RESP 8–18; TEMP 35.8–36.6; O2SAT 64–97; BMI 22.9
--- NOTE | 2019-02-24 | DI.RAD.S_ITS ---
PROCEDURE: XR LUMBAR SPINE 1V INDICATIONS: LAMINECTOMY TECHNIQUE: Single intraoperative fluoroscopic image of the lower lumbar spine were acquired. COMPARISON: [facility], , L-SPINE 2-3 VIEWS, 06/08/2016, 13:36. FINDINGS: Intraoperative fluoroscopic image of lower lumbar spine shows surgical instrument placed posteriorly at L3-4 level. IMPRESSION: Fluoroscopy guidance was provided intraoperatively for lower lumbar spine laminectomy procedure. Dictated by: Bassam Polk M.D. on 02/24/2019 at 9:27 Approved by: Bassam Polk M.D. on 02/24/2019 at 9:29
--- NOTE | 2019-02-24 07:23 | PM.PREOP ---
Pre-operative Note Interval Note History & Physical reviewed/Exam performed by Physician: Yes Changes to H&P: No
[2019-02-24] MEDS: LACTATED RINGERS 1,000 ML 42 ML IV ×2 (07:46→09:35)
[2019-02-24] MEDS: CEFAZOLIN 2 GM/100 ML FROZ.PIGGY IV ×3 (07:50→23:31)
--- NOTE | 2019-02-24 08:21 | SUR.OPER ---
Prone on spine table, head in foam head support, padded chest and pelvic supports, gel pad at knees, lower legs supported by pillows; nipples, genitalia and toes free of pressure, arms secured on foam padded arm boards at <90 degrees abduction. Tape over blanket at thigh secured to table.
[2019-02-24] MEDS: THROMBIN (RECOMBINANT) 5,000 UNIT VIAL 5000 UNIT TOP (08:28)
[2019-02-24] MEDS: VANCOMYCIN 1,000 MG VIAL 1000 MG TOP (08:28)
[2019-02-24] MEDS: BUPIVACAINE 0.25% (PF) 8 ML, fentaNYL 100 MCG INJ (08:28)
[2019-02-24] MEDS: SODIUM CHLORIDE 0.9% 1,000 ML, GENTAMICIN 80 MG IRR (08:29)
--- NOTE | 2019-02-24 09:10 | PC.NURSE ---
Day shift: Ptnot on AC unit at this time.
[2019-02-24] MEDS: ACETAMINOPHEN 1,000 MG/100 ML VIAL IV (09:22)
--- NOTE | 2019-02-24 10:17 | P.OP_ITS ---
Operative Date/Time/Diagnoses Date of procedure: 02/24/19 Time of procedure: 10:08 Pre-op diagnosis: lumbar stenosis with radiculopathy Post-op diagnosis: same Procedure & Clinicians Procedure: L34 laminectomy with discectomy L45 laminectomy with discectomy use of microscope placement of epidural catheter Same procedure as scheduled: Yes Indications: [age] year old female with intractable pain from stenosis. They had failed conservative management and requested operative intervention. Risks and benefits of surgery were discussed and appropriate consents were obtained. Surgeon: Lazaro Hyde Assistant Inventory Manager: Gianna Garner Anesthesia Type: General Operative Notes Findings: large midline cyst at L45 and bleb caudal to this Closure Type: primary Specimen(s): none sent Estimated Blood Loss (mL): 20 Procedure in detail: Patient was brought to the operating room and intubated on the table. They were rolled over on the well-padded prone position on the Antony table. A time-out was performed. Preoperative antibiotics were given. The back was prepped and draped in standard sterile fashion. Using fluoroscopy for localization, a 5cm incision was made in the midline. We used Bovie to dissect through the lumbodorsal fascia and then subperiosteally dissect the paraspinal muscles off the right side. A marker was placed and x-ray was taken to confirm positioning. We then brought in the microscope. A right-sided laminectomy was performed at L4-5. There was a large midline cyst coming off of the inner spinous space occupying a large mass inside the spinal canal. We carefully had to undermine this and decompress it. Once this was adequately removed, we looked further underneath the remaining L5 lamina. There appeared to be a bleb 8 mm past where we had done our laminectomy. There was no spinal fluid leaking from this. It did go past the midline. We left this alone as it appeared stable and I did not want to have to do a complete laminectomy at the next level to try to repair a bleb that was stable. We carefully depressed the dura and reached across the midline to decompress the opposite side at L4-5. We went to the large extruded disc herniation on the right lower aspect and this was removed. The neural foramen were cleared out. Next we continued our laminectomy up to the L3-4 level. We reach across the midline and decompress the opposite side. We cleared out the foramen. We came down to the disc and carefully retracted the dura medially. This was a hard calcified disc. As it was still quite prominent, we carefully retracted the dura and used an osteophyte impactor to smash it down approximately 5 mm in depth until it was adequately reduced and there did not appear to be any further pressure on the nerves. At the end, we could reach with the ball probe cephalad and caudally across the midline and to the foramen and everything was opened. The wound was irrigated. An epidural catheter was prepared with 8 mL of 0.25% Marcaine and 100 mcg of fentanyl. The dura was carefully depressed and the catheter was advanced 6 cm cephalad underneath remaining lamina without resistance. The fascia was then closed in layers. The epidural catheter was injected without complications. Vancomycin powder was placed in the wound. The superficial and the skin were closed. Sterile dressing was placed. Patient was rolled over extubated brought to recovery room with no complications. Complications: none Condition: stable Disposition: PACU Plan for aftercare: Overnight admission. Up with PT
--- NOTE | 2019-02-24 10:55 | PC.NURSE ---
Day shift: Pt on unit at approx 1100. Oriented to room and call light. Denies any pain. SCD's in place. Agrees to not get OOB w/o help. VS ok. RA 97%. Dressing on back is CDI.
[2019-02-24] MEDS: LACTATED RINGERS 1,000 ML 125 ML IV ×2 (11:05→19:24)
[2019-02-24] MEDS: buPROPion SR 100 MG TAB 200 MG PO (11:17)
[2019-02-24] MEDS: SERTRALINE 50 MG TABLET 200 MG PO (11:18)
[2019-02-24] MEDS: GABAPENTIN 400 MG CAPSULE 800 MG PO ×3 (11:18→23:30)
--- NOTE | 2019-02-24 15:19 | PT.IIE ---
Current Diagnoses Spinal stenosis, lumbar region with neurogenic claudication (02/24/19) Intervertebral disc disorders with radiculopathy, lumbar region (02/24/19) Surgery Performed Operation Date: 02/24/19 07:45 Actual Procedures p Laminectomy & Discectomy L3-4,L4-5 - Lazaro Hyde MD Surgical History (Last Reviewed 02/11/19 @ 08:11 by Saba Washington MD) History of ankle surgery (Resolved 2009) History of bilateral mastectomy (Resolved 03/04/13) History of breast augmentation (Resolved 09/2013) History of orthopedic surgery (Resolved 2007) History of removal of cyst (Resolved 1963) History of right hip hemiarthroplasty (Resolved 09/12/17) History of tonsillectomy (Resolved) Status post appendectomy (Resolved) Status post epidural steroid injection (Resolved 07/10/18) Status post total abdominal hysterectomy and bilateral salpingo-oophorectomy (MARTIN-BSO) (Resolved 1962) Medical History (Last Reviewed 02/11/19 @ 08:11 by Saba Washington MD) Anxiety (Chronic) Depression (Chronic) Hyperlipidemia (Chronic) Hypertension (Chronic) Lumbar spinal stenosis (Chronic) Lumbosacral radiculopathy (Chronic) Ductal carcinoma in situ (DCIS) of right breast (Resolved 2012) Physical Therapy Inpatient Evaluation/Re-Eval M1 PT/OT-IP Prior Functional Status Start: 02/24/19 14:50 Freq: NEEDED Status: Active Protocol: Document 02/24/19 14:50 IJS (Rec: 02/24/19 15:19 IJS [id number]) Medical Review Prior Functional Status Medical History Reviewed Yes Diet/Fluid Consistency Regular Communication [place] Mobility and Gait Frequent falls, actually had one this morning before coming in for elective surgery. Has a 4 wheeled walker at home and a single point cane. Most falls in the bathoom per her report. Activities of Daily Living and IADL's Would like help with her laundry but has been managing independently. Prior Functional Level (Other details) States her is not of any assistance at home and would like at least 4 hours 1X week to help with chores. Social History Household Members spouse Living Arrangements House Number of Floors (Floors) One Floor Number of Stairs To Enter/Railing? Two platform steps to enter without rail. Home Environment Standard Height Toilet Tub/Shower Home Equipment Four Wheel Walker Straight Cane Employment Status Unemployed Additional Social History Comment States a FWW is too wide for her doorways, she does not have a grab bar in her bathroom but knows she should. She did not want to put a hole in the tile wall but is going to try and find someone now. M2 PT-IP Current Condition Start: 02/24/19 14:50 Freq: NEEDED Status: Active Protocol: Document 02/24/19 14:50 IJS (Rec: 02/24/19 15:19 IJS [id number]) Physical Therapy Current Condition Current Condition Evaluation Date 02/24/19 Treatment Diagnosis Walking/gait disturbance - L3- 4,L4-5 lami Onset Date 02/24/19 Precautions Lumbar Precautions Log Roll No Twisting Limit Bending Lifting Restriction of 10 lbs Gait Belt above Incisional Area Weight Bearing Status Weight Bearing Status Weight Bear as Tolerated M3 PT-IP Subjective Start: 02/24/19 14:50 Freq: NEEDED Status: Active Protocol: Document 02/24/19 14:50 IJS (Rec: 02/24/19 15:19 IJS [id number]) Subjective Physical Therapy Visit Type Type Initial Evaluation Visit Start Time 13:12 Visit Stop Time 13:45 Total Visit Minutes 33 Number of BUSINESS CONTINUITY DIRECTOR Visits 0 Physical Therapy Visit Comments Patient Comments Ready to get up and go to the bathroom, happy that her right leg is not hurting Patient Goals Home with assist when ready, no detention Therapy Pain Assessment Pain When Pain Assessed During Mobility Pain Present Pain Present Pain Reported Location back Intensity 4 Scale Used Numeric (1 - 10) Description Acute Pain Behaviors Facial Grimacing Pain Management Techniques Re-positioning M4 PT-IP Mobility and Gait Start: 02/24/19 14:50 Freq: NEEDED Status: Active Protocol: Document 02/24/19 14:50 IJS (Rec: 02/24/19 15:19 IJS [id number]) PT-Bed Mobility Assessment Rolling Type of Rolling Log Rolling Level of Assist Minimal Assistance 1 Person Assistance Supine to Sit Supine to Sit Minimal Assistance 1 Person Assistance Scooting Scooting to Edge of Bed Standby Assistance PT-Transfer Assessment Sit to and From Stand Sit to and from Stand Minimal Assistance Equipment Transfer Assistive Device Gait Belt Front Wheeled Walker Orthotic/Prosthetic Devices or Brace: No Transfers Transfer Destination Chair Toilet Transfer Technique Stand Step Pivot Transfer Ability Level of Assist Contact Guard Assistance Comments Mobility Comments V. cues needed to get in front of the toilet before sitting and to use grab bar. Gait Assessment Gait Gait Assistance Required: Contact Guard Assist Minimum Assistance Able to Maintain Weight Bearing Status Yes During Gait Assistive Devices Assistive Device Gait Belt Front Wheeled Walker Orthotic/Prosthetic Devices or Brace: No Gait Deviations General Gait Pattern Decreased Stride Length Narrow Based Gait Factors Limiting Gait Function Factors Limiting Gait Function Decreased Activity Tolerance Pain Poor Safety Awareness Comments Gait Comments Left knee started to buckle when up from toilet and when turning slight LOB requiring min A. Needed cues for walker placement and posture. PT-Balance Assessment Sitting Balance and Reactions Static Sitting Balance Ability Normal Dynamic Sitting Balance Ability Good Standing Balance and Reactions Static Standing Balance Ability Good Dynamic Standing Balance Ability Fair Comments Other Balance Tests/Deviations/Treatment Needs walker for balance and : safety M5 PT-IP Objective Assessments Start: 02/24/19 14:50 Freq: NEEDED Status: Active Protocol: Document 02/24/19 14:50 IJS (Rec: 02/24/19 15:19 IJS [id number]) Orientation Orientation/Cognition Level of Alertness Alert Orientation Name Language Function Ability No Deficits Noted Safety Awareness Decreased Safety Awareness Memory Description Short Term Impaired Comments Seemed to talk about random topics and repeat herself Gross Range of Motion Upper Extremity ROM Assessment Within Functional Limits Strength Upper Extremity Strength Assessment Within Functional Limits Lower Extremity Strength Assessment Right Impaired Ankle 3+/5 Comments Strength Comments Dorsiflexion and EHL weakness Coordination Assessment Gross Coordination Gross Coordination WNL Sensation Assessment Sensation Gross Sensation WNL Light Touch Intact Muscle Tone Muscle Tone WNL Yes Other Assessments Other Other Assessments Day of surgery, tolerated mobility well and wanted to stay up in recliner chair after treatment, reclined. Provided with post op back surgical packet. Cues and assist needed for log rolling to get out of bed. Will need to be able to go up two platform steps and use 4 wheeled walker for home use. M6 PT-IP Treatment Start: 02/24/19 14:50 Freq: NEEDED Status: Active Protocol: Document 02/24/19 14:50 IJS (Rec: 02/24/19 15:19 IJS [id number]) Physical Therapy Treatment Exercises Exercises Ankle Pumps Heel Slides Seated Knee Flexion/Extension Education Education Provided Post-Op Packet Safety M7 PT-IP Assessment and Plan Start: 02/24/19 14:50 Freq: NEEDED Status: Active Protocol: Document 02/24/19 14:50 IJS (Rec: 02/24/19 15:19 IJS [id number]) PT Summary Assessment and Plan Potential Rehabilitation Potential Good Status of Condition at Evaluation Stable Summary Impairments Pain Strength Balance Bed Mobility Transfers Gait Assessment Summary Patient not receptive to detention but may need short stay secondary poor safety awareness and extensive fall history. Patients pain was only described at incision site and not down her legs she was very happy about that. I explained that the anesthesia may not be warn off all the way yet. Goals Bed Mobility Goal Contact Guard Assistance Transfer Goal Standby Assistance Gait Goal Standby Assistance Other Goals Up/down two platform steps Frequency of Treatment Frequency Of Treatment Twice a Day Treatment Plan Physical Therapy Treatment Plan Bed Mobility Training Transfer Training Gait Training Therapeutic Exercise Balance Retraining Post Op Education Discharge Planning Recommendations To Nursing Amount of Assist Needed 1 Person Assist Discharge Recommendations PT Discharge Recommendations Home with 01/04 Assist Home Health SNF Rehab Other Discharge Recommendations Will need to be safe and independent to return home as of no help per her report Equipment Needed for Home Before Could use grab bar in the Discharge bathroom and she would like someone there when she showers because when she rinses her hair the tub gets slippery.
[2019-02-24] MEDS: OXYCODONE/ACETAMINOPHEN 5/325 TABLET 1 TAB PO (16:08)
[2019-02-24] MEDS: KETOROLAC 30 MG/ML VIAL IV (18:27)
--- NOTE | 2019-02-24 19:30 | PC.NURSE ---
Pt ambulates to bathroom with 1-asst and fww; drsg to lower spine c/d/i; pt reports reduction in pain to LRE r/t diagnosis; mild to moderate pain to back improved with PO pain meds; VSS; c/m/s to BLLEs positive; IV fluids infusing; pt using call light, as needed; bed alarm
[2019-02-24] MEDS: OXYCODONE/ACETAMINOPHEN 5/325 TABLET 2 TAB PO (20:03)
[2019-02-24] MEDS: PROPRANOLOL 40 MG TABLET 60 MG PO (21:11)
[2019-02-24] MEDS: SENNOSIDES 8.6 MG TABLET 17.2 MG PO (21:12)
[2019-02-24] MEDS: SIMVASTATIN 20 MG TABLET PO (21:13)
[2019-02-24] MEDS: TRAZODONE 50 MG TABLET PO (21:13)
--- NOTE | 2019-02-24 23:41 | PC.NURSE ---
Addendum entered by Sharon Arenas R.N. 02/25/19 04:36: Bladder scan revealed approx 182ml retained after last void, will continue to monitor post void residuals and report to day shift. Addendum entered by Sharon Arenas R.N. 02/25/19 04:29: During a transfer from the bedside commode, FISH SKINNING MACHINE FEEDER reports that pt's knees buckled underneath her and a fall was prevented by quick action from FISH SKINNING MACHINE FEEDER. Pt has made multiple trips to bedside commode with a combined output total of 450ml of urine, but has made 2 transfers without urinating. Will do a post void residual to see if pt is retaining causing frequency. Original Note: Shift note: Received pt from evening shift. Pt resting comfortably in bed at time of assessment Assessment notable for hypertension 168/67, bruising to arms, back, and legs from recent falls r/t hx of right leg pain. Pt reporting 4/10 numeric pain when resting in bed and 6/10 numeric when ambulated to bedside commode, back dressing (gauze w/ tegaderm) is C/D/I. Educated pt on use and purpose of footie scds, pt agreed to wear them, applied when pt was returned to bed. All other VS are wnl, pt on RA @ 95% O2, call light in reach, pt is a high fall risk d/t hx of falls, most recent day of surgery, bed alarm activated.
[2019-02-25] MEDS: OXYCODONE/ACETAMINOPHEN 5/325 TABLET 2 TAB PO ×4 (03:23→19:02)
[2019-02-25] MEDS: LACTATED RINGERS 1,000 ML 125 ML IV (03:23)
[2019-02-25 05:49] VITALS: BP 145/66; PULSE 67; RESP 16; TEMP 36.2; O2SAT 94
[2019-02-25] MEDS: GABAPENTIN 400 MG CAPSULE 800 MG PO ×4 (05:49→22:45)
[2019-02-25 06:14] LABS: Hematocrit 31.2 % (36-46); Hemoglobin 10.6 g/dL (12.0-16.0)
--- NOTE | 2019-02-25 06:25 | PC.NURSE ---
Patient got up with 1 person assist to the BSC, but as patient was next to the commode her legs gave way, and was able to sit on toilet.
[2019-02-25 07:30] VITALS: BP 142/53; PULSE 62; RESP 12; TEMP 36.8; O2SAT 94
--- NOTE | 2019-02-25 07:55 | PM.PNPO.1 ---
Subjective Date Patient Seen: 02/25/19 Time Patient Seen: 07:55 Interval history: Her epidural wore off overnight and she has had recurrence of pain in the back. Getting some stronger pain over the top of the right foot in front of the ankle, but much better than it had been preoperatively. No headaches or dizziness Exam Vital Signs (past 8 hours): - 02/25/19 05:49 Temperature 97.2 F L Pulse Rate 67 Respiratory Rate 16 Blood Pressure 145/66 H Pulse Oximetry 94 Oxygen Delivery Method Room Air Oxygen Flow Rate 0 Const Orientation: alert and oriented x3 Back/Spine/Pelvis Other: CDI. 5/5 motor both lower extremities except for 4/5 right EHL Objective Labs Result Diagrams: 02/25/19 06:04 Labs: Laboratory Results - last 24 hr 02/25/19 06:04 Hgb 10.6 L Hct 31.2 L Assessment & Plan Post-op Postoperative Procedures Operation Date: 02/24/19 07:45 Actual Procedures Side Surgeon p Laminectomy & Discectomy L3-4,L4-5 Lazaro Hyde MD Her epidural has worn off and she is having more pain. I am going to give her some steroid medication to see if this helps with the foot. If she is doing well possibly discharge home today but may require 1 more day of hospitalization. Will try to set up home health for her. Quality VTE Deep Vein Thrombosis/Pulmonary Embolism Present on Admission: No
[2019-02-25] MEDS: DOCUSATE 250 MG CAPSULE PO (08:21)
[2019-02-25] MEDS: SODIUM CHLORIDE 0.9% FLUSH 10 ML IV ×3 (08:22→20:46)
[2019-02-25] MEDS: BUSPIRONE 15 MG TABLET PO (08:22)
[2019-02-25] MEDS: PROPRANOLOL 40 MG TABLET 60 MG PO ×2 (08:22→20:31)
[2019-02-25] MEDS: buPROPion SR 100 MG TAB 200 MG PO (08:22)
[2019-02-25] MEDS: SERTRALINE 50 MG TABLET 200 MG PO (08:22)
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
--- NOTE | 2019-02-25 09:41 | PT.IPTN ---
Current Diagnoses Spinal stenosis, lumbar region with neurogenic claudication (02/24/19) Intervertebral disc disorders with radiculopathy, lumbar region (02/24/19) Surgery Performed Operation Date: 02/24/19 07:45 Actual Procedures p Laminectomy & Discectomy L3-4,L4-5 - Lazaro Hyde MD Physical Therapy Treatment Note M2 PT-IP Current Condition Start: 02/24/19 14:50 Freq: NEEDED Status: Active Protocol: Document 02/24/19 14:50 IJS (Rec: 02/24/19 15:19 IJS [id number]) Physical Therapy Current Condition Current Condition Evaluation Date 02/24/19 Treatment Diagnosis Walking/gait disturbance - L3- 4,L4-5 lami Onset Date 02/24/19 Precautions Lumbar Precautions Log Roll No Twisting Limit Bending Lifting Restriction of 10 lbs Gait Belt above Incisional Area Weight Bearing Status Weight Bearing Status Weight Bear as Tolerated M3 PT-IP Subjective Start: 02/24/19 14:50 Freq: NEEDED Status: Active Protocol: Document 02/25/19 09:12 LJ (Rec: 02/25/19 09:41 LJ [id number]) Subjective Physical Therapy Visit Type Type Treatment Note Visit Start Time 09:12 Visit Stop Time 09:33 Total Visit Minutes 21 Notes Pt sitting in chair. States she is in too much pain and feels too weak to get up again after moving from bed to chair. Therapy Pain Assessment Pain When Pain Assessed During Mobility Pain Present Pain Present Pain Reported M4 PT-IP Mobility and Gait Start: 02/24/19 14:50 Freq: NEEDED Status: Active Protocol: Document 02/24/19 14:50 IJS (Rec: 02/24/19 15:19 IJS [id number]) PT-Bed Mobility Assessment Rolling Type of Rolling Log Rolling Level of Assist Minimal Assistance 1 Person Assistance Supine to Sit Supine to Sit Minimal Assistance 1 Person Assistance Scooting Scooting to Edge of Bed Standby Assistance PT-Transfer Assessment Sit to and From Stand Sit to and from Stand Minimal Assistance Equipment Transfer Assistive Device Gait Belt Front Wheeled Walker Orthotic/Prosthetic Devices or Brace: No Transfers Transfer Destination Chair Toilet Transfer Technique Stand Step Pivot Transfer Ability Level of Assist Contact Guard Assistance Comments Mobility Comments V. cues needed to get in front of the toilet before sitting and to use grab bar. Gait Assessment Gait Gait Assistance Required: Contact Guard Assist Minimum Assistance Able to Maintain Weight Bearing Status Yes During Gait Assistive Devices Assistive Device Gait Belt Front Wheeled Walker Orthotic/Prosthetic Devices or Brace: No Gait Deviations General Gait Pattern Decreased Stride Length Narrow Based Gait Factors Limiting Gait Function Factors Limiting Gait Function Decreased Activity Tolerance Pain Poor Safety Awareness Comments Gait Comments Left knee started to buckle when up from toilet and when turning slight LOB requiring min A. Needed cues for walker placement and posture. PT-Balance Assessment Sitting Balance and Reactions Static Sitting Balance Ability Normal Dynamic Sitting Balance Ability Good Standing Balance and Reactions Static Standing Balance Ability Good Dynamic Standing Balance Ability Fair Comments Other Balance Tests/Deviations/Treatment Needs walker for balance and : safety M5 PT-IP Objective Assessments Start: 02/24/19 14:50 Freq: NEEDED Status: Active Protocol: Document 02/24/19 14:50 IJS (Rec: 02/24/19 15:19 IJS [id number]) Orientation Orientation/Cognition Level of Alertness Alert Orientation Name Language Function Ability No Deficits Noted Safety Awareness Decreased Safety Awareness Memory Description Short Term Impaired Comments Seemed to talk about random topics and repeat herself Gross Range of Motion Upper Extremity ROM Assessment Within Functional Limits Strength Upper Extremity Strength Assessment Within Functional Limits Lower Extremity Strength Assessment Right Impaired Ankle 3+/5 Comments Strength Comments Dorsiflexion and EHL weakness Coordination Assessment Gross Coordination Gross Coordination WNL Sensation Assessment Sensation Gross Sensation WNL Light Touch Intact Muscle Tone Muscle Tone WNL Yes Other Assessments Other Other Assessments Day of surgery, tolerated mobility well and wanted to stay up in recliner chair after treatment, reclined. Provided with post op back surgical packet. Cues and assist needed for log rolling to get out of bed. Will need to be able to go up two platform steps and use 4 wheeled walker for home use. M6 PT-IP Treatment Start: 02/24/19 14:50 Freq: NEEDED Status: Active Protocol: Document 02/25/19 09:12 LJ (Rec: 02/25/19 09:41 LJ [id number]) Physical Therapy Treatment Exercises Exercises Ankle Pumps Gluteal Sets Quad Sets Heel Slides Straight Leg Raises Education Education Provided Safety Other Treatments Other Treatment Performed all exercises performed seated in chair. Provided education on stabilizing core muscles prior to initializing moving her LEs. M7 PT-IP Assessment and Plan Start: 02/24/19 14:50 Freq: NEEDED Status: Active Protocol: Document 02/25/19 09:12 ALENA (Rec: 02/25/19 09:41 ALENA [id number]) PT Summary Assessment and Plan Potential Rehabilitation Potential Good Status of Condition at Evaluation Stable Summary Impairments Pain ROM Strength Balance Coordination Bed Mobility Transfers Gait Activity Tolerance Assessment Summary Pt was not willing to get up again due to stated pain and weeakness. She was cooperative with doing seated exercises and stated that she wanted to get up in the afternoon. According to patient, transfer from bed to chair required 2 person assist and they were holding her up for the most part because her legs were too weak. Attempt gait training this afternoon. Goals Bed Mobility Goal Contact Guard Assistance Transfer Goal Standby Assistance Gait Goal Standby Assistance Other Goals Up/down two platform steps Frequency of Treatment Frequency Of Treatment Twice a Day Treatment Plan Physical Therapy Treatment Plan Bed Mobility Training Transfer Training Gait Training Therapeutic Exercise Balance Retraining Post Op Education Discharge Planning Recommendations To Nursing Amount of Assist Needed 1 Person Assist Discharge Recommendations PT Discharge Recommendations Home with 01/04 Assist Home Health SNF Rehab Other Discharge Recommendations Will need to be safe and independent to return home as of no help per her report Equipment Needed for Home Before Could use grab bar in the Discharge bathroom and she would like someone there when she showers because when she rinses her hair the tub gets slippery.
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
[2019-02-25] MEDS: DEXAMETHASONE 10 MG/ML VIAL IV (10:09)
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
[2019-02-25 11:11] VITALS: BP 155/78; PULSE 61; RESP 12; TEMP 36.6; O2SAT 97
--- NOTE | 2019-02-25 15:13 | PT.IPTN ---
Current Diagnoses Spinal stenosis, lumbar region with neurogenic claudication (02/24/19) Intervertebral disc disorders with radiculopathy, lumbar region (02/24/19) Surgery Performed Operation Date: 02/24/19 07:45 Actual Procedures p Laminectomy & Discectomy L3-4,L4-5 - Lazaro Hyde MD Physical Therapy Treatment Note M2 PT-IP Current Condition Start: 02/24/19 14:50 Freq: NEEDED Status: Active Protocol: Document 02/24/19 14:50 IJS (Rec: 02/24/19 15:19 IJS [id number]) Physical Therapy Current Condition Current Condition Evaluation Date 02/24/19 Treatment Diagnosis Walking/gait disturbance - L3- 4,L4-5 lami Onset Date 02/24/19 Precautions Lumbar Precautions Log Roll No Twisting Limit Bending Lifting Restriction of 10 lbs Gait Belt above Incisional Area Weight Bearing Status Weight Bearing Status Weight Bear as Tolerated M3 PT-IP Subjective Start: 02/24/19 14:50 Freq: NEEDED Status: Active Protocol: Document 02/25/19 15:09 GGD (Rec: 02/25/19 15:13 GGD [id number]) Subjective Physical Therapy Visit Type Type Treatment Note Visit Start Time 14:40 Visit Stop Time 15:05 Total Visit Minutes 25 Physical Therapy Visit Comments Patient Comments Pt willing to work with therapy. Therapy Pain Assessment Pain When Pain Assessed During Mobility Pain Present Pain Present Pain Reported M4 PT-IP Mobility and Gait Start: 02/24/19 14:50 Freq: NEEDED Status: Active Protocol: Document 02/25/19 15:09 GGD (Rec: 02/25/19 15:13 GGD [id number]) PT-Bed Mobility Assessment Rolling Type of Rolling Log Rolling Roll to Right Level of Assist Contact Guard Assistance 1 Person Assistance Supine to Sit Supine to Sit Contact Guard Assistance 1 Person Assistance Bedrails Sit to Supine Sit to Supine Minimal Assistance 1 Person Assistance Bedrails Scooting Scooting to Edge of Bed Contact Guard Assistance PT-Transfer Assessment Sit to and From Stand Sit to and from Stand Contact Guard Assistance 1 Person Assistance Use of Upper Extremities Equipment Transfer Assistive Device Gait Belt Front Wheeled Walker Orthotic/Prosthetic Devices or Brace: No Transfers Transfer Destination Bed Transfer Ability Level of Assist Contact Guard Assistance Gait Assessment Gait Gait Assistance Required: Contact Guard Assist Minimum Assistance Distance (Feet) 10 Able to Maintain Weight Bearing Status Yes During Gait Assistive Devices Assistive Device Gait Belt Front Wheeled Walker Orthotic/Prosthetic Devices or Brace: No Gait Deviations General Gait Pattern Decreased Stride Length Narrow Based Gait Factors Limiting Gait Function Factors Limiting Gait Function Decreased Activity Tolerance Pain Poor Balance Poor Safety Awareness Comments Gait Comments Pt need cue sfor safety. M5 PT-IP Objective Assessments Start: 02/24/19 14:50 Freq: NEEDED Status: Active Protocol: Document 02/24/19 14:50 IJS (Rec: 02/24/19 15:19 IJS [id number]) Orientation Orientation/Cognition Level of Alertness Alert Orientation Name Language Function Ability No Deficits Noted Safety Awareness Decreased Safety Awareness Memory Description Short Term Impaired Comments Seemed to talk about random topics and repeat herself Gross Range of Motion Upper Extremity ROM Assessment Within Functional Limits Strength Upper Extremity Strength Assessment Within Functional Limits Lower Extremity Strength Assessment Right Impaired Ankle 3+/5 Comments Strength Comments Dorsiflexion and EHL weakness Coordination Assessment Gross Coordination Gross Coordination WNL Sensation Assessment Sensation Gross Sensation WNL Light Touch Intact Muscle Tone Muscle Tone WNL Yes Other Assessments Other Other Assessments Day of surgery, tolerated mobility well and wanted to stay up in recliner chair after treatment, reclined. Provided with post op back surgical packet. Cues and assist needed for log rolling to get out of bed. Will need to be able to go up two platform steps and use 4 wheeled walker for home use. M6 PT-IP Treatment Start: 02/24/19 14:50 Freq: NEEDED Status: Active Protocol: Document 02/25/19 15:09 GGD (Rec: 02/25/19 15:13 GGD [id number]) Physical Therapy Treatment Exercises Exercises Ankle Pumps Gluteal Sets Education Education Provided Precautions Safety M7 PT-IP Assessment and Plan Start: 02/24/19 14:50 Freq: NEEDED Status: Active Protocol: Document 02/25/19 15:09 GGD (Rec: 02/25/19 15:13 GGD [id number]) PT Summary Assessment and Plan Summary Assessment Summary Pt needed less assist for bed mobility, Min A for sit to supine. She need mod cues for safety and precautions. She is impulsive and has poor safety awareness. She does need stair mobility if D/C home. Frequency of Treatment Frequency Of Treatment Twice a Day Recommendations To Nursing Amount of Assist Needed 1 Person Assist Discharge Recommendations PT Discharge Recommendations Home with 24/7 Assist SNF Rehab
[2019-02-25 15:30] VITALS: BP 173/77; PULSE 63; RESP 20; TEMP 36.1; O2SAT 96
[2019-02-25 19:23] VITALS: BP 160/71; PULSE 63; RESP 18; TEMP 36.4; O2SAT 97
[2019-02-25] MEDS: SIMVASTATIN 20 MG TABLET PO (20:30)
[2019-02-25] MEDS: TRAZODONE 50 MG TABLET PO (20:31)
[2019-02-25 23:00] VITALS: BP 182/76; PULSE 60; RESP 18; TEMP 36.7; O2SAT 94
[2019-02-26] MEDS: CYCLOBENZAPRINE 10 MG TABLET PO (02:20)
--- NOTE | 2019-02-26 03:05 | PC.NURSE ---
Addendum entered by Danielle Perry CNA 02/26/19 04:15: 0415 Patient was on the bed castillo and asked why can't we get some big men to get me to the toilet? I said Because we don't want to hurt anyone's backs, big men included. Patient shook her head and said I just can't pee on this. Offered her to get back on the bed castillo later. Original Note: HOSE TENDER note: Patient was sitting on BSC and when getting up took two steps and said it hurts too bad and then leaned over onto the bed (the lower half) instead of falling. Patient was so low in bed that she needed help to get higher and into a more comfortable position in bed. Patient was unable to move herself and legs frequently buckle when getting up to down to void (which she voids frequently).
[2019-02-26] MEDS: OXYCODONE/ACETAMINOPHEN 5/325 TABLET 2 TAB PO ×5 (03:38→22:21)
--- NOTE | 2019-02-26 03:54 | PC.NURSE ---
Addendum entered by Sharon Arenas R.N. 02/26/19 05:12: Upon reassessment for 10/10 pain numeric pain, pt appeared to be resting comfortably with eyes closed and snoring. Original Note: Shift note: Received pt from evening shift. Pt appeared to be resting comfortably in bed at start of shift, assessment done when pt awoke as pt wants to make frequent trips to bedside commode. Pt still having issues maintaining own weight on legs with episodes of buckling prompting CHILD CARE TEAM LEAD to have to assist pt suddenly to prevent fall. Pt c/o of 10/10 numeric pain while lying in bed, stating that most of the pain is in her legs and is more like a spasm, offered pt 10mg PO Flexeril to which she accepted per MAR. Pt using call light copiously to be readjusted in bed and for pain management, medicated with 10mg PO [place] for 10/10 numeric pain stating I'm about to but then laughing when this RN assured her she wouldn't at this time. Pt called again with call light to state that she needed to urinate again, educated pt on use of bedpan d/t constant near falls with attempts to use BSC tonight, pt states that she can just hold onto the commode if she were to start to fall, educated pt that BSC is not meant to hold her up and it could actually result in a worse fall. Pt asked if any men were working that could help catch her should she fall, educated her that fall prevention was the priority and that catching her should she start to fall would be worse case outcome. Pt agrees to use bedpan at this time. Assessment is further notable for incision to back with dressing C/D/I, multiple bruises and abrasions to body from constant falls at home prior to admission, pt is hypertensive with BP 182/76, RA of 94% O@ sat, rest of VS wnl. Pt also experiencing loose stools but denies N/V or cramping in abdomen. Bed alarm is on, call light is in reach, pt is a high fall risk d/t hx of falls, weakness in legs, and several near falls on this shift alone.
[2019-02-26 05:00] VITALS: BP 148/65; PULSE 63; RESP 18; TEMP 36.9; O2SAT 92
[2019-02-26] MEDS: GABAPENTIN 400 MG CAPSULE 800 MG PO ×4 (05:10→22:20)
--- NOTE | 2019-02-26 07:20 | PM.PNPO.1 ---
Subjective Date Patient Seen: 02/26/19 Time Patient Seen: 07:20 Interval history: She had a rough day yesterday. Still getting spasms in the back requiring assistance for mobility. She is also getting some radiation shooting down the right leg when she gets the back spasms. Exam Vital Signs (past 8 hours): - 02/26/19 05:00 Temperature 98.4 F Pulse Rate 63 Respiratory Rate 18 Blood Pressure 148/65 H Pulse Oximetry 92 Oxygen Delivery Method Room Air Oxygen Flow Rate 0 Const Orientation: alert and oriented x3 Back/Spine/Pelvis Other: CDI. 5/5 motor both lower extremities. Objective Labs Result Diagrams: 02/25/19 06:04 Assessment & Plan Post-op Postoperative Procedures Operation Date: 02/24/19 07:45 Actual Procedures Side Surgeon p Laminectomy & Discectomy L3-4,L4-5 Lazaro Hyde MD Continue to mobilize with physical therapy. She is still requiring assist with mobility. She has stairs at home and is a very high fall risk with a history of multiple fractures recently. We are going to probably plan on senior living tomorrow. Quality VTE Deep Vein Thrombosis/Pulmonary Embolism Present on Admission: No
[2019-02-26 07:28] VITALS: BP 181/78; PULSE 63; RESP 18; TEMP 36.6; O2SAT 93
--- NOTE | 2019-02-26 07:56 | CM.DPC ---
Addendum entered by Adelina Heath LPN 02/26/19 13:40: [facility]/February called this morning and they are happy to have pt at the facility when she is stable for same. Ortho RICHAR Gill is updated with the d/c dispo details and he will update Dr. Hyde. P: remains as per below: FCC: 02/28 or > Original Note: DCP: continued: Dr. Hyde's progress note of today is reviewed. Met now with pt to update her re the change to INPT admission status yesterday 02/25 and the initial referral sent in this morning to [facility] as per our prior discussion re snf choice. (am waiting for a call back from [facility]). Pt continues to have ongoing pain and spasms. She expresses great relief re the opportunity now for rehab at [facility] before she returns home. Her white board in room is updated with the dc diso plan. P: [facility] pending acceptance, when stable for same. 02/28 (Saturday) or >. Transport: w/c jazmyne SAMUELS: not yet started.
[2019-02-26] MEDS: BUSPIRONE 15 MG TABLET PO (08:21)
[2019-02-26] MEDS: PROPRANOLOL 40 MG TABLET 60 MG PO ×2 (08:22→20:23)
[2019-02-26] MEDS: SERTRALINE 50 MG TABLET 200 MG PO (08:24)
[2019-02-26] MEDS: buPROPion SR 100 MG TAB 200 MG PO (08:24)
[2019-02-26] MEDS: SODIUM CHLORIDE 0.9% FLUSH 10 ML IV ×2 (08:26→20:27)
[2019-02-26] MEDS: KETOROLAC 30 MG/ML VIAL IV (08:27)
[2019-02-26 11:00] VITALS: BP 161/71; PULSE 61; RESP 18; TEMP 36.9; O2SAT 95
--- NOTE | 2019-02-26 11:10 | OT.IP.TRT ---
Current Diagnoses Spinal stenosis, lumbar region with neurogenic claudication (02/24/19) Intervertebral disc disorders with radiculopathy, lumbar region (02/24/19) Surgery Performed Operation Date: 02/24/19 07:45 Actual Procedures p Laminectomy & Discectomy L3-4,L4-5 - Lazaro Hyde MD Occupational Therapy Treatment Note M2 OT-IP Current Condition Start: 02/25/19 16:06 Freq: Status: Active Protocol: Document 02/25/19 09:56 PJM (Rec: 02/25/19 16:39 PJM [id number]) Occupational Therapy Current Condition Current Condition Evaluation Date 02/25/19 Treatment Diagnosis decreased self care, functional mobility s/p L3-4. L4-5 lami's/discectomies Diagnosis Onset Date 02/24/19 Post Operative Precautions Lumbar Precautions Log Roll No Twisting Limit Bending Lifting Restriction of 10 lbs Gait Belt above Incisional Area M3 OT- IP Subjective and Pain Start: 02/25/19 16:06 Freq: Status: Active Protocol: Document 02/26/19 11:10 PJM (Rec: 02/26/19 18:06 PJM [email or web address]) OT- Subjective Occupational Therapy Visit Type Type Treatment Note Visit Start Time 10:15 Visit Stop Time 11:10 Total Visit Minutes 55 Notes partial cotx with P.T. for safety with mobility as legs tend to buckle, especially RLE Occupational Therapy Visit Comments Patient Comments What are we doing now? Patient/Caregiver Goals to go to rehab to get stronger so legs won't buckle OT Pain Assessment Pain When Pain Assessed After Treatment FLACC Pain Scale Face No particular expression Legs Normal position; relaxed Activity Quiet, moves easily Cry No cry (awake or asleep) Consolability Reassurable with touch FLACC Total 1 M4 OT- IP ADL's Start: 02/25/19 16:06 Freq: Status: Active Protocol: Document 02/26/19 11:10 PJM (Rec: 02/26/19 18:06 PJM [id number]) OT [id number] General Evaluation Self-Feeding Ability Independent OT ADL-Dressing General Eval Lower Body Dressing Ability Moderate Assistance Areas Needing Assistance Retrieving/Set-up of Clothing Pants/Shorts Socks Shoes Assistive Devices Dressing Assistive Devices Long Handled Shoe [employer] Sock Aid Comments OT Dressing Comments Began education and practice with pt re: use of brick loader, sock aid and long shoe horn to increase independence in lower body dressing. Pt continues to need mod verbal cues to follow lumbar spine precautions and to use adptive equipment effectively. requires repetition of instructions. OT ADL-Toileting General Evaluation Toileting Ability Moderate Assistance Total Assistance Areas Needing Assistance Manage Clothing Perform Perineal Hygiene Devices Toileting Assistive Devices Commode Comments OT Toileting Comments mod assist with [facility] care, total assist clothing management M6 OT- IP Functional Cognition Start: 02/25/19 16:06 Freq: Status: Active Protocol: Document 02/26/19 11:10 PJM (Rec: 02/26/19 18:06 PJM [email or web address]) Cognitive Factors Limiting Selfcare Function Cognitive Ability Level of Alertness Alert Patient Orientation Name Age Birthday Month Date Year Day of Week Place Situation Attention Span Ability Capable of Focused Attention Ability to Follow Commands Able to Follow One Step Commands Memory Description Immediate Impaired Short Term Impaired Working Impaired Safety Awareness Decreased Recall of Precautions Decreased Ability to Apply Precautions Problem Solving Ability Unable to Identify Errors Needs Assist to Identify Solutions Executive Function Ability Unable to Filter Distractions Unable to Make Plans Unable to Organize Plans Unable to Remember Details Abstract Thinking Ability Unable to Make Generalizations Unable to Draw Logical Conclusions Cognitive Tests SLUMS 22/30 (norm is 27/30, score of 21-26 indicates mild neurocognitive deficit, 1-20 is dementia range). Pt had difficulty with immediate, short term and working memory. Mental math slow but accurate. Word generation slow. Pt had difficulty with number and hand placement on clock drawing. Cognitive Comments Cognitive Assessment Comments Pt has decreased insight into potential safety issues, require repetition of new information M7 OT- IP Mobility and Balance Start: 02/25/19 16:06 Freq: Status: Active Protocol: Document 02/26/19 11:10 PJM (Rec: 02/26/19 18:06 PJM [email or web address]) OT-Transfer Assessment Sit to and From Stand Sit to and from Stand Minimal Assistance Transfers Transfer Ability Minimal Assistance 2 Person Assistance Technique Transfer Destination Bedside Commode Chair Transfer Technique Stand Step Pivot Devices Transfer Assistive Devices Gait Belt Front Wheeled Walker Comments Mobility Comments 2 person assist due to frequent BLE buckling OT- Gait Assessment Gait Gait Assistance Required: Contact Guard Assist Distance (Feet) 12 Assistive Devices Assistive Device Gait Belt Front Wheeled Walker Comments Gait Ability Comments 6+6 feet with seated rest, pt gets painful cramps/spasms in RLE then holds RLE off floor; needs cues to keep FWW close OT- Balance Assessment Sitting Balance and Reactions Static Sitting Balance Ability Good Dynamic Sitting Balance Ability Fair Standing Balance and Reactions Static Standing Balance Ability Fair Dynamic Standing Balance Ability Poor M9 OT- IP Assessment and Plan Start: 02/25/19 16:06 Freq: Status: Active Protocol: Document 02/26/19 11:10 PJM (Rec: 02/26/19 18:06 PJM [email or web address]) OT Summary Assessment and Plan Summary OT Impairments Pain Strength Balance Functional Cognition Functional Mobility Grooming Dressing Toileting Bathing Toilet Transfers Shower Transfers Progress Towards Goals Slow Progress due to Pain Slow Progress due to Cognition Assessment Summary Pt able to ambulate short distance today with improved tranfer abilities. Still using 2 person assist for mobility for safety until pt performance more consistent. Pt has significant cognitive deficits on standardized assessment as described above, but has potential to improve function and independence with repetition and practice. Strongly recommend SNF for further rehab at d/c as pt has many stairs at home and does not assist at home. Goals Grooming Goal Standby Assistance Dressing Goal Standby Assistance Long Handled Shoe [employer] Sock Aid Toileting Goal Standby Assistance Bathing Goal Minimal Assistance Toilet Transfer Goal Standby Assistance Shower Transfer Goal Contact Guard Assistance Tub Transfer Bench Patient/Caregiver Education Goal Demonstrate Post-Op Precautions Demonstrate Energy Conservation and Pacing Caregiver Independent Assisting Patient OT-Other Goals Pt will participate in cognitive assessment with good effort. Days to Meet Goals 5 Frequency of Treatment Frequency Of Treatment Once a Day Discharge Recommendations OT Discharge Recommendations SNF Rehab Other Discharge Recommendations pt currently needs 24 hr assist for safety Home Equipment Needs transfer tub seat, grab bars, hand held shower; provided brick loader, sock aid, long shoe horn and long bath sponge
--- NOTE | 2019-02-26 11:26 | PT.OTN ---
Current Diagnoses Spinal stenosis, lumbar region with neurogenic claudication (02/24/19) Intervertebral disc disorders with radiculopathy, lumbar region (02/24/19)
--- NOTE | 2019-02-26 14:57 | PT.IPTN ---
Current Diagnoses Spinal stenosis, lumbar region with neurogenic claudication (02/24/19) Intervertebral disc disorders with radiculopathy, lumbar region (02/24/19) Surgery Performed Operation Date: 02/24/19 07:45 Actual Procedures p Laminectomy & Discectomy L3-4,L4-5 - Lazaro Hyde MD Physical Therapy Treatment Note M2 PT-IP Current Condition Start: 02/24/19 14:50 Freq: NEEDED Status: Active Protocol: Document 02/24/19 14:50 IJS (Rec: 02/24/19 15:19 IJS [id number]) Physical Therapy Current Condition Current Condition Evaluation Date 02/24/19 Treatment Diagnosis Walking/gait disturbance - L3- 4,L4-5 lami Onset Date 02/24/19 Precautions Lumbar Precautions Log Roll No Twisting Limit Bending Lifting Restriction of 10 lbs Gait Belt above Incisional Area Weight Bearing Status Weight Bearing Status Weight Bear as Tolerated M3 PT-IP Subjective Start: 02/24/19 14:50 Freq: NEEDED Status: Active Protocol: Document 02/26/19 14:52 SA (Rec: 02/26/19 14:57 SA [email or web address]) Subjective Physical Therapy Visit Type Type Treatment Note Visit Start Time 14:19 Visit Stop Time 14:23 Total Visit Minutes 24 Notes Pt still in chair, agreeable to walk. Physical Therapy Visit Comments Patient Comments Rates back pain as 4-5/10 at rest. Patient Goals TO [facility] for continued rehab. Therapy Pain Assessment Pain When Pain Assessed During Mobility Pain Present Pain Present Pain Reported Location back Intensity 5 Scale Used Numeric (1 - 10) Pain Management Techniques Modification of Treatment Re-positioning Timing of Activity with Medications M4 PT-IP Mobility and Gait Start: 02/24/19 14:50 Freq: NEEDED Status: Active Protocol: Document 02/26/19 14:52 SA (Rec: 02/26/19 14:57 SA [email or web address]) PT-Bed Mobility Assessment Rolling Type of Rolling Log Rolling Roll to Right Sit to Supine Sit to Supine Minimal Assistance 1 Person Assistance Bedrails Scooting Scooting to Edge of Bed Standby Assistance Scooting Up and Down in Bed Standby Assistance PT-Transfer Assessment Sit to and From Stand Sit to and from Stand Contact Guard Assistance 1 Person Assistance Equipment Transfer Assistive Device Gait Belt Front Wheeled Walker Orthotic/Prosthetic Devices or Brace: No Transfers Transfer Destination Bed Transfer Technique Stand Step Pivot Transfer Ability Level of Assist Contact Guard Assistance 1 Person Assistance Comments Mobility Comments Review of log roll technique for Sit>Supine, pt continues to need cues. Improving transfers and decreased pain this afternoon. Gait Assessment Gait Gait Assistance Required: Contact Guard Assist 1 Person Assist Distance (Feet) 30 Able to Maintain Weight Bearing Status Yes During Gait Assistive Devices Assistive Device Gait Belt Front Wheeled Walker Orthotic/Prosthetic Devices or Brace: No Gait Deviations General Gait Pattern Decreased Stride Length Narrow Based Gait Factors Limiting Gait Function Factors Limiting Gait Function Decreased Activity Tolerance Pain Poor Balance Poor Safety Awareness Comments Gait Comments Gait for two short walks about 15 feet each with decreased pain and improving posture and gait. M5 PT-IP Objective Assessments Start: 02/24/19 14:50 Freq: NEEDED Status: Active Protocol: Document 02/24/19 14:50 IJS (Rec: 02/24/19 15:19 IJS [id number]) Orientation Orientation/Cognition Level of Alertness Alert Orientation Name Language Function Ability No Deficits Noted Safety Awareness Decreased Safety Awareness Memory Description Short Term Impaired Comments Seemed to talk about random topics and repeat herself Gross Range of Motion Upper Extremity ROM Assessment Within Functional Limits Strength Upper Extremity Strength Assessment Within Functional Limits Lower Extremity Strength Assessment Right Impaired Ankle 3+/5 Comments Strength Comments Dorsiflexion and EHL weakness Coordination Assessment Gross Coordination Gross Coordination WNL Sensation Assessment Sensation Gross Sensation WNL Light Touch Intact Muscle Tone Muscle Tone WNL Yes Other Assessments Other Other Assessments Day of surgery, tolerated mobility well and wanted to stay up in recliner chair after treatment, reclined. Provided with post op back surgical packet. Cues and assist needed for log rolling to get out of bed. Will need to be able to go up two platform steps and use 4 wheeled walker for home use. M6 PT-IP Treatment Start: 02/24/19 14:50 Freq: NEEDED Status: Active Protocol: Document 02/26/19 14:52 SA (Rec: 02/26/19 14:57 [id number]) Physical Therapy Treatment Exercises Exercises Ankle Pumps Gluteal Sets Education Education Provided Precautions Safety Other Treatments Other Treatment Performed Verbal, Visual and written review of spinal precautions. M7 PT-IP Assessment and Plan Start: 02/24/19 14:50 Freq: NEEDED Status: Active Protocol: Document 02/26/19 14:52 SA (Rec: 02/26/19 14:57 SA [id number]) PT Summary Assessment and Plan Summary Impairments Pain ROM Strength Balance Coordination Bed Mobility Transfers Gait Activity Tolerance Assessment Summary Gradual improvement of bed mobility, txs and gait. Pt still needs cues to maintain spinal precautions. Frequency of Treatment Frequency Of Treatment Twice a Day Treatment Plan Physical Therapy Treatment Plan Bed Mobility Training Transfer Training Gait Training Therapeutic Exercise Balance Retraining Post Op Education Discharge Planning Recommendations To Nursing Amount of Assist Needed 1 Person Assist Discharge Recommendations PT Discharge Recommendations SNF Rehab
[2019-02-26 16:10] VITALS: BP 142/74; PULSE 57; RESP 18; TEMP 36.9; O2SAT 97
[2019-02-26] MEDS: TRAZODONE 50 MG TABLET PO (20:26)
[2019-02-26] MEDS: SIMVASTATIN 20 MG TABLET PO (20:27)
[2019-02-26 20:36] VITALS: BP 140/68; PULSE 59; RESP 16; TEMP 36.3; O2SAT 98
[2019-02-26 23:00] VITALS: BP 138/89; PULSE 55; RESP 16; TEMP 36.2; O2SAT 95
[2019-02-27] MEDS: CYCLOBENZAPRINE 10 MG TABLET PO ×2 (00:08→20:20)
[2019-02-27 06:00] VITALS: BP 186/89; PULSE 60; RESP 16; TEMP 37; O2SAT 94
[2019-02-27] MEDS: GABAPENTIN 400 MG CAPSULE 800 MG PO ×4 (06:00→21:59)
--- NOTE | 2019-02-27 06:53 | PC.NURSE ---
Patient was trying to get out of bed, calling on the call light trying to get out of the bed when I walked in. She expressed that she wanted to get up to go to the bathroom. She needed to pee pee. I attempted to get her to help out of bed. She wasn't following directions. She was crying out because she was in pain. I had to lift her to the [facility]. She sat on the commode and told me I could leave her. I explained to I couldn't because she has a history of falls. After five minutes she told me her back hurt so much and she didn't pee but she couldn't stand her pain. I tried to get her back into bed. She tilted her body and slumped back into bed. She couldn't turn her body because of pain. I got her back into bed and told the nurse.
[2019-02-27] MEDS: OXYCODONE/ACETAMINOPHEN 5/325 TABLET 2 TAB PO ×3 (07:00→17:13)
--- NOTE | 2019-02-27 07:30 | P.PN_ITS ---
Subjective Date Patient Seen: 02/27/19 Time Patient Seen: 07:28 Interval history: She had a rough night. Mostly sharp pain in the back but it will run down the entire right leg. Exam Vital Signs (past 8 hours): - 02/27/19 06:00 Temperature 98.6 F Pulse Rate 60 Respiratory Rate 16 Blood Pressure 186/89 H Pulse Oximetry 94 Oxygen Delivery Method Room Air Oxygen Flow Rate 0 Const Orientation: alert and oriented x3 Back/Spine/Pelvis Other: CDI. 5/5 motor both lower extremities. Objective Labs Result Diagrams: 02/25/19 06:04 Assessment & Plan Post-op Postoperative Procedures Operation Date: 02/24/19 07:45 Actual Procedures Side Surgeon p Laminectomy & Discectomy L3-4,L4-5 Lazaro Hyde MD Her leg pain did better when we gave her a dose of steroids am going to put her back on steroids for a day. She has been running hypertensive, I am going to add some clonidine on top of this. [facility] Quality VTE Deep Vein Thrombosis/Pulmonary Embolism Present on Admission: No
[2019-02-27 07:40] VITALS: BP 194/73; PULSE 59; RESP 18; TEMP 36.3; O2SAT 94
[2019-02-27] MEDS: DEXAMETHASONE 10 MG/ML VIAL IV (08:20)
[2019-02-27] MEDS: BUSPIRONE 15 MG TABLET PO (08:22)
[2019-02-27] MEDS: PROPRANOLOL 40 MG TABLET 60 MG PO ×2 (08:22→20:20)
[2019-02-27] MEDS: buPROPion SR 100 MG TAB 200 MG PO (08:22)
[2019-02-27] MEDS: SERTRALINE 50 MG TABLET 200 MG PO (08:23)
[2019-02-27] MEDS: SODIUM CHLORIDE 0.9% FLUSH 10 ML IV ×2 (08:23→20:23)
[2019-02-27 08:24] VITALS: BP 194/73
[2019-02-27] MEDS: cloNIDine 0.1 MG TABLET PO (08:24)
--- NOTE | 2019-02-27 11:00 | PT.IPTN ---
Current Diagnoses Spinal stenosis, lumbar region with neurogenic claudication (02/24/19) Intervertebral disc disorders with radiculopathy, lumbar region (02/24/19) Spinal stenosis, lumbar region with neurogenic claudication (02/25/19) Intervertebral disc disorders with radiculopathy, lumbar region (02/25/19) Surgery Performed Operation Date: 02/24/19 07:45 Actual Procedures p Laminectomy & Discectomy L3-4,L4-5 - Lazaro Hyde MD Physical Therapy Treatment Note M2 PT-IP Current Condition Start: 02/24/19 14:50 Freq: NEEDED Status: Active Protocol: Document 02/24/19 14:50 IJS (Rec: 02/24/19 15:19 IJS [id number]) Physical Therapy Current Condition Current Condition Evaluation Date 02/24/19 Treatment Diagnosis Walking/gait disturbance - L3- 4,L4-5 lami Onset Date 02/24/19 Precautions Lumbar Precautions Log Roll No Twisting Limit Bending Lifting Restriction of 10 lbs Gait Belt above Incisional Area Weight Bearing Status Weight Bearing Status Weight Bear as Tolerated M3 PT-IP Subjective Start: 02/24/19 14:50 Freq: NEEDED Status: Active Protocol: Document 02/27/19 11:00 GGD (Rec: 02/27/19 11:36 GGD [id number]) Subjective Physical Therapy Visit Type Type Treatment Note Visit Start Time 10:30 Visit Stop Time 11:00 Total Visit Minutes 30 Physical Therapy Visit Comments Patient Comments Pt willing to work with [facility]. Therapy Pain Assessment Pain When Pain Assessed During Mobility Pain Present Pain Present Pain Reported Location back Intensity 6 Scale Used Numeric (1 - 10) Pain Management Techniques Modification of Treatment Re-positioning Timing of Activity with Medications M4 PT-IP Mobility and Gait Start: 02/24/19 14:50 Freq: NEEDED Status: Active Protocol: Document 02/27/19 11:00 GGD (Rec: 02/27/19 11:36 GGD [id number]) PT-Bed Mobility Assessment Rolling Type of Rolling Log Rolling Roll to Right Level of Assist Minimal Assistance 1 Person Assistance Sit to Supine Sit to Supine Minimal Assistance 1 Person Assistance Bedrails Scooting Scooting to Edge of Bed Contact Guard Assistance Minimal Assistance Scooting Up and Down in Bed Standby Assistance PT-Transfer Assessment Sit to and From Stand Sit to and from Stand Contact Guard Assistance Minimal Assistance 1 Person Assistance Equipment Transfer Assistive Device Gait Belt Front Wheeled Walker Orthotic/Prosthetic Devices or Brace: No Transfers Transfer Destination Bed Chair Bedside Commode Transfer Technique Stand Step Pivot Transfer Ability Level of Assist Contact Guard Assistance Minimal Assistance 1 Person Assistance Comments Mobility Comments Pt impulsive with sit and need cues for hand placement. PT need CGA to min a for sitting balance during scooting to EOB . Gait Assessment Gait Gait Assistance Required: Contact Guard Assist 1 Person Assist Distance (Feet) 25 Able to Maintain Weight Bearing Status Yes During Gait Assistive Devices Assistive Device Gait Belt Front Wheeled Walker Orthotic/Prosthetic Devices or Brace: No Gait Deviations General Gait Pattern Decreased Stride Length Narrow Based Gait Factors Limiting Gait Function Factors Limiting Gait Function Decreased Activity Tolerance Pain Poor Balance Poor Safety Awareness Comments Gait Comments Gait for two short walks about 15 feet each with decreased pain and improving posture and gait. M5 PT-IP Objective Assessments Start: 02/24/19 14:50 Freq: NEEDED Status: Active Protocol: Document 02/24/19 14:50 IJS (Rec: 02/24/19 15:19 IJS [id number]) Orientation Orientation/Cognition Level of Alertness Alert Orientation Name Language Function Ability No Deficits Noted Safety Awareness Decreased Safety Awareness Memory Description Short Term Impaired Comments Seemed to talk about random topics and repeat herself Gross Range of Motion Upper Extremity ROM Assessment Within Functional Limits Strength Upper Extremity Strength Assessment Within Functional Limits Lower Extremity Strength Assessment Right Impaired Ankle 3+/5 Comments Strength Comments Dorsiflexion and EHL weakness Coordination Assessment Gross Coordination Gross Coordination WNL Sensation Assessment Sensation Gross Sensation WNL Light Touch Intact Muscle Tone Muscle Tone WNL Yes Other Assessments Other Other Assessments Day of surgery, tolerated mobility well and wanted to stay up in recliner chair after treatment, reclined. Provided with post op back surgical packet. Cues and assist needed for log rolling to get out of bed. Will need to be able to go up two platform steps and use 4 wheeled walker for home use. M6 PT-IP Treatment Start: 02/24/19 14:50 Freq: NEEDED Status: Active Protocol: Document 02/27/19 11:00 GGD (Rec: 02/27/19 11:36 GGD [id number]) Physical Therapy Treatment Exercises Exercises Ankle Pumps Gluteal Sets Education Education Provided Precautions Safety M7 PT-IP Assessment and Plan Start: 02/24/19 14:50 Freq: NEEDED Status: Active Protocol: Document 02/27/19 11:00 GGDara (Rec: 02/27/19 11:36 GGD [id number]) PT Summary Assessment and Plan Summary Assessment Summary Pt was min a with mobility. She need mod cues. She is impulsive and has poor safety awareness. Pt not safe for home D/C. Frequency of Treatment Frequency Of Treatment Twice a Day Recommendations To Nursing Amount of Assist Needed 1 Person Assist Discharge Recommendations PT Discharge Recommendations SNF Rehab
[2019-02-27] MEDS: DEXAMETHASONE 4 MG/ML VIAL IV ×2 (11:01→17:14)
[2019-02-27 11:40] VITALS: BP 149/64; PULSE 62; RESP 18; TEMP 36.6; O2SAT 95
--- NOTE | 2019-02-27 15:31 | OT.IP.TRT ---
Current Diagnoses Spinal stenosis, lumbar region with neurogenic claudication (02/24/19) Intervertebral disc disorders with radiculopathy, lumbar region (02/24/19) Spinal stenosis, lumbar region with neurogenic claudication (02/25/19) Intervertebral disc disorders with radiculopathy, lumbar region (02/25/19) Surgery Performed Operation Date: 02/24/19 07:45 Actual Procedures p Laminectomy & Discectomy L3-4,L4-5 - Lazaro Hyde MD Occupational Therapy Treatment Note M2 OT-IP Current Condition Start: 02/25/19 16:06 Freq: Status: Active Protocol: Document 02/25/19 09:56 PJM (Rec: 02/25/19 16:39 PJM [id number]) Occupational Therapy Current Condition Current Condition Evaluation Date 02/25/19 Treatment Diagnosis decreased self care, functional mobility s/p L3-4. L4-5 lami's/discectomies Diagnosis Onset Date 02/24/19 Post Operative Precautions Lumbar Precautions Log Roll No Twisting Limit Bending Lifting Restriction of 10 lbs Gait Belt above Incisional Area M3 OT- IP Subjective and Pain Start: 02/25/19 16:06 Freq: Status: Active Protocol: Document 02/27/19 15:07 CCC (Rec: 02/27/19 15:31 CCC [email or web address]) OT- Subjective Occupational Therapy Visit Type Type Treatment Note Visit Start Time 12:55 Visit Stop Time 13:35 Total Visit Minutes 40 Occupational Therapy Visit Comments Patient Comments Pt agreeable to get up and practice LB dressing needs and then wanting to go back to bed. OT Pain Assessment Pain When Pain Assessed At Rest Pain Present Pain Present Pain Reported Location back Intensity 3 Scale Used Numeric (1 - 10) M4 OT- IP ADL's Start: 02/25/19 16:06 Freq: Status: Active Protocol: Document 02/27/19 15:07 CCC (Rec: 02/27/19 15:31 CCC [email or web address]) OT ADL-Dressing General Eval Lower Body Dressing Ability Moderate Assistance Areas Needing Assistance Socks Assistive Devices Dressing Assistive Devices Abstract Maker Sock Aid Comments OT Dressing Comments Pt not having good follow through with rememberin how to use recher and socks aid and and needing MODA to complete. Pt trying to use jitterbug operator to freda socks, and trying to freda sock over a sock as confused. M5 OT- IP IADL's Start: 02/25/19 16:06 Freq: Status: Active Protocol: Document 02/25/19 09:56 PJM (Rec: 02/25/19 16:39 PJM [id number]) OT-Instrumental Activities of Daily Living Deficits IADL Deficits Identified Deficits Home Safety Awareness Awareness of Need for Assistance at Home Decreased Awareness Ability to Problem Solve Emergency Unable to Problem Solve Situations Medication Management Medication Management Comments pt appears to have short term memory deficits that could interfere with safe medication management Money Management Money Management Comments pt appears to have short term memory deficits that could interfere with financial recruiter Meal Preparation Meal Preparation Caregiver Provides Assist Meal Preparation Comments pt relies in Meals on Wheels and states she does not do any other meal prep Phosphoric Acid Operator Phosphoric Acid Operator Comments pt reports difficulty with laundry and science and operations officer Driving Driving Comments pt uses taxi service, does not drive M6 OT- IP Functional Cognition Start: 02/25/19 16:06 Freq: Status: Active Protocol: Document 02/27/19 15:07 [facility] (Rec: 02/27/19 15:31 [facility] [id number]) Cognitive Factors Limiting Selfcare Function Cognitive Ability Level of Alertness Alert Attention Span Ability Capable of Focused Attention Ability to Follow Commands Able to Follow One Step Commands Memory Description Immediate Impaired Short Term Impaired Working Impaired Safety Awareness Decreased Recall of Precautions Decreased Ability to Apply Precautions Problem Solving Ability Unable to Identify Errors Needs Assist to Identify Solutions Executive Function Ability Unable to Filter Distractions Unable to Make Plans Unable to Organize Plans Unable to Remember Details Abstract Thinking Ability Unable to Make Generalizations Unable to Draw Logical Conclusions Cognitive Comments Cognitive Assessment Comments Pt not able to recall back precautions and needing MOD vc to be able to identify precautions. Pt realizes that pain medication are making her groogy and not thinking well however does not want to change medications as there are effective for her pain per pt. However , pt has poor safety awareness and high fall risk due to pt not thinking well. M7 OT- IP Mobility and Balance Start: 02/25/19 16:06 Freq: Status: Active Protocol: Document 02/27/19 15:07 [facility] (Rec: 02/27/19 15:31 [facility] [email or web address]) OT- Bed Mobility Assessment Sit to Supine Sit to Supine Assist Moderate Assistance 1 Person Assistance OT-Transfer Assessment Sit to and From Stand Sit to and from Stand Moderate Assistance Transfers Transfer Ability Moderate Assistance Technique Transfer Destination Bed Devices Transfer Assistive Devices Gait Belt Front Wheeled Walker Comments Mobility Comments Pt vc to push up from the armrests of the recliner, pt tends to bucle while standign and needing assist to stand balance and help guide FWW. Pt instead to going dwon on her elbow for log rolling tends lean backwards. OT- Balance Assessment Sitting Balance and Reactions Static Sitting Balance Ability Good Dynamic Sitting Balance Ability Fair Standing Balance and Reactions Static Standing Balance Ability Fair Dynamic Standing Balance Ability Poor M8 OT- IP Objective Assessments Start: 02/25/19 16:06 Freq: Status: Active Protocol: Document 02/25/19 09:56 PJM (Rec: 02/25/19 16:39 PJM [id number]) OT Gross Range of Motion Upper Extremity Range of Motion Assessment Within Functional Limits OT Strength Upper Extremity Strength Assessment Within Functional Limits OT- Coordination Assessment Comments Coordination Comments BUE WFL OT-Muscle Tone Assessment Muscle Tone WNL Yes OT Sensation Assessment Comments Summary Comments Pt denies BUE sensory deficits . M9 OT- IP Assessment and Plan Start: 02/25/19 16:06 Freq: Status: Active Protocol: Document 02/26/19 11:10 PJM (Rec: 02/26/19 18:06 PJM [id number]) OT Summary Assessment and Plan Summary OT Impairments Pain Strength Balance Functional Cognition Functional Mobility Grooming Dressing Toileting Bathing Toilet Transfers Shower Transfers Progress Towards Goals Slow Progress due to Pain Slow Progress due to Cognition Assessment Summary Pt able to ambulate short distance today with improved tranfer abilities. Still using 2 person assist for mobility for safety until pt performance more consistent. Pt has significant cognitive deficits on standardized assessment as decribed above, but has potential to improve function and independence with repetition and practice. Strongly recommend SNF for further rehab at d/c as pt has many stairs at home and does not assist at home. Goals Grooming Goal Standby Assistance Dressing Goal Standby Assistance Long Handled Shoe Horn Abstract Maker Sock Aid Toileting Goal Standby Assistance Bathing Goal Minimal Assistance Toilet Transfer Goal Standby Assistance Shower Transfer Goal Contact Guard Assistance Tub Transfer Bench Patient/Caregiver Education Goal Demonstrate Post-Op Precautions Demonstrate Energy Conservation and Pacing Caregiver Independent Assisting Patient OT-Other Goals Pt will participate in cognitve assessment with good effort. Days to Meet Goals 5 Frequency of Treatment Frequency Of Treatment Once a Day Discharge Recommendations OT Discharge Recommendations SNF Rehab Other Discharge Recommendations pt currently needs 24 hr assist for safety Home Equipment Needs transfer tub seat, grab bars, hand held shower; provided jitterbug operator, sock aid, long shoe horn and long bath sponge
[2019-02-27 15:33] VITALS: BP 151/74; PULSE 62; RESP 18; TEMP 36.3; O2SAT 95
--- NOTE | 2019-02-27 16:22 | PT.IPTN ---
Current Diagnoses Spinal stenosis, lumbar region with neurogenic claudication (02/24/19) Intervertebral disc disorders with radiculopathy, lumbar region (02/24/19) Spinal stenosis, lumbar region with neurogenic claudication (02/25/19) Intervertebral disc disorders with radiculopathy, lumbar region (02/25/19) Surgery Performed Operation Date: 02/24/19 07:45 Actual Procedures p Laminectomy & Discectomy L3-4,L4-5 - Lazaro Hyde MD Physical Therapy Treatment Note M2 PT-IP Current Condition Start: 02/24/19 14:50 Freq: NEEDED Status: Active Protocol: Document 02/24/19 14:50 IJS (Rec: 02/24/19 15:19 IJS [id number]) Physical Therapy Current Condition Current Condition Evaluation Date 02/24/19 Treatment Diagnosis Walking/gait disturbance - L3- 4,L4-5 lami Onset Date 02/24/19 Precautions Lumbar Precautions Log Roll No Twisting Limit Bending Lifting Restriction of 10 lbs Gait Belt above Incisional Area Weight Bearing Status Weight Bearing Status Weight Bear as Tolerated M3 PT-IP Subjective Start: 02/24/19 14:50 Freq: NEEDED Status: Active Protocol: Document 02/27/19 16:16 GGD (Rec: 02/27/19 16:22 GGD [id number]) Subjective Physical Therapy Visit Type Type Treatment Note Visit Start Time 16:00 Visit Stop Time 16:15 Total Visit Minutes 15 Number of INSPECTOR SHELLS Visits 5 Physical Therapy Visit Comments Patient Comments Pt would like to go back to bed. Therapy Pain Assessment Pain When Pain Assessed During Mobility Pain Present Pain Present Pain Reported M4 PT-IP Mobility and Gait Start: 02/24/19 14:50 Freq: NEEDED Status: Active Protocol: Document 02/27/19 16:16 GGD (Rec: 02/27/19 16:22 GGD [id number]) PT-Bed Mobility Assessment Rolling Type of Rolling Log Rolling Roll to Right Sit to Supine Sit to Supine Minimal Assistance 1 Person Assistance Bedrails Scooting Scooting to Edge of Bed Contact Guard Assistance PT-Transfer Assessment Sit to and From Stand Sit to and from Stand Contact Guard Assistance Minimal Assistance 1 Person Assistance Transfers Transfer Destination Bed Transfer Ability Level of Assist Contact Guard Assistance Minimal Assistance 1 Person Assistance Gait Assessment Gait Gait Assistance Required: Contact Guard Assist 1 Person Assist Distance (Feet) 30 Able to Maintain Weight Bearing Status Yes During Gait Assistive Devices Assistive Device Gait Belt Front Wheeled Walker Orthotic/Prosthetic Devices or Brace: No Gait Deviations General Gait Pattern Decreased Stride Length Narrow Based Gait Factors Limiting Gait Function Factors Limiting Gait Function Decreased Activity Tolerance Pain Poor Balance Poor Safety Awareness Comments Gait Comments PT ambulated 15 feet and then another 15 after seated rest break. M5 PT-IP Objective Assessments Start: 02/24/19 14:50 Freq: NEEDED Status: Active Protocol: Document 02/24/19 14:50 IJS (Rec: 02/24/19 15:19 IJS [id number]) Orientation Orientation/Cognition Level of Alertness Alert Orientation Name Language Function Ability No Deficits Noted Safety Awareness Decreased Safety Awareness Memory Description Short Term Impaired Comments Seemed to talk about random topics and repeat herself Gross Range of Motion Upper Extremity ROM Assessment Within Functional Limits Strength Upper Extremity Strength Assessment Within Functional Limits Lower Extremity Strength Assessment Right Impaired Ankle 3+/5 Comments Strength Comments Dorsiflexion and EHL weakness Coordination Assessment Gross Coordination Gross Coordination WNL Sensation Assessment Sensation Gross Sensation WNL Light Touch Intact Muscle Tone Muscle Tone WNL Yes Other Assessments Other Other Assessments Day of surgery, tolerated mobility well and wanted to stay up in recliner chair after treatment, reclined. Provided with post op back surgical packet. Cues and assist needed for log rolling to get out of bed. Will need to be able to go up two platform steps and use 4 wheeled walker for home use. M6 PT-IP Treatment Start: 02/24/19 14:50 Freq: NEEDED Status: Active Protocol: Document 02/27/19 16:16 GGD (Rec: 02/27/19 16:22 GGD [id number]) Physical Therapy Treatment Education Education Provided Precautions Safety M7 PT-IP Assessment and Plan Start: 02/24/19 14:50 Freq: NEEDED Status: Active Protocol: Document 02/27/19 16:16 GGD (Rec: 02/27/19 16:22 GGD [id number]) PT Summary Assessment and Plan Summary Assessment Summary Pt need less cuing. She is still impulsive and has poor safe awareness. She unable to follow [facility]K precautions. Pt would benefit from SNF rehab. Frequency of Treatment Frequency Of Treatment Twice a Day Recommendations To Nursing Amount of Assist Needed 1 Person Assist Discharge Recommendations PT Discharge Recommendations SNF Rehab
[2019-02-27] MEDS: TRAZODONE 50 MG TABLET PO (20:20)
[2019-02-27] MEDS: SIMVASTATIN 20 MG TABLET PO (20:20)
[2019-02-27 23:00] VITALS: BP 146/95; PULSE 64; RESP 16; TEMP 36.4; O2SAT 93
[2019-02-28] MEDS: DEXAMETHASONE 4 MG/ML VIAL IV ×2 (00:24→05:46)
--- NOTE | 2019-02-28 01:12 | PC.NURSE ---
Family Practitioner Note: 0000: Awake, resting in bed, watching TV. IV in place in lt wrist. Dressing to back is clean and dry, with tegaderm intact over dressing. B/P 146/95 at this time. Pt denies pain, though she experienced a brief muscle spasm.
[2019-02-28 05:00] VITALS: BP 171/79; PULSE 62; RESP 18; TEMP 36.9; O2SAT 93
[2019-02-28] MEDS: GABAPENTIN 400 MG CAPSULE 800 MG PO ×2 (05:47→12:23)
[2019-02-28] MEDS: OXYCODONE/ACETAMINOPHEN 5/325 TABLET 1 TAB PO (05:55)
[2019-02-28 07:40] VITALS: BP 190/78; PULSE 63; RESP 16; TEMP 37.2; O2SAT 92
[2019-02-28] MEDS: BUSPIRONE 15 MG TABLET PO (08:11)
[2019-02-28] MEDS: buPROPion SR 100 MG TAB 200 MG PO (08:11)
[2019-02-28] MEDS: SERTRALINE 50 MG TABLET 200 MG PO (08:11)
[2019-02-28] MEDS: DOCUSATE 250 MG CAPSULE PO (08:11)
[2019-02-28] MEDS: PROPRANOLOL 40 MG TABLET 60 MG PO (08:11)
[2019-02-28] MEDS: SODIUM CHLORIDE 0.9% FLUSH 10 ML IV (08:12)
[2019-02-28] MEDS: OXYCODONE/ACETAMINOPHEN 5/325 TABLET 2 TAB PO ×2 (08:14→12:25)
--- NOTE | 2019-02-28 10:45 | PT.IPTN ---
Current Diagnoses Spinal stenosis, lumbar region with neurogenic claudication (02/24/19) Intervertebral disc disorders with radiculopathy, lumbar region (02/24/19) Spinal stenosis, lumbar region with neurogenic claudication (02/25/19) Intervertebral disc disorders with radiculopathy, lumbar region (02/25/19) Surgery Performed Operation Date: 02/24/19 07:45 Actual Procedures p Laminectomy & Discectomy L3-4,L4-5 - Lazaro Hyde MD Physical Therapy Treatment Note M2 PT-IP Current Condition Start: 02/24/19 14:50 Freq: NEEDED Status: Active Protocol: Document 02/24/19 14:50 IJS (Rec: 02/24/19 15:19 IJS [id number]) Physical Therapy Current Condition Current Condition Evaluation Date 02/24/19 Treatment Diagnosis Walking/gait disturbance - L3- 4,L4-5 lami Onset Date 02/24/19 Precautions Lumbar Precautions Log Roll No Twisting Limit Bending Lifting Restriction of 10 lbs Gait Belt above Incisional Area Weight Bearing Status Weight Bearing Status Weight Bear as Tolerated M3 PT-IP Subjective Start: 02/24/19 14:50 Freq: NEEDED Status: Active Protocol: Document 02/28/19 10:45 GGD (Rec: 02/28/19 12:23 GGD [email or web address]) Subjective Physical Therapy Visit Type Type Treatment Note Visit Start Time 10:30 Visit Stop Time 10:45 Total Visit Minutes 15 Number of STRATEGY CONSULTANT Visits 6 Physical Therapy Visit Comments Patient Comments Pt would like to go back to bed. Therapy Pain Assessment Pain When Pain Assessed During Mobility Pain Present Pain Present Pain Reported Location back Intensity 4 Scale Used Numeric (1 - 10) M4 PT-IP Mobility and Gait Start: 02/24/19 14:50 Freq: NEEDED Status: Active Protocol: Document 02/28/19 10:45 GGD (Rec: 02/28/19 12:23 GGD [email or web address]) PT-Bed Mobility Assessment Rolling Type of Rolling Log Rolling Roll to Right Sit to Supine Sit to Supine Minimal Assistance 1 Person Assistance Bedrails Scooting Scooting to Edge of Bed Contact Guard Assistance PT-Transfer Assessment Sit to and From Stand Sit to and from Stand Contact Guard Assistance 1 Person Assistance Use of Upper Extremities Transfers Transfer Destination Bed Transfer Ability Level of Assist Contact Guard Assistance Minimal Assistance 1 Person Assistance Gait Assessment Gait Gait Assistance Required: Contact Guard Assist Minimum Assistance 1 Person Assist Distance (Feet) 30 Able to Maintain Weight Bearing Status Yes During Gait Assistive Devices Assistive Device Gait Belt Front Wheeled Walker Orthotic/Prosthetic Devices or Brace: No Gait Deviations General Gait Pattern Decreased Stride Length Narrow Based Gait Factors Limiting Gait Function Factors Limiting Gait Function Decreased Activity Tolerance Pain Poor Balance Poor Safety Awareness Comments Gait Comments Pt had increase in LE buckling after 20 feet gait needing Min A. M5 PT-IP Objective Assessments Start: 02/24/19 14:50 Freq: NEEDED Status: Active Protocol: Document 02/24/19 14:50 IJS (Rec: 02/24/19 15:19 IJS [id number]) Orientation Orientation/Cognition Level of Alertness Alert Orientation Name Language Function Ability No Deficits Noted Safety Awareness Decreased Safety Awareness Memory Description Short Term Impaired Comments Seemed to talk about random topics and repeat herself Gross Range of Motion Upper Extremity ROM Assessment Within Functional Limits Strength Upper Extremity Strength Assessment Within Functional Limits Lower Extremity Strength Assessment Right Impaired Ankle 3+/5 Comments Strength Comments Dorsiflexion and EHL weakness Coordination Assessment Gross Coordination Gross Coordination WNL Sensation Assessment Sensation Gross Sensation WNL Light Touch Intact Muscle Tone Muscle Tone WNL Yes Other Assessments Other Other Assessments Day of surgery, tolerated mobility well and wanted to stay up in recliner chair after treatment, reclined. Provided with post op back surgical packet. Cues and assist needed for log rolling to get out of bed. Will need to be able to go up two platform steps and use 4 wheeled walker for home use. M6 PT-IP Treatment Start: 02/24/19 14:50 Freq: NEEDED Status: Active Protocol: Document 02/28/19 10:45 GGD (Rec: 02/28/19 12:23 GGD [email or web address]) Physical Therapy Treatment Education Education Provided Precautions Safety M7 PT-IP Assessment and Plan Start: 02/24/19 14:50 Freq: NEEDED Status: Active Protocol: Document 02/28/19 10:45 GGD (Rec: 02/28/19 12:23 GGD [email or web address]) PT Summary Assessment and Plan Summary Assessment Summary Pt had LE buckling with gait. Seh needed less assist with sit to stand. She is impulsive and has poor safety awareness . Frequency of Treatment Frequency Of Treatment Twice a Day Recommendations To Nursing Amount of Assist Needed 1 Person Assist Discharge Recommendations PT Discharge Recommendations SNF Rehab
[2019-02-28 11:55] VITALS: BP 149/69; PULSE 59; RESP 18; TEMP 36.5; O2SAT 96
--- NOTE | 2019-02-28 12:07 | P.DS_ITS ---
History of Present Illness Date Patient Seen: 02/28/19 Time Patient Seen: 12:06 Chief complaint: *OPB* [id number] Narrative: Please see HPI in chart Discharge Providers Date of admission: 02/25/19 16:17 Discharge Date: 02/28/19 Primary care physician: Nain Tran MD Consults: 02/24/19 10:55 Consult to Occupational Therapy Evaluate & Treat Comment: Physician Instructions: Evaluate and treat Consult to Physical Therapy Evaluate & Treat Comment: Physician Instructions: Evaluate and Treat Discharge provider: Sheila Oliva PA-C Summary Discharge Diagnosis: s/p L3-4, L4-5 laminectomy Hospital Course: [age] year old female with intractable pain from stenosis. She had failed conservative management and requested operative intervention. Risks and benefits of surgery were discussed and appropriate consents were obtained. Patient was taken to the operating room for L3-4, L4-[address] Hyde on 02/24/19. She has been slow to mobilize with physical therapy and requires an assist and frequent cues for low back precautions. Due to this she would benefit from correction facility. She has had some issues with pain control, partially due to forgetting to ask for medication, but medications working well when she takes them. Intermittent hypertension that correlates with times of increased pain. Recommend she follow up with her PCP outpatient for further management. Status at Discharge Cognitive/behavioral status at discharge: oriented Functional status at discharge: uses cane/walker Overall status at discharge: patient is progressing back to baseline Exam Vital Signs (past 8 hours): - 02/28/19 05:00 02/28/19 07:40 Temperature 98.4 F 99.0 F Pulse Rate 62 63 Respiratory Rate 18 16 Blood Pressure 171/79 H 190/78 H Pulse Oximetry 93 92 Oxygen Delivery Method Room Air Oxygen Flow Rate 0 Narrative Exam Narrative: 78 year old female resting in bed. Alert and oriented in no acute distress. Dressing in place over low back is clean, dry, and intact. Intact dorisflexion and plantarflexion of the ankle and toes. Sensation intact in distal extremities. Soft, compressible calves bilaterally. Objective Labs Result Diagrams: 02/25/19 06:04 Discharge Plan Discharge Plan Patient Disposition: SNF Consult as needed: Dental, Hearing, Mental health, Podiatry and Vision Discharge comment: f/u 1.5 wks I certify the postop hospital correction care is medically necessary on a continuing basis for any conditions for which he/ she received care during this hospitalization.: Yes The receiving facility has agreed to accept transfer and provide medical treatment.: Yes Discharge Med Rec/Prescriptions Prescriptions: New oxycodone-acetaminophen 5-325 mg Tablet 1 tab PO Q4HR PRN (Reason: Pain, Moderate (4-6)) Qty: 20 RF: 0 Continued alendronate [Fosamax] 70 mg tablet 70 mg PO QWEEK Qty: 4 RF: 6 propranolol 60 mg tablet 60 mg PO BID Qty: 60 RF: 5 tramadol 50 mg tablet 50 mg PO Q8H PRN (Reason: pain) Qty: 60 RF: 1 simvastatin 20 mg tablet 20 mg PO HS Qty: 90 RF: 1 sennosides [Senna Lax] 8.6 mg tablet 17.2 mg PO HS Qty: 180 RF: 1 sertraline 100 mg tablet 200 mg PO QAM Qty: 180 RF: 1 bupropion HCl 200 mg tablet sustained-release 12 hr 200 mg PO Q DAY Qty: 90 RF: 1 gabapentin 800 mg tablet 800 mg PO Q6H Qty: 120 RF: 2 hydroxyzine pamoate [Vistaril] 50 mg capsule 50 mg PO BEDTIME PRN (Reason: itching) Qty: 30 RF: 5 cyclobenzaprine 10 mg tablet 10 mg PO BID Qty: 60 RF: 5 Discontinued oxycodone-acetaminophen [Percocet] 5-325 mg tablet 1 tab PO Q8H PRN (Reason: pain) 14 Days Qty: 42 RF: 0 No Action buspirone 15 mg tablet 15 mg PO DAILY Qty: 30 RF: 5 trazodone 50 mg tablet 50 mg PO BEDTIME Qty: 30 RF: 5 docusate sodium 250 mg capsule 250 mg PO DAILY Qty: 30 RF: 5 Follow up/Referrals: Nain Tran MD [Primary Care Provider] - Lazaro Hyde MD [Physician] - Provider Discharge Instructions Diet: Diet as Tolerated Food texture: Regular Activity: limited BLT 10 lbs max Cold/Heat Therapy: Ice packs as needed Skin/Wound/Dressing Care Report to your healthcare provider any signs of infection, such as:: chills, fever, night sweats, increased pain, unusual drainage and unusual redness Dressing: may change dressing and shower POD#5 (saturday) Visit Report/Discharge Packet Instructions: DI for Laminectomy Stand Alone Forms: Surgery Discharge Discharge Data Primary Care Provider: Nain Tran Attending Provider: Lazaro Hyde Admit Date/Time: 02/25/19 16:17 Quality VTE Deep Vein Thrombosis/Pulmonary Embolism Present on Admission: No
--- NOTE | 2019-02-28 12:50 | CM.DPC ---
DCP Cont: Patient is to be discharged today to [facility]. Called and notified Melba in admissions at [facility]. Let her know that PASSR would be faxed over to her, as well as med sheets, discharge summary. Let her know that patient has history of anxiety and depression, and is also under Dr. Yanes's care at [facility]. Let Melba know that this case operator would send over last note from Dr. Yanes's visit as well. Faxed over all paper work to Melba at [facility]. Confirmed time of steel pickler at approximately 1330. Updated nurse, Sara, and white board in main nurses station. Spoke to patient, had her sign her updated IMM. She is ok with the plan of going to [facility] for short term therapy, and hopeful to have home health after that. Updated patient on time of steel pickler as well. P: Patient is to be discharged to [facility] today. Simi Telles RN/Hosted Services Analyst
--- NOTE | 2019-02-28 13:57 | PC.NURSE ---
Transfer: IV dc'd intact. All personal belongings collected, including items from the safe, and sent with patient at transfer. Transfer packet given to transport staff including script for Percocet. Transferred to wheelchair and taken out by transport staff. Report called to Melba at [facility].
== END 2019-02-28 14:01 | DRG 520 ==
LOC: OR 02-26 06:55 → AC 02-26 06:56
PROVIDERS: Admitting Provider Orthopaedic Surgery; Family Provider Psychiatry & Neurology Psychiatry; PCP Student in an Organized Health Care Education/Training Program; Visit Provider Orthopaedic Surgery
DX: M48.062 Spinal stenosis, lumbar region with neurogenic claudication (principal); M51.36 Other intervertebral disc degeneration, lumbar region; Z96.641 Presence of right artificial hip joint; F32.9 Major depressive disorder, single episode, unspecified; F17.210 Nicotine dependence, cigarettes, uncomplicated; M85.48 Solitary bone cyst, other site; M62.830 Muscle spasm of back
CPT/HCPCS: 36415; 72020; 76000; 85014; 85018; 97110; 97116; 97161; 97165; 97530; 97535; 99406; C1776; J0131; J0690; J1100; J1885; J2704; J3010